=== PATIENT | male | born 1980 | race Caucasian/White ===

== ENCOUNTER 2019-05-05 17:38 | Emergency (ER) | payer SELFPAY ==
[2019-05-05 18:07] VITALS: BP 139/78; PULSE 115; RESP 16; TEMP 36.7; O2SAT 96; BMI 30.4
--- NOTE | 2019-05-05 19:35 | ED_ITS ---
HPI - General Adult General: Chief complaint: General Medical Stated complaint: hand and face swelling Time Seen by Provider: 05/05/19 19:26 History of Present Illness: HPI narrative: Patient complains about a sore in his right hand times few days now has drainage MD complaint: redness hand Onset (ago): day(s) Location: upper extremity Severity: mild Associated symptoms: Deny chest pain, dyspnea, headache(s), nausea, rash or vomiting Review of Systems Const: Denies: fever, chills or body aches Eyes: Denies: change in vision or blurry vision ENMT: Denies: throat pain, painful swallowing (Has wide area side of mouth and the inside patient does chew skeeps inside his mouth) or nasal congestion Card: Denies: chest pain or shortness of breath on exertion Resp: Denies: shortness of breath, productive cough or non-productive cough GI: Denies: abdominal pain, nausea or vomiting : Denies: difficulty urinating Musc: Denies: extremity pain Skin/Breast: Reports: redness, skin swelling and sores (Right hand); Denies: rash Neuro: Denies: headache Psych: Denies: anxiety or depression Oswaldo/Lymph: Denies: easy bruising PFSH ED PFSH: Statuses (acute, chronic, etc) shown below reflect problem list status as previously entered and may not be historically accurate Family History (Updated 04/28/19 @ 10:33 by Bonny Carter LPN) Grandmother Hypertension Social History (Updated 04/29/19 @ 13:08 by Bonny Carter LPN) Smoking and tobacco status: former smoker Alcohol intake: current Household members: spouse and children Marital status: service: No Current occupational status: employed Current occupation: [employer] History of recent travel: No Physical Exam Const: COMMON NORMALS: no apparent distress, average body habitus and oriented x3 HENMT: COMMON NORMALS: normocephalic HEAD & SCALP: normal to inspection and normocephalic FACE & SINUS: normal facial exam MOUTH: oral and palatal mucosa abnormal (Has whitish area to the oral mucosa on the right side near his lower jawline) Eye: COMMON NORMALS: conjunctivae normal GENERAL EYE: normal appearance of both eyes CONJUNCTIVA: Yes conjunctivae normal Neck/C-Spine: COMMON NORMALS: no JVD Chest: COMMONS NORMALS: inspection of chest normal Resp: COMMON NORMALS: normal respiratory effort and clear to auscultation bilaterally AUSCULTATION: clear to auscultation bilaterally Cardio: COMMON NORMALS: no JVD, regular rate and regular rhythm RATE: regular rate RHYTHM: regular rhythm GI: COMMON NORMALS: normal to inspection, nondistended, normoactive bowel sounds Extremity: COMMON NORMALS: normal to inspection and full ROM RIGHT UPPER EXTREMITY: Yes hand & digits (Erythema to the right dorsal hand does have an open sore probably about half centimeter by 2 mm does appear to have some scratches around) EXTREMITY IMAGE (FRONT): 1. erythema, mild Neuro: COMMON NORMALS: oriented x3 Course Vital Signs: Vital signs: Vital Signs Temperature 98.1 F 05/05/19 18:07 Pulse Rate 115 H 05/05/19 18:07 Respiratory Rate 16 05/05/19 18:07 Blood Pressure 139/78 05/05/19 18:07 Pulse Oximetry 96 05/05/19 18:07 Discharge Plan Discharge Patient Disposition: Home, Self-Care Clinical Impression: Leukoplakia of oral mucosa Cellulitis Qualifiers: Site of cellulitis: extremity Site of cellulitis of extremity: upper extremity Laterality: right Qualified Code(s): L03.113 - Cellulitis of right upper limb Condition: Stable Prescriptions: New Bactrim DS 800-160 mg tablet 1 tab PO BID 10 Days Qty: 20 RF: 0 No Action cyclobenzaprine 10 mg tablet 10 mg PO TID PRN (Reason: muscle spasm) RF: 0 prednisone 20 mg tablet 20 mg PO BID RF: 0 diclofenac sodium 75 mg tablet,delayed release (DR/EC) 75 mg PO BID RF: 0 hydrocodone-acetaminophen 5-325 mg tablet 1 tab PO Q6H PRNRF: 0 Discharge Orders: Discharge Order (Routine); Ordered 05/05/19 Ordered By: Donn Baumann Discharge Diet: Usual diet Discharge Activity: Resume usual activity Patient Instructions: Cellulitis (ED) Activity Restrictions/Additional Instructions: Follow-up with medical provider as directed. Take medications as prescribed. Return to the ER are your medical provider if condition worsens. Read and understand discharge instructions. Follow-up with dentist about whitish area in mouth within the next to 3 weeks Coding Level of Care Code ED Opinion Polls Survey Worker for iRcky Verdin
[2019-05-05 20:02] VITALS: BP 124/63; PULSE 88; RESP 16; TEMP 36.8; O2SAT 100
== END 2019-05-05 20:03 | disposition home or self-care (01) ==
PROVIDERS: Emergency Provider Nurse Practitioner Family
DX: K13.21 Leukoplakia of oral mucosa, including tongue (principal); L03.113 Cellulitis of right upper limb; Z87.891 Personal history of nicotine dependence
CPT/HCPCS: 99281

== ENCOUNTER 2019-09-22 17:46 | Emergency (ER) | payer SELFPAY ==
[2019-09-22 17:57] VITALS: BP 182/101; PULSE 85; RESP 14; TEMP 36.8; O2SAT 97; BMI 31.4
--- NOTE | 2019-09-22 18:17 | XR_ITS ---
WS: [id number] XR chest 1V portable [id number] REASON FOR EXAM: cp FINDINGS: Comparisons were made to April 20, 2018. The heart and mediastinal interfaces normal. The lung alva are adequately aerated. No pneumonia, pleural effusion, pulmonary edema, are pneumoth orax. The hilum and apices normal. XR/XR chest 1V portable [id number] IMPRESSION: Chest for acute pathology.
--- NOTE | 2019-09-22 18:17 | ECG_ITS ---
Measurements Intervals [place] Rate: 72 P: 53 NM: 169 QRS: 14 QRSD: 98 T: 18 QT: 344 QTc: 379 SINUS RHYTHM Compared to ECG 04/20/2018 21:17:27 No significant changes Electronically Signed On 09-23-2019 19:36:17 CDT by Ryan Rene M.D. [id number]
[2019-09-22 18:28] VITALS: BP 173/93; PULSE 75; RESP 16
--- NOTE | 2019-09-22 18:38 | W.ED.CHESTPA ---
HPI - Chest Pain General: Chief Complaint: Chest Pain Stated Complaint: cough,cp Time Seen by Provider: 09/22/19 18:17 History of Present Illness: HPI narrative: Chester is a 38-year-old male who comes in complaining of chest pain. He describes the pain as a pressure sensation in the middle of his chest. He states the pain has been constant since Sunday and abhishek waxed and waned in intensity but never completely subsided. He denies any associated symptoms such as radiation, shortness of breath, diaphoresis, nausea or vomiting, fever, syncope or near syncope. Patient states he has had a cough but it has been nonproductive and he denies any fever. Associated symptoms: Deny abdominal pain, diaphoresis, dyspnea, fever(s), nausea, palpitations, syncope or vomiting Review of Systems Const: Denies: fever(s), chills, body aches, fatigue, malaise or diaphoresis Eyes: Denies: change in vision, blurry vision, blind spots or photophobia ENMT: Denies: throat pain, odynophagia, hoarseness, swelling of lips/tongue, ear or mastoid pain, ear discharge, change in hearing or nasal discharge Card: Reports: chest pain; Denies: palpitations, irregular heart rhythm, edema, lightheadedness, syncope, pre-syncope, dyspnea on exertion or orthopnea Resp: Reports: non-productive cough; Denies: dyspnea, productive cough, wheezing, hemoptysis or chest congestion GI: Denies: abdominal pain, nausea, vomiting, hematemesis, coffee ground emesis, heartburn, diarrhea, constipation, GI cramping, hematochezia or melena : Denies: flank pain, dysuria, urinary frequency, urinary urgency or hematuria Musc: Denies: neck pain, back pain, extremity pain, extremity swelling, joint pain, joint swelling, joint redness, joint warmth or joint stiffness Skin/Breast: Denies: rash, pruritus, erythema, skin tenderness or jaundice Neuro: Denies: headache(s), numbness in extremities, weakness in extremities, sensory changes, lack of coordination, difficulty walking, dizziness, vertigo, confusion or Slurred speech present Oswaldo/Lymph: Denies: easy bruising, easy bleeding, petechiae, purpura or enlarged lymph nodes All/Imm: Denies: urticaria, throat swelling, tongue swelling, facial swelling or acute wheezing PFSH ED PFSH: Medical History (Updated 09/22/19 @ 19:48 by Lisa Akers) No pertinent past medical history Surgical History (Updated 09/22/19 @ 18:40 by Lisa Akers) H/O hemorrhoidectomy Family History (Updated 04/28/19 @ 10:33 by Bonny Carter LPN) Grandmother Hypertension Social History (Updated 04/29/19 @ 13:08 by Bonny Carter LPN) Smoking and tobacco status: never smoked Alcohol intake: current Household members: spouse and children Marital status: service: No Current occupational status: employed Current occupation: [employer] History of recent travel: No Physical Exam Const: COMMON NORMALS: no acute distress, patient oriented x3, no limitations, healthy appearing and well nourished GENERAL APPEARANCE: cooperative, well kempt and well developed HENMT: COMMON NORMALS: normocephalic, atraumatic, hearing grossly normal bilaterally, external ears normal, EAC's normal, Normal external nose present and moist oral mucous membranes HEAD & SCALP: normocephalic and atraumatic NOSE: Normal external nose present and Normal nares present EXTERNAL EAR: Yes external ears normal EXTERNAL AUDITORY CANAL: EAC's normal MOUTH: Normal oral and palatal mucosa present, lip normal and tongue normal Eye: COMMON NORMALS: Equal, round and reactive pupils present, EOMs intact bilaterally, conjunctivae normal and no scleral icterus GENERAL EYE: appearance normal, both eyes and all related structures ALIGNMENT: Yes alignment normal PERIORBITAL: periorbital findings normal EYELID: eyelids normal CONJUNCTIVA: Yes conjunctivae normal SCLERA: sclerae normal PUPIL: Yes Equal, round and reactive pupils present Neck/C-Spine: COMMON NORMALS: full ROM, no lymphadenopathy, supple, no meningeal signs and no JVD GENERAL: Yes normal visual inspection and Yes trachea midline Chest: COMMONS NORMALS: normal inspection of the chest and normal palpation of entire chest wall Resp: COMMON NORMALS: normal respiratory effort, No retractions, No use of accessory muscles and clear to auscultation bilaterally EFFORT & INSPECTION: Yes able to speak in complete sentences and Yes symmetric chest movement AUSCULTATION: clear to auscultation bilaterally, no crackles, no rales, no rhonchi and no wheezes Cardio: COMMON NORMALS: no JVD, regular rate, regular rhythm, S1 normal heart sound present, S2 normal heart sound present, No gallops present (Cardio), No clicks present (Cardio), No murmurs present (Cardio) and No rub (Cardio) RATE: regular rate RHYTHM: regular rhythm HEART SOUNDS: S1 normal heart sound present and S2 normal heart sound present GI: COMMON NORMALS: Soft to palpation and No hepatosplenomegaly present PALPATION: Yes Soft to palpation, No Tenderness to palpation present (GI), No Guarding due to palpation present (GI), No Rigid due to palpation, Yes No hepatosplenomegaly present, No Hernia present, No Palpable mass present and No Pulsatile mass present : COMMON NORMALS: Yes no CVA tenderness BLADDER/KIDNEY EXAM: Yes no CVA tenderness Back/Pelvis: COMMON NORMALS: no CVA tenderness, thoracic and lumbar spine normal to inspection, no thoracic nor lumbar tenderness and thoraco-lumbar ROM normal Extremity: COMMON NORMALS: normal to inspection, full ROM, capillary refill normal, no joint enlargement, no clubbing, cyanosis or edema and no calf tenderness Neuro: COMMON NORMALS: patient oriented x3, CN's II-XII intact bilaterally, moves all extremities, no focal motor deficits and no sensory deficits noted MENINGEAL SIGNS: Yes no meningeal signs SPEECH: speech normal Psych: COMMON NORMALS: mental status grossly normal, Normal thought process present, cooperative, normal affect, speech normal and activity/motor behavior normal APPEARANCE: Yes well kempt SPEECH: Yes normal speech THOUGHT PROCESS: Normal thought process present Skin: COMMON NORMALS: no rashes or lesions noted, turgor normal, no jaundice, no petechiae and no mottling GENERAL SKIN EXAM: no rashes or lesions noted and turgor normal Course Vital Signs: Vital signs: Vital Signs Temperature 98.3 F 09/22/19 17:57 Pulse Rate 75 09/22/19 20:37 Respiratory Rate 18 09/22/19 20:37 Blood Pressure 144/97 09/22/19 20:37 Pulse Oximetry 97 09/22/19 20:37 MDM - Chest Pain MDM Narrative: Medical decision making narrative: Patient is PERC rule negative. He has no signs or symptoms of PE. Patient has had constant chest pain for 3 days. Per the hospital chest pain pathway and utilizing the heart score the patient should be safe for discharge. His heart score is 1. He is now asking about tick bites he said he was bitten by a tick but wanted to know if that could cause chest discomfort but I see no evidence of blocks or Lyme's myocarditis. Patient declines any further testing and would like to go home. He does agree to return should his symptoms change or worsen. Lab Data: Attestation: I reviewed the patient's lab results. Labs: Lab Results 09/22/19 09/22/19 09/22/19 Range/Units 18:25 18:25 18:25 WBC 6.1 (4.0-10.0) 10^3/ uL RBC 4.85 (4.1-5.3) 10^6/u L Hgb 14.1 (11.7-16.6) g/dL Hct 42.7 (42.0-52.0) % MCV 88.0 (80-94) fL MCH 29.1 (28.0-34.0) pg MCHC 33.0 (30.0-36.0) g/dL RDW 11.9 L (12.1-15.1) % Plt Count 213 (130-400) 10^3/c mm MPV 10.4 (7.4-10.4) fL Neut % (Auto) 59.3 % Lymph % (Auto) 27.1 % Evangeline % (Auto) 9.9 % Eos % (Auto) 2.0 % Baso % (Auto) 1.5 % Neut # (Auto) 3.6 (1.8-7.7) 10^3/u L Lymph # (Auto) 1.6 (0.8-4.8) 10^3/u L Evangeline # (Auto) 0.6 (0.2-0.9) 10^3/u L Eos # (Auto) 0.1 (0.0-0.8) 10^3/u L Baso # (Auto) 0.1 (0.0-0.1) 10^3/u L Nucleated RBC % (a uto) 0 % Nucleated RBCs # 0.0 /100WBC Sodium 139 (136-145) mmol/L Potassium 4.0 (3.5-5.1) mmol/L Chloride 100 (98-107) mmol/L Carbon Dioxide 25 (22-29) mmol/L Anion Gap 18.0 (5-19) BUN 11 (6-20) mg/dL Creatinine 1.4 H (0.7-1.2) mg/dL GFR Calculation 56.1 L (90-130) mL/min Glucose 119 H (65-115) mg/dL Calculated Osmolal ity 285 (285-295) mOsm/k g Calcium 9.6 (8.5-10.5) mg/dL Total Bilirubin 0.4 (0.15-1.2) mg/dL AST 40 (0-40) U/L ALT 59 H (0-41) U/L Alkaline Phosphata se 97 (40-130) IU/L Troponin T Baselin e 15 (0-15) ng/mL Troponin T 120 Min francesca (0-15) ng/mL Total Protein 7.1 (6.6-8.7) g/dL Albumin 4.5 (3.5-5.2) g/dL Globulin 2.6 (1.3-4.6) g/dL 09/22/19 Range/Units 20:06 WBC (4.0-10.0) 10^3/ uL RBC (4.1-5.3) 10^6/u L Hgb (11.7-16.6) g/dL Hct (42.0-52.0) % MCV (80-94) fL MCH (28.0-34.0) pg MCHC (30.0-36.0) g/dL RDW (12.1-15.1) % Plt Count (130-400) 10^3/c mm MPV (7.4-10.4) fL Neut % (Auto) % Lymph % (Auto) % Evangeline % (Auto) % Eos % (Auto) % Baso % (Auto) % Neut # (Auto) (1.8-7.7) 10^3/u L Lymph # (Auto) (0.8-4.8) 10^3/u L Evangeline # (Auto) (0.2-0.9) 10^3/u L Eos # (Auto) (0.0-0.8) 10^3/u L Baso # (Auto) (0.0-0.1) 10^3/u L Nucleated RBC % (a uto) % Nucleated RBCs # /100WBC Sodium (136-145) mmol/L Potassium (3.5-5.1) mmol/L Chloride (98-107) mmol/L Carbon Dioxide (22-29) mmol/L Anion Gap (5-19) BUN (6-20) mg/dL Creatinine (0.7-1.2) mg/dL GFR Calculation (90-130) mL/min Glucose (65-115) mg/dL Calculated Osmolal ity (285-295) mOsm/k g Calcium (8.5-10.5) mg/dL Total Bilirubin (0.15-1.2) mg/dL AST (0-40) U/L ALT (0-41) U/L Alkaline Phosphata se (40-130) IU/L Troponin T Baselin e (0-15) ng/mL Troponin T 120 Min francesca 15.83 H (0-15) ng/mL Total Protein (6.6-8.7) g/dL Albumin (3.5-5.2) g/dL Globulin (1.3-4.6) g/dL Imaging Data^: CXR: Attestation: I personally reviewed and interpreted this imaging study as follows: My impression: No acute cardiopulmonary findings. EKG Data^: EKG 1: Attestation: I personally reviewed and interpreted this EKG as follows: EKG interpretation date: 09/22/19 EKG interpretation time: 17:56 Interpretation: Normal sinus rhythm at 72 beats a minute, normal axis, no blocks, normal intervals, no acute ST or T wave changes. Discharge Plan Discharge Patient Disposition: Home, Self-Care Clinical Impression: Chest pain Qualifiers: Chest pain type: unspecified Qualified Code(s): R07.9 - Chest pain, unspecified Condition: Stable Prescriptions: No Action Aspir-81 81 mg Tablet,Delayed Release (Dr/Ec) 81 mg PO DAILY RF: 0 Discharge Orders: Discharge Order (Routine); Ordered 09/22/19 Ordered By: Lisa Akers Referrals: Ryan Rene MD [Physician] - 1-3 days Discharge Diet: Advance as tolerated Discharge Activity: Resume usual activity Patient Instructions: Chest Pain (ED) Activity Restrictions/Additional Instructions: Please return to the ER immediately for any of the signs or symptoms listed on your discharge instruction sheets, worsening/changing of your symptoms, you are not getting better as quickly as expected, or for ANY other cause or concerns. You have been offered further evaluation and care of your heart but have declined. If your symptoms change or worsen in any way please return to the ER immediately for recheck. Stand Alone Forms: Work/School Release Discharge Date/Time: 09/22/19 20:38 Coding Level of Care Code ED Hand Deicer Element Winder for Ricky Fwd Exam Comprehensive
[2019-09-22 18:46] LABS: Basophils # 0.1 10^3/uL (0.0-0.1); Basophils % 1.5 %; Eosinophils # 0.1 10^3/uL (0.0-0.8); Hematocrit 42.7 % (42.0-52.0); Hemoglobin 14.1 g/dL (11.7-16.6); Lymphocytes # 1.6 10^3/uL (0.8-4.8); Lymphocytes % 27.1 %; Mean Corpuscular Hemoglobin 29.1 pg (28.0-34.0); Mean Platelet Volume 10.4 fL (7.4-10.4); Monocytes # 0.6 10^3/uL (0.2-0.9); Monocytes % 9.9 %; Neutrophils # 3.6 10^3/uL (1.8-7.7); Neutrophils % 59.3 %; Nucleated Red Blood Cells % 0 %; Platelet Count 213 10^3/cmm (130-400); Red Blood Count 4.85 10^6/uL (4.1-5.3); Red Cell Distribution Width 11.9 % (12.1-15.1); White Blood Count 6.1 10^3/uL (4.0-10.0)
[2019-09-22 19:21] LABS: Troponin(5th) Baseline 15 ng/mL (0-15)
[2019-09-22 19:38] LABS: Alanine Aminotransferase 59 U/L (0-41); Albumin Level 4.5 g/dL (3.5-5.2); Alkaline Phosphatase 97 IU/L (40-130); Aspartate Amino Transferase 40 U/L (0-40); Blood Urea Nitrogen 11 mg/dL (6-20); Calcium 9.6 mg/dL (8.5-10.5); Carbon Dioxide 25 mmol/L (22-29); Chloride 100 mmol/L (98-107); Globulin 2.6 g/dL (1.3-4.6); Glomerular Filtration Rate 56.1 mL/min (90-130); Glucose 119 mg/dL (65-115); Osmolality Calculated 285 mOsm/kg (285-295); Sodium 139 mmol/L (136-145); Total Bilirubin 0.4 mg/dL (0.15-1.2); Total Protein 7.1 g/dL (6.6-8.7)
--- NOTE | 2019-09-22 20:17 | ECG_ITS ---
Measurements Intervals [place] Rate: 69 P: 62 [place]: 168 QRS: 6 QRSD: 94 T: 19 QT: 368 QTc: 396 SINUS RHYTHM Compared to ECG 04/20/2018 21:17:27 No significant changes Electronically Signed On 09-23-2019 19:39:13 CDT by Ryan Rene M.D. [id number]
[2019-09-22 20:37] VITALS: BP 144/97; PULSE 75; RESP 18; O2SAT 97
[2019-09-22 20:40] LABS: Troponin 5 2HR 15.83 ng/mL (0-15); Troponin 5 2HR Delta 0.83 ABS# (0-10)
== END 2019-09-22 20:38 | disposition home or self-care (01) ==
PROVIDERS: Emergency Medicine; Emergency Provider Emergency Medicine
DX: R07.9 Chest pain, unspecified (principal); Z79.82 Long term (current) use of aspirin
CPT/HCPCS: 12345; 36415; 71045; 80053; 84484; 85025; 93005; 99283; 99284

== ENCOUNTER → 2021-03-30 14:29 | Outpatient (BNVA) | payer MEDICAID, SELFPAY | PROVIDERS: Visit Provider Nurse Practitioner | DX: M25.511 Pain in right shoulder; M19.011 Primary osteoarthritis, right shoulder | CPT/HCPCS: 73030 ==

== ENCOUNTER → 2021-06-29 09:27 | Outpatient (BNVA) | payer MEDICAID, SELFPAY | PROVIDERS: Visit Provider Family Medicine Adult Medicine | DX: Z13.6 Encounter for screening for cardiovascular disorders (principal) | CPT/HCPCS: 80053; 80061; 83036; 83721; 84443; 85025 ==

== ENCOUNTER → 2021-07-12 14:55 | Outpatient (BNVA) | payer MEDICAID, SELFPAY | PROVIDERS: Visit Provider Family Medicine Adult Medicine | DX: M75.51 Bursitis of right shoulder (principal); M19.011 Primary osteoarthritis, right shoulder; Z80.0 Family history of malignant neoplasm of digestive organs | CPT/HCPCS: 73030 ==

== ENCOUNTER 2021-07-14 20:14 | Emergency (ER) | payer MEDICAID, SELFPAY ==
[2021-07-14 20:29] VITALS: BP 169/100; PULSE 96; RESP 20; TEMP 37; O2SAT 96; BMI 32.1
--- NOTE | 2021-07-14 20:33 | XRR_ITS ---
PROCEDURE INFORMATION: Exam: XR Chest Exam date and time: 07/14/2021 8:38 PM Age: 40 years old Clinical indication: Chest pressure; Patient HX: C/O chest pain. ; Additional info: Cp TECHNIQUE: Imaging protocol: XR of the chest. Views: 1 view. COMPARISON: CR XR chest 1V portable [id number] 09/22/2019 6:26 PM FINDINGS: Lungs: Lungs are clear bilaterally. Pleural spaces: No pleural effusion. No pneumothorax. Heart/Mediastinum: Stable mild enlargement of the cardiac silhouette. Mediastinal contours are unremarkable. Bones/joints: Unremarkable for age. XR/XR chest 1V portable [id number] IMPRESSION: 1. No acute cardiopulmonary process. 2. Stable mild enlargement of the cardiac silhouette.
--- NOTE | 2021-07-14 20:33 | ECG_ITS ---
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 Measurements Intervals [place] Rate: 80 P: 71 [place]: 159 QRS: 28 QRSD: 98 T: 46 QT: 337 QTc: 390 Interpretive Statements SINUS RHYTHM WITH SINUS ARRHYTHMIA Compared to ECG 09/22/2019 20:20:47 No significant changes Electronically Signed On 07-15-2021 17:45:59 CDT by Sabra Gardner M.D. [id number] f
[2021-07-14 22:05] LABS: Basophils # 0.1 10^3/uL (0.0-0.1); Basophils % 1.4 %; Eosinophils # 0.4 10^3/uL (0.0-0.8); Eosinophils % 5.3 %; Lymphocytes # 1.7 10^3/uL (0.8-4.8); Lymphocytes % 21.9 %; Mean Corpuscular HGB Conc 33.3 g/dL (30.0-36.0); Mean Corpuscular Hemoglobin 30.1 pg (28.0-34.0); Mean Corpuscular Volume 90.4 fl (80-94); Mean Platelet Volume 9.9 fL (7.4-10.4); Monocytes # 0.8 10^3/uL (0.2-0.9); Monocytes % 10.6 %; Neutrophils # 4.69 10^3/uL (1.8-7.7); Neutrophils % 60.5 %; Nucleated Red Blood Cells % 0 %; Platelet Count 267 10^3/cmm (130-400); Red Blood Count 4.98 10^6/uL (4.1-5.3); Red Cell Distribution Width 11.8 % (12.1-15.1); White Blood Count 7.8 10^3/uL (4.0-10.0)
[2021-07-14 22:22] LABS: Troponin(5th) Baseline 6 ng/L (0-15)
[2021-07-14 22:24] LABS: Alanine Aminotransferase 75 U/L (0-41); Albumin Level 4.7 g/dL (3.5-5.2); Alkaline Phosphatase 72 IU/L (40-130); Anion Gap 13.1 (5-19); Aspartate Amino Transferase 45 U/L (0-40); Blood Urea Nitrogen 14 mg/dL (6-20); Calcium 9.8 mg/dL (8.5-10.5); Carbon Dioxide 28 mmol/L (22-29); Chloride 104 mmol/L (98-107); Glomerular Filtration Rate 92.5 mL/min (90-130); Glucose 93 mg/dL (65-115); Osmolality Calculated 292 mOsm/kg (285-295); Potassium 4.1 mmol/L (3.5-5.1); Sodium 141 mmol/L (136-145); Total Bilirubin 0.4 mg/dL (0.15-1.2); Total Protein 6.7 g/dL (6.6-8.7)
--- NOTE | 2021-07-14 22:33 | ECG_ITS ---
[facility] Test Date: 2021-07-14 Pat Name: Chester To Department: Room: Gender: Male College Hire: : 1980 Requested By: Marcelle Begum Order Number: [id number] Avni MD: Sabra Gardner M.D. Measurements Intervals [place] Rate: 63 P: 67 [place]: 163 QRS: 29 QRSD: 98 T: 38 QT: 371 QTc: 381 Interpretive Statements SINUS RHYTHM Compared to ECG 07/14/2021 20:25:40 Sinus arrhythmia no longer present Electronically Signed On 07-15-2021 17:52:01 CDT by Sabra Gardner M.D. [id number]
[2021-07-14 23:16] VITALS: BP 136/90; PULSE 70; RESP 20; O2SAT 97
[2021-07-14 23:30] VITALS: BP 138/94; PULSE 67; RESP 18; O2SAT 97
[2021-07-14 23:36] VITALS: O2SAT 97
[2021-07-14 23:58] LABS: D Dimer <= 0.27 ug/mIFEU (0-0.59)
--- NOTE | 2021-07-14 23:58 | W.ED.CHESTPA ---
HPI - Chest Pain General: Chief Complaint: Chest Pain Stated Complaint: Chest Pain Poss Heart Attack Time Seen by Provider: 07/14/21 23:06 Source: patient Mode of arrival: ambulatory Limitations: no limitations History of Present Illness: 40-year-old male who states that throughout the day has been having a sharp sore-like pain in the center of his chest he states has been constant but has been improving throughout the day. States pain is currently 2 out of 10 denies any worsening improving factors denies any exertional component. Denies any nausea had some mild dyspnea. Associated symptoms: Reports dyspnea; Deny abdominal pain, fever(s), nausea or vomiting Review of Systems Const: Denies: fever(s), chills, body aches or change in appetite Eyes: Denies: blurry vision or eye discomfort ENMT: Denies: throat pain or dental pain Card: Reports: chest pain Resp: Reports: dyspnea GI: Denies: abdominal pain, nausea, vomiting or diarrhea : Denies: dysuria Musc: Denies: neck pain or back pain Skin/Breast: Denies: rash Neuro: Denies: headache(s) Psych: Denies: depression Oswaldo/Lymph: Denies: easy bruising All/Imm: Denies: urticaria PFSH ED PFSH: Medical History AC joint arthropathy Chronic bursitis of right shoulder Family history of colon cancer Hyperlipidemia Obesity (BMI 30.0-34.9) Surgical History H/O hemorrhoidectomy Family History Grandmother Hypertension Other Cancer Social History Smoking and tobacco status: former smoker (chew) Alcohol intake: current Household members: spouse and children Marital status: service: No Current occupational status: employed Current occupation: [employer] [place] [employer] History of recent travel: No Physical Exam Const: COMMON NORMALS: no acute distress, patient oriented x3 and healthy appearing HENMT: COMMON NORMALS: normocephalic and atraumatic HEAD & SCALP: normocephalic and atraumatic Eye: COMMON NORMALS: Equal, round and reactive pupils present and EOMs intact bilaterally PUPIL: Yes Equal, round and reactive pupils present Neck/C-Spine: COMMON NORMALS: full ROM and supple Chest: COMMONS NORMALS: normal inspection of the chest and normal palpation of entire chest wall Resp: COMMON NORMALS: normal respiratory effort, No retractions, No use of accessory muscles and clear to auscultation bilaterally AUSCULTATION: clear to auscultation bilaterally Cardio: COMMON NORMALS: regular rate, regular rhythm and No murmurs present (Cardio) RATE: regular rate RHYTHM: regular rhythm GI: COMMON NORMALS: Normal to inspection, nondistended, normoactive bowel sounds present, Soft to palpation, non-tender and no masses PALPATION: Yes Soft to palpation Extremity: COMMON NORMALS: normal to inspection and full ROM Neuro: COMMON NORMALS: patient oriented x3, moves all extremities and no focal motor deficits Psych: COMMON NORMALS: mental status grossly normal, Normal thought process present and cooperative THOUGHT PROCESS: Normal thought process present Skin: COMMON NORMALS: no rashes or lesions noted and no wounds GENERAL SKIN EXAM: no rashes or lesions noted Course Vital Signs: Vital signs: Vital Signs Temperature 98.6 F 07/14/21 20:29 Pulse Rate 67 07/14/21 23:30 Respiratory Rate 18 07/14/21 23:30 Blood Pressure 138/94 07/14/21 23:30 Pulse Oximetry 97 07/14/21 23:36 MDM - Chest Pain Medical Decision Making Patient presents for chest pains atypical in nature his initial troponin repeat troponin here both normal. Patient's D-dimer is negative his pain here is improved we will get him cardiology follow-up he is return if worsening he understands agrees to plan. Lab Data : 07/14/21 21:50 07/14/21 21:50 Radiology Impressions Chest X-Ray 07/14/21 20:33 IMPRESSION: 1. No acute cardiopulmonary process. 2. Stable mild enlargement of the cardiac silhouette. Laboratory Results WBC 7.8 10^3/uL (4.0-10.0) 07/14/21 21:50 RBC 4.98 10^6/uL (4.1-5.3) 07/14/21 21:50 Hgb 15.0 g/dL (11.7-16.6) 07/14/21 21:50 Hct 45.0 % (42.0-52.0) 07/14/21 21:50 MCV 90.4 fl (80-94) 07/14/21 21:50 MCH 30.1 pg (28.0-34.0) 07/14/21 21:50 MCHC 33.3 g/dL (30.0-36.0) 07/14/21 21:50 RDW 11.8 % (12.1-15.1) L 07/14/21 21:50 Plt Count 267 10^3/cmm (130-400) 07/14/21 21:50 MPV 9.9 fL (7.4-10.4) 07/14/21 21:50 Neut % (Auto) 60.5 % 07/14/21 21:50 Lymph % (Auto) 21.9 % 07/14/21 21:50 Emmons % (Auto) 10.6 % 07/14/21 21:50 Eos % (Auto) 5.3 % 07/14/21 21:50 Baso % (Auto) 1.4 % 07/14/21 21:50 Neut # (Auto) 4.69 10^3/uL (1.8-7.7) 07/14/21 21:50 Lymph # (Auto) 1.7 10^3/uL (0.8-4.8) 07/14/21 21:50 Emmons # (Auto) 0.8 10^3/uL (0.2-0.9) 07/14/21 21:50 Eos # (Auto) 0.4 10^3/uL (0.0-0.8) 07/14/21 21:50 Baso # (Auto) 0.1 10^3/uL (0.0-0.1) 07/14/21 21:50 Nucleated RBC % (auto) 0 % 07/14/21 21:50 Nucleated RBCs # 0.0 /100WBC 07/14/21 21:50 D-Dimer <= 0.27 ug/mIFEU (0-0.59) 07/14/21 23:39 Sodium 141 mmol/L (136-145) 07/14/21 21:50 Potassium 4.1 mmol/L (3.5-5.1) 07/14/21 21:50 Chloride 104 mmol/L (98-107) 07/14/21 21:50 Carbon Dioxide 28 mmol/L (22-29) 07/14/21 21:50 Anion Gap 13.1 (5-19) 07/14/21 21:50 BUN 14 mg/dL (6-20) 07/14/21 21:50 Creatinine 0.9 mg/dL (0.7-1.2) 07/14/21 21:50 GFR Calculation 92.5 mL/min (90-130) 07/14/21 21:50 Glucose 93 mg/dL (65-115) 07/14/21 21:50 Calculated Osmolality 292 mOsm/kg (285-295) 07/14/21 21:50 Calcium 9.8 mg/dL (8.5-10.5) 07/14/21 21:50 Total Bilirubin 0.4 mg/dL (0.15-1.2) 07/14/21 21:50 AST 45 U/L (0-40) H 07/14/21 21:50 ALT 75 U/L (0-41) H 07/14/21 21:50 Alkaline Phosphatase 72 IU/L (40-130) 07/14/21 21:50 Troponin T Baseline 6 ng/L (0-15) 07/14/21 21:50 Troponin T 120 Minute 6.71 ng/L (0-15) 07/14/21 23:39 Delta Troponin T 0.71 ABS# (0-10) 07/14/21 23:39 Total Protein 6.7 g/dL (6.6-8.7) 07/14/21 21:50 Albumin 4.7 g/dL (3.5-5.2) 07/14/21 21:50 Globulin 2.0 g/dL (1.3-4.6) 07/14/21 21:50 EKG Data EKG 1: I personally reviewed and interpreted this EKG as follows: EKG interpretation date: 07/15/21 EKG interpretation time: 22:30 Interpretation: nsr hr [address] or t wave abnormalities qrs 98 qtc 378 Discharge Plan Discharge Patient Disposition: Home Clinical Impression: Chest pain Condition: Stable Prescriptions: No Action meloxicam 15 mg tablet 15 mg PO DAILY 14 Days Qty: 14 0RF baclofen 10 mg tablet 10 mg PO TID Qty: 20 0RF atorvastatin 20 mg tablet 20 mg PO DAILY Qty: 30 5RF Discharge Orders: Discharge ED (Routine); Ordered 07/15/21 Ordered By: Marcelle Begum Referrals: Sabra Gardner MD [Physician] - 1-3 days Discharge Diet: Advance as tolerated Discharge Activity: Resume usual activity Patient Instructions: Chest Pain (ED) Coding Level of Care Code ED Public Transit Specialist for Chg Fwd Exam Comprehensive
[2021-07-15 00:01] LABS: Troponin 5 2HR 6.71 ng/L (0-15)
[2021-07-15 00:04] LABS: Troponin 5 2HR Delta 0.71 ABS# (0-10)
[2021-07-15] MEDS: aspirin 81 mg Chew Tablet 324 MG PO (00:04)
[2021-07-15 01:12] VITALS: BP 145/88; PULSE 79; RESP 20; O2SAT 96
--- NOTE | 2021-07-15 10:29 | DCPLANNER ---
Addendum entered by Aminah Jeffery 09/08/21 10:15: Patient had a follow up appointment scheduled for 09.06.[address] Gardner at [facility] - patient did not attend appointment. Addendum entered by Aminah Jeffery 07/19/21 13:23: Patient has a follow up appointment scheduled for Monday, September 06, 2021 at 2:[address] Gardner at [facility]. manager statistical programming called patient, spoke with his , gave her the appointment information. Original Note: manager statistical programming had message to schedule a follow up appointment for patient with [facility]. manager statistical programming sent patients information to [facility], thru [employer] system. Patients information will be printed and reviewed. Clinic will inform gearcase assembler of appointment information, gearcase assembler will call patient with appointment information.
== END 2021-07-15 01:14 | disposition home or self-care (01) ==
PROVIDERS: Emergency Provider Emergency Medicine
DX: R07.9 Chest pain, unspecified (principal); E78.5 Hyperlipidemia, unspecified; Z87.891 Personal history of nicotine dependence
CPT/HCPCS: 36415; 71045; 80053; 84484; 85025; 85378; 93005; 99284

== ENCOUNTER → 2021-08-02 13:06 | Outpatient (BNVA) | payer MEDICAID, SELFPAY | PROVIDERS: Referring Provider Family Medicine Adult Medicine; Visit Provider Orthopaedic Surgery | DX: M25.511 Pain in right shoulder (principal); Z87.891 Personal history of nicotine dependence | CPT/HCPCS: 99203 ==

== ENCOUNTER 2021-08-24 06:53 | Day surgery (SDC) | payer MEDICAID, SELFPAY ==
[2021-08-22 08:34] VITALS: BMI 30.7
[2021-08-24 07:08] VITALS: BP 142/91; PULSE 66; RESP 18; TEMP 36.3; O2SAT 96
[2021-08-24] MEDS: sodium chloride 0.9% 1,000 ML 30 ML IV (07:18)
--- NOTE | 2021-08-24 07:58 | P.HP_ITS ---
Same Day Surgery H&P Indication for Procedure/HPI DATE OF PROCEDURE: August 24, 2021 CHIEF COMPLAINT/INDICATIONFOR SURGICAL PROCEDURE: colonoscopy PREOP DIAGNOSIS: diagnostic PLANNED PROCEDURE: Operation Date: 08/24/21 08:30 Proposed Procedures p EGD [id number]/r10.9/z80.0(Not Applicable) - Demetrius Reece MD s Colonoscopy(Not Applicable) - Demetrius Reece MD Medications/Allergies* Home Medications Medication Instructions Recorded Confirmed Type No Known Home Medications 08/22/21 08/24/21 History Allergies/Adverse Reactions Allergy/AdvReac Type Severity Reaction Status Date / Time No Known Allergies Allergy Verified 08/24/21 07:07 Current Medications: Generic Name Dose Route Start Last Admin Trade Name Freq PRN Reason Stop Dose Admin Sodium Chloride 1,000 mls @ 30 mls/hr 08/24/21 07:15 08/24/21 07:18 Sodium Chloride 0.9% IV 08/25/21 07:14 30 mls/hr .Q24H JD Administration Pertinent History/Comorbid Conditions* Medical History (Updated 08/02/21 @ 13:52 by Jarocho Taylor MD) Chronic bursitis of right shoulder History of femoral angiogram Hyperlipidemia Surgical History (Updated 09/22/19 @ 18:40 by Lisa Akers) H/O hemorrhoidectomy Family History (Updated 07/12/21 @ 14:22 by Carole Almazan LPN) Cancer Hypertension Grandmother Social History Smoking and tobacco status: former smoker (chew) Alcohol intake: current Household members: spouse and children Marital status: service: No Current occupational status: employed Current occupation: [employer] History of recent travel: No Pertinent Exam Findings alert, oriented x 3 and regular rate & rhythm Recommendations Surgery/Procedure today Coding Level of Care Code Acute Degreasing Wheel Operator for Ricky Verdin
--- NOTE | 2021-08-24 07:59 | ANES.PREANE2 ---
Pre-Anesthetic Assessment Height/Weight: Height 1.8 m Weight 99.79 kg Temp Pulse Resp BP Pulse Ox 97.3 F L 66 18 142/91 96 08/24/21 07:08 08/24/21 07:08 08/24/21 07:08 08/24/21 07:08 08/24/21 07:08 Preop Diagnosis: diagnostic Operation Date: 08/24/21 08:30 Proposed Procedures p EGD [id number]/r10.9/z80.0(Not Applicable) - Demetrius Reece MD s Colonoscopy(Not Applicable) - Demetrius Reece MD Familial anesthetic complications: none Was Beta Rudi taken within 24 hours: N/A Was Clonidine taken within 24 hours: N/A Last intake: Intake Last Liquid Date 08/23/21 Last Liquid Time 23:30 Last Solid Date 08/22/21 Last Solid Time 20:30 Social No alcohol and No tobacco (h/o smoking) Exam alert, oriented x 3, clear to auscultation bilaterally and regular rate & rhythm Airway Submandibular: within normal limits Cervical ROM: within normal limits Mallampati: Class II Dentition: chipped Pulmonary Chronic Obstructive Pulmonary Disease CV/HEM Hypertension Metabolic Hyperlipidemia and Morbid Obesity Neuropsych Cerebrovascular Accident and Deficit (left facial droop) Anesthetic Plan ASA status: 3 Anesthesia: MAC Medications/Allergies Home Medications Medication Instructions Recorded Confirmed Last Taken Type No Known Home Medications 08/22/21 08/24/21 Unknown History Allergies Allergy/AdvReac Type Severity Reaction Status Date / Time No Known Allergies Allergy Verified 08/24/21 07:07 Current Medications Generic Name Dose Route Start Last Admin Trade Name Freq PRN Reason Stop Dose Admin Sodium Chloride 1,000 mls @ 30 mls/hr 08/24/21 07:15 08/24/21 07:18 Sodium Chloride 0.9% IV 08/25/21 07:14 30 mls/hr .Q24H JD Administration PFSH Anesthesia Medical History Chronic bursitis of right shoulder History of femoral angiogram Hyperlipidemia Surgical History H/O hemorrhoidectomy Family History Grandmother Hypertension Other Cancer Social History Smoking and tobacco status: former smoker (chew) Alcohol intake: current Household members: spouse and children Marital status: service: No Current occupational status: employed Current occupation: [employer] History of recent travel: No Data Anesthesia Cardiac Studies: No Data to Display
[2021-08-24 08:47] VITALS: BP 170/87; PULSE 88; RESP 14; TEMP 36.1; O2SAT 95
[2021-08-24 09:00] VITALS: BP 105/78; PULSE 88; RESP 16; O2SAT 96
--- NOTE | 2021-08-24 12:37 | ANE.PACU2 ---
Inpatient post-anesthesia follow up: Airway intact: Yes Vital signs: Temperature 97 F Pulse Rate 88 Respiratory Rate 16 Blood Pressure 105/78 Pulse Oximetry 96 Oxygen Delivery Me thod Room Air Oxygen Flow Rate 4 Fraction of Inspir ed Oxygen Hydration adequate: Yes Nausea and vomiting: No Pain level: 1 Mental status: Baseline
== END 2021-08-24 09:15 | disposition home or self-care (01) ==
PROVIDERS: PCP Family Medicine Adult Medicine; Visit Provider Surgery
PROC: 0DJ08ZZ Inspection of Upper Intestinal Tract, Via Natural or Artificial Opening Endoscopic (ICD-10-PCS; CPT 43235; principal; 2021-08-24 08:30)
PROC: 0DJD8ZZ Inspection of Lower Intestinal Tract, Via Natural or Artificial Opening Endoscopic (ICD-10-PCS; CPT 45378; 2021-08-24 08:30)
DX: R10.9 Unspecified abdominal pain (principal); Z80.0 Family history of malignant neoplasm of digestive organs; K20.90 Esophagitis, unspecified without bleeding; K57.30 Diverticulosis of large intestine without perforation or abscess without bleeding; J44.9 Chronic obstructive pulmonary disease, unspecified; I10 Essential (primary) hypertension; E78.5 Hyperlipidemia, unspecified; E66.01 Morbid (severe) obesity due to excess calories; Z68.30 Body mass index [BMI] 30.0-30.9, adult; I69.992 Facial weakness following unspecified cerebrovascular disease; F17.220 Nicotine dependence, chewing tobacco, uncomplicated
CPT/HCPCS: 43239; 45378; 88305; J2704; J7030

== ENCOUNTER → 2021-09-05 13:04 | Outpatient (BNVA) | payer MEDICAID, SELFPAY | PROVIDERS: PCP Family Medicine Adult Medicine; Visit Provider Surgery | DX: Z09 Encounter for follow-up examination after completed treatment for conditions other than malignant neoplasm (principal) | CPT/HCPCS: 99212 ==

== ENCOUNTER → 2021-09-29 10:59 | Outpatient (BNVA) | payer MEDICAID, SELFPAY | PROVIDERS: PCP Family Medicine Adult Medicine; Visit Provider Registered Nurse Neonatal Intensive Care | DX: M79.642 Pain in left hand (principal) | CPT/HCPCS: 73130 ==

== ENCOUNTER 2021-12-10 19:15 | Emergency (ER) | payer MEDICAID, SELFPAY ==
[2021-12-10 19:58] VITALS: BP 132/76; PULSE 103; RESP 16; TEMP 36.8; O2SAT 95; BMI 32.1
[2021-12-10 20:13] VITALS: BP 132/76; PULSE 103; RESP 16; TEMP 36.8; O2SAT 95
--- NOTE | 2021-12-10 20:52 | ED_ITS ---
HPI - General Adult General: Chief complaint: General Medical Stated complaint: feet numbness/turning purple on and off Time Seen by Provider: 12/10/21 20:16 History of Present Illness: Patient is a 41-year-old male comes to the ED with bilateral feet numbness. Patient says the symptoms have been going on for over a year. Symptoms of numbness and tingling in bottom of the feet bilaterally have progressed up into the ankle. He describes the symptoms in both feet progressing uniformly. Denies any pain in his feet or any injuries or traumas. Denies any pain in his feet. He endorses having some occasional bilateral mild feet swelling after being on his feet all day. Denies any calf pain, shortness of breath or chest pain. Denies history of diabetes or blood clots. Associated symptoms: Deny chest pain, dyspnea, headache(s), nausea, rash, palpitations or vomiting Review of Systems Const: Denies: fever(s), chills or fatigue Eyes: Denies: change in vision or eye discomfort ENMT: Denies: throat pain, odynophagia, nasal discharge or nasal congestion Card: Denies: chest pain, palpitations, edema, swelling of feet/ankles, dyspnea on exertion or orthopnea Resp: Denies: dyspnea, productive cough or non-productive cough GI: Denies: abdominal pain, nausea, vomiting, diarrhea, constipation or hematochezia : Denies: flank pain, difficulty urinating, dysuria or hematuria Musc: Denies: neck pain, back pain or extremity swelling Skin/Breast: Denies: rash or new lesions Neuro: Reports: sensory changes (Tingling/numbness in bilateral feet); Denies: headache(s), numbness in extremities or weakness in extremities PFSH ED PFSH: Medical History Chronic bursitis of right shoulder History of femoral angiogram Hyperlipidemia Surgical History H/O esophagogastroduodenoscopy (08/24/21) H/O hemorrhoidectomy History of colonoscopy with polypectomy (08/24/21) Family History Grandmother Hypertension Other Cancer Social History Smoking and tobacco status: former smoker (chew) Alcohol intake: current Household members: spouse and children Marital status: service: No Current occupational status: employed Current occupation: [employer] History of recent travel: No Physical Exam Const: COMMON NORMALS: no acute distress, patient oriented x3 and alert GENERAL APPEARANCE: cooperative HENMT: COMMON NORMALS: normocephalic HEAD & SCALP: normocephalic MOUTH: Normal oral and palatal mucosa present THROAT: posterior oropharynx normal and uvula midline Neck/C-Spine: COMMON NORMALS: supple GENERAL: Yes normal visual inspection Resp: COMMON NORMALS: normal respiratory effort, No retractions, No use of accessory muscles and clear to auscultation bilaterally AUSCULTATION: clear to auscultation bilaterally Cardio: COMMON NORMALS: regular rate, regular rhythm, S1 normal heart sound present, S2 normal heart sound present, No gallops present (Cardio), No clicks present (Cardio), No murmurs present (Cardio) and Peripheral pulses 2+ throughout RATE: regular rate RHYTHM: regular rhythm HEART SOUNDS: S1 normal heart sound present and S2 normal heart sound present PERIPHERAL PULSES: Peripheral pulses 2+ throughout GI: COMMON NORMALS: Normal to inspection, nondistended, normoactive bowel sounds present, Soft to palpation, non-tender and no masses PALPATION: Yes Soft to palpation : COMMON NORMALS: Yes no CVA tenderness BLADDER/KIDNEY EXAM: Yes no CVA tenderness Back/Pelvis: COMMON NORMALS: no CVA tenderness Extremity: COMMON NORMALS: normal to inspection, no calf tenderness and no pedal edema Neuro: COMMON NORMALS: patient oriented x3 SENSORIUM/ORIENTATION: Yes alert GAIT: Yes Normal gait present Skin: GENERAL SKIN EXAM: dry skin Course Vital Signs: Vital signs: Vital Signs Temperature 98.3 F 12/10/21 20:13 Pulse Rate 103 H 12/10/21 20:13 Respiratory Rate 16 12/10/21 20:13 Blood Pressure 132/76 12/10/21 20:13 Pulse Oximetry 95 12/10/21 20:13 Oxygen Delivery Me thod 12/10/21 20:13 [facility] - General Adult Medical Decision Making Patient is a 41-year-old male comes to the ED with tingling/numbness in bilateral feet that has been going on now for over a year. He says it started about his feet and then have uniformly progressed up his foot and it feels just below the ankle now. He does not report any pain in his feet currently. Denies any injury or trauma to cause symptoms. Denies any chest pain, shortness of breath or history of blood clots. Denies any calf tenderness. Vitals are stable. Patient appears in no acute distress or pain. He has no calf tenderness or leg edema bilaterally. Rest of exam is benign. Given patient's clinical presentation he likely has developing neuropathy of both his feet. Patient was stable for discharge home and told to follow-up with his PCP for further management of neuropathy. Return to ER cautions given. Patient understood and agreed with plan. Discharge Plan Discharge Patient Disposition: Home Clinical Impression: Neuropathy of both feet Condition: Stable Discharge Orders: Discharge ED (Routine); Ordered 12/10/21 Ordered By: Jesus Conteh Referrals: Fernando Webster MD [Primary Care Provider] - Discharge Diet: Regular Discharge Activity: Increase activity as tolerated Patient Instructions: Peripheral Neuropathy (ED) Activity Restrictions/Additional Instructions: Follow-up with your PCP within the next 7 to 10 days for reevaluation. Return to the ER or your medical provider if condition worsens. Please read and understand discharge instructions. Thank you for choosing [facility] for your healthcare needs today. Please realize this is an emergency room and that we are providing you with a medical screening exam and this may not be complete and all inclusive of all the testing and or work up that you may need to determine your ailment or severity of your illness. It is very important that you follow up as instructed or that you return to the Emergency Department should you have concerns or if your condition changes or worsens in any way. Stand Alone Forms: Work/School Release Coding Level of Care Code ED Steel Post Installer Supervisor for Ricky Fwd Exam Comprehensive
== END 2021-12-10 21:07 | disposition home or self-care (01) ==
PROVIDERS: Emergency Provider Physician Assistant; PCP Family Medicine Adult Medicine
DX: G62.9 Polyneuropathy, unspecified (principal); E78.5 Hyperlipidemia, unspecified; Z87.891 Personal history of nicotine dependence
CPT/HCPCS: 99282

== ENCOUNTER 2022-02-24 11:11 | Emergency (ER) | payer MEDICAID, SELFPAY ==
--- NOTE | 2022-02-24 11:16 | XR_ITS ---
WS: [id number] Exam: XR hand RT min 3V* [id number] Date/Time of Exam: 02/24/2022 11:16 AM Reason For Exam: Right hand injury No acute fracture or dislocation. Old fracture deformity of the fifth metacarpal. 1 x 3 mm metallic s oft tissue foreign body seen near the thumb metacarpal. XR/XR hand RT min 3V* [id number] IMPRESSION: 1. No acute fracture or dislocation. 2. Old fifth metacarpal fracture. 2. Small soft tissue foreign body seen near the thumb metacarpal. This appears to be a small wire fragment.
[2022-02-24 11:17] VITALS: BP 174/105; PULSE 76; RESP 16; TEMP 36.8; O2SAT 97; BMI 32.8
--- NOTE | 2022-02-24 11:45 | W.ED.EXTPRO ---
HPI - Extremity Problem General: Chief complaint: Extremity Injury, Upper Stated complaint: Right hand injury Time Seen by Provider: 02/24/22 11:35 Source: patient Mode of arrival: ambulatory Limitations: no limitations History of Present Illness: 41-year-old male presents to the ER today for right hand pain for the last several days. Patient reports no known injury. 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 Patient reports yesterday he had quite a bit of swelling over the outside of the right hand. Patient denies any bruising. Patient reports he has not take anything for pain at this time. Review of Systems General: Reports: 10 or more systems reviewed and unremarkable except in HPI and below PFSH ED PFSH: Medical History Family history of colon cancer History of femoral angiogram Hyperlipidemia Surgical History H/O esophagogastroduodenoscopy (08/24/21) H/O hemorrhoidectomy History of colonoscopy with polypectomy (08/24/21) Family History Grandmother No problems noted. Grandfather Cancer lung Hyperlipidemia Hypertension Stroke Family/Other Cancer Uncle[place] Mother Cancer small cell lung Family/Other Cancer Aunt-breast Denies family history of Diabetes CAD (coronary artery disease) Clotting disorder Dementia Chronic kidney disease (CKD) Anesthesia complication Bleeding disorder Lung disease Social History Smoking and tobacco status: current every day smoker (chewing tobacco) Alcohol intake: current Alcohol intake frequency: 0-2 Drinks per Day Alcohol type: beer Caregiver/support person: No Lives independently: Yes Household members: spouse and children Marital status: Highest education level completed: GED or Equivalent service: No Current occupational status: employed Current occupation: [employer] History of recent travel: No Current gender identity: Male Physical Exam Const: COMMON NORMALS: no acute distress, average body habitus, patient oriented x3, no limitations, healthy appearing, alert and well nourished HENMT: COMMON NORMALS: normocephalic, atraumatic and moist oral mucous membranes HEAD & SCALP: normocephalic and atraumatic Eye: COMMON NORMALS: conjunctivae normal CONJUNCTIVA: Yes conjunctivae normal Resp: COMMON NORMALS: normal respiratory effort EFFORT & INSPECTION: Yes able to speak in complete sentences Cardio: COMMON NORMALS: regular rate and regular rhythm RATE: regular rate RHYTHM: regular rhythm Extremity: NARRATIVE EXTREMITY EXAM: Patient has normal range of motion of the right hand and right fifth digit. Mild tenderness over the fifth metacarpal. No swelling or deformities noted. No bruising noted Neuro: COMMON NORMALS: patient oriented x3 SENSORIUM/ORIENTATION: Yes alert Psych: COMMON NORMALS: mental status grossly normal, Normal thought process present and cooperative THOUGHT PROCESS: Normal thought process present Skin: COMMON NORMALS: no rashes or lesions noted and no wounds GENERAL SKIN EXAM: no rashes or lesions noted Course ED course: Patient presents complaining of right hand pain for the last 2 to 3 days. A hand x-ray at this time. No reported injury. Vital Signs: Vital signs: Vital Signs Temperature 98.3 F 02/24/22 11:17 Pulse Rate 76 02/24/22 11:17 Respiratory Rate 16 02/24/22 11:17 Blood Pressure 174/105 02/24/22 11:17 Pulse Oximetry 97 02/24/22 11:17 Oxygen Delivery Me thod 02/24/22 11:17 MDM - Extremity (Nontraumatic) Medical Decision Making X-ray of the right hand shows no acute fracture however there is an old metacarpal fracture noted. Discussed with patient likely this could be a flareup/arthritis of that prior fracture. Recommended conservative treatment this time. Take ibuprofen as needed. Apply ice. Recommend rest as this may be an issue of overuse. Follow-up with PCP in 10 to 14 days if no improvement. Return to the ER for new or worsening symptoms. Patient verbalized understanding and was in agreement with the treatment plan. Lab Data Radiology Impressions Hand X-Ray 02/24/22 11:16 IMPRESSION: 1. No acute fracture or dislocation. 2. Old fifth metacarpal fracture. 2. Small soft tissue foreign body seen near the thumb metacarpal. This appears to be a small wire fragment. Critical Care Time Critical Care Time: Critical Care Time: No Discharge Plan Discharge Patient Disposition: Home Clinical Impression: Hand pain, right Condition: Stable Prescriptions: No Action gabapentin 300 mg capsule 300 mg PO BID Qty: 60 2RF Discharge Orders: Discharge ED (Routine); Ordered 02/24/22 Ordered By: Beth Hughes Referrals: Fernando Webster MD [Primary Care Provider] - Discharge Diet: Usual diet Discharge Activity: Increase activity as tolerated Patient Instructions: Opioid Safety, Pain Management Activity Restrictions/Additional Instructions: Apply ice to reduce pain and swelling. Take ibuprofen, 800 mg 4 times daily as needed for pain. Follow-up with PCP in 10 to 14 days if no improvement. Return to the ER with new or worsening symptoms. Stand Alone Forms: Work/School Release Coding Level of Care Code ED Internal Control Analyst for Ricky Verdin
== END 2022-02-24 11:52 | disposition home or self-care (01) ==
PROVIDERS: Emergency Provider Physician Assistant; PCP Family Medicine Adult Medicine
DX: M79.641 Pain in right hand (principal); F17.220 Nicotine dependence, chewing tobacco, uncomplicated; E78.5 Hyperlipidemia, unspecified
CPT/HCPCS: 73130; 99283

== ENCOUNTER → 2022-03-15 11:57 | Outpatient (BNVA) | payer MEDICAID, SELFPAY | PROVIDERS: PCP Family Medicine Adult Medicine; Visit Provider Family Medicine | DX: I10 Essential (primary) hypertension (principal); F31.9 Bipolar disorder, unspecified | CPT/HCPCS: 80048 ==

== ENCOUNTER → 2022-03-29 15:12 | Outpatient (BNVA) | payer MEDICAID, SELFPAY | PROVIDERS: PCP Family Medicine; Visit Provider Family Medicine | DX: E78.5 Hyperlipidemia, unspecified (principal); F31.9 Bipolar disorder, unspecified; F19.90 Other psychoactive substance use, unspecified, uncomplicated; E66.9 Obesity, unspecified | CPT/HCPCS: 80061 ==

== ENCOUNTER → 2022-05-18 11:22 | Outpatient (BNVA) | payer OTHER, MEDICAID, SELFPAY | PROVIDERS: PCP Family Medicine; Referring Provider Family Medicine; Visit Provider Anesthesiology Pain Medicine | DX: M54.50 Low back pain, unspecified (principal); G89.29 Other chronic pain | CPT/HCPCS: 72110 ==

== ENCOUNTER 2022-08-18 12:49 | Outpatient (CLI) | payer OTHER, MEDICAID, SELFPAY ==
--- NOTE | 2022-08-18 12:57 | MR_ITS ---
WS: [id number] MRI LUMBAR SPINE NONCONTRAST HISTORY: M54.50 - Low back pain, unspecified COMPARISON: 02/13/2019 TECHNIQUE: Sagittal and axial multisequence imaging is submitted. Very slight increase in lumbar lordosis. L5 anterolisthesis by 6.5 mm. No fractures or marrow edema. Mild curvature. Mild disc space narrowing and desiccation. Conus terminates normally at L1-2 disc level. L1-L2: Normal. L2-L3: Mild facet joint arthritis. No stenosis. L3-L4: Mild annular disc bulging with moderate ligamentum flavum and facet arthritis. Mild bilateral foraminal stenosis. L4-L5: Mild osteophytic ridging and annular disc bulging with facet arthropathy. Mild central stenosi s. Near complete effacement of fat in the LEFT foramen and mild on the RIGHT. Severe LEFT foraminal s tenosis and moderate RIGHT foraminal stenosis. L5-S1: Marked annular disc bulging encroaching upon the ventral thecal sac. Bilateral facet joint art hropathy, LEFT greater than RIGHT. Near complete effacement of fat in the LEFT foramen. Moderate to s evere LEFT and mild RIGHT foraminal stenosis. Similar findings were also noted on the prior MRI from 2019. Paravertebral soft tissues are normal. MR/MR lumbar spine wo con* [id number] IMPRESSION: 1. Grade 1 anterolisthesis of L5 by 6.5 mm. 2. Mild progression of degenerative facet arthropathy. 3. Severe LEFT and moderate RIGHT retinal stenosis at L4-5 with mild central s tenosis. 4. Moderate to severe LEFT and mild RIGHT foraminal stenosis at L5-S1. 5. Mild bilateral foraminal stenosis at L3-4.
== END 2022-08-18 12:50 | disposition home or self-care (01) ==
LOC: RAD 12:51
PROVIDERS: PCP Family Medicine; Visit Provider Anesthesiology Pain Medicine
DX: G89.29 Other chronic pain (principal); M48.061 Spinal stenosis, lumbar region without neurogenic claudication; M48.07 Spinal stenosis, lumbosacral region
CPT/HCPCS: 72148

== ENCOUNTER → 2022-09-21 08:11 | Outpatient (BNVA) | payer OTHER, MEDICAID, SELFPAY | PROVIDERS: PCP Family Medicine; Referring Provider Anesthesiology Pain Medicine; Visit Provider Physician Assistant | DX: M25.559 Pain in unspecified hip (principal) | CPT/HCPCS: 36415; 73502; 80053; 85025 ==

== ENCOUNTER 2022-10-11 14:58 | Observation (INO) | payer OTHER, MEDICAID, SELFPAY ==
[2022-10-04 09:33] VITALS: BMI 34.5
--- NOTE | 2022-10-04 17:14 | P.ANESASSM_ITS ---
Pre-Anesthetic Assessment Height/Weight: Height 1.8 m Weight 112.491 kg Operation Date: 10/11/22 09:40 Proposed Procedures p PLIF L4/5 l5/s1:12556,39842,88474,44628,10096 X 3 ,m47.816,m54.50,g89.29(Not Applicable) - Darrel Smalls DO Familial anesthetic complications: none Was Beta Rudi taken within 24 hours: N/A Was Clonidine taken within 24 hours: N/A Social Alcohol and Tobacco Exam alert, oriented x 3, clear to auscultation bilaterally and regular rate & rhythm Airway Submandibular: within normal limits Cervical ROM: within normal limits Mallampati: Class II Dentition: chipped Pulmonary Chronic Obstructive Pulmonary Disease and Sleep Apnea CV/HEM Hypertension Metabolic Hyperlipidemia and Morbid Obesity Musc/skel Lower Back Pain and Osteoarthritis/DJD Neuropsych Bipolar and Neuropathy Anesthetic Plan ASA status: 3 Anesthesia: General Medications/Allergies Home Medications Medication Instructions Recorded Confirmed Last Taken Type albuterol sulfate 90 mcg/actuation 1 inh inhalation QID PRN shortness 08/14/22 10/04/22 Unknown Rx aerosol inhaler of breath or wheezing #8.5 grams aripiprazole 20 mg tablet 20 mg PO DAILY #90 tabs 08/14/22 10/04/22 10/03/22 Rx atorvastatin 20 mg tablet 20 mg PO DAILY #90 tabs 08/14/22 10/04/22 10/04/22 Rx fluticasone propionate 50 2 spray intranasal DAILY #16 grams 08/14/22 10/04/22 Unknown Rx mcg/actuation nasal spray,suspension (Flonase Allergy Relief) losartan 100 mg tablet 100 mg PO DAILY #90 tabs 08/14/22 10/04/22 10/04/22 Rx Allergies Allergy/AdvReac Type Severity Reaction Status Date / Time No Known Allergies Allergy Verified 10/04/22 08:55 [facility] Anesthesia Medical History (Updated 10/04/22 @ 09:30 by Todd Lomeli NP) Bipolar disorder Essential hypertension Family history of colon cancer H/O viral illness History of femoral angiogram Hyperlipidemia MARILYNN (obstructive sleep apnea) intolerant of CPAP Peripheral neuropathy all extremities Tobacco dependence chews Surgical History H/O esophagogastroduodenoscopy (08/24/21) H/O hemorrhoidectomy History of colonoscopy with polypectomy (08/24/21) Family History Grandmother No problems noted. Grandfather Cancer lung Hyperlipidemia Hypertension Stroke Family/Other Cancer Uncle[place] Mother Cancer small cell lung Family/Other Cancer Aunt-breast Denies family history of Diabetes CAD (coronary artery disease) Clotting disorder Dementia Chronic kidney disease (CKD) Anesthesia complication Bleeding disorder Lung disease Social History Smoking and tobacco status: current every day smoker smokeless tobacco Smokeless tobacco user: chewing tobacco Second hand smoke exposure: No Alcohol intake: current Alcohol intake frequency: few times a week Alcohol type: beer Substance/Drug Use: never Desire information about substance/drug rehabilitation?: No Caregiver/support person: No Lives independently: Yes Household members: spouse and children Marital status: Highest education level completed: GED or Equivalent service: No Current occupational status: employed Current occupation: [employer] Do you think of yourself as: Straight/Heterosexual Current gender identity: Male Data Anesthesia Cardiac Studies: No Data to Display
[2022-10-11] VITALS (31 sets, daily range): BP systolic 84–148; BP diastolic 35–93; PULSE 76–115; RESP 12–20; TEMP 36.4–36.9; O2SAT 91–99
--- NOTE | 2022-10-11 | XR_ITS ---
WS: [id number] INTRAOPERATIVE TECHNIQUE: 3 Spot fluoroscopic images for intraoperative purposes. FLUOROSCOPY TIME: 21 seconds CLINICAL INFORMATION: L4-S1 fusion COMPARISON: None. FINDINGS: Intraoperative fluoroscopy used for pedicle screw fixation L4-S1 with interbody fusion grafts XR/XR lumbar spine 2-3V* [id number] IMPRESSION: Images obtained for intraoperative purposes.
[2022-10-11] MEDS: sodium chloride 0.9% 1,000 ML 30 ML IV (08:50)
[2022-10-11] MEDS: HYDROmorphone 1 mg/mL INJ 1 mL 0.5 MG IVP (09:08)
--- NOTE | 2022-10-11 09:32 | P.ANESUD_ITS ---
Pre-Anesthetic Update Pre-Anesthetic Assessment: Date of Surgery/Procedure: 10/11/22 Preop Madelaine gnosis: Lumbar facet arthritis, DDD lumbar spine, lumbar stenosis Proposed Procedure: Operation Date: 10/11/22 10:10 Proposed Procedures p PLIF L4/5 l5/s1:87232,95424,37788,76394,49611 X 3 ,m47.816,m54.50,g89.29(Not Applicable) - Darrel Smalls, DO Any changes to Pre-Anesthetic Assessment?: No Last Intake: Intake Last Liquid Date 10/10/22 Last Liquid Time 22:00 Last Solid Date 10/10/22 Last Solid Time 22:00 Vitals: Temperature 97.7 F 10/11/22 08:17 Temperature Source Temporal Artery S can 10/11/22 08:17 Pulse Rate 76 10/11/22 08:17 Respiratory Rate 18 10/11/22 09:08 Respiratory Effort Spontaneous, Non- Labored 10/11/22 09:08 Respiratory Depth Normal 10/11/22 09:08 Respiratory Patter n Normal 10/11/22 09:08 Blood Pressure 139/93 10/11/22 08:17 Blood Pressure Raquel n 108 10/11/22 08:17 Pulse Oximetry 96 10/11/22 09:08 Oxygen Delivery Me thod Room Air 10/11/22 08:29 Exam: Pre-Anes Outpt Exam: alert, oriented x 3, clear to auscultation bilaterally and regular rate & rhythm Cardiac Studies: No Data to Display
--- NOTE | 2022-10-11 10:00 | W.PM.OPSUD ---
Surgery/Procedure H&P Update DATE OF PROCEDURE: October 11, 2022 DATE H&P PERFORMED: 10/04/22 H&P UPDATE INFORMATION: I have reviewed H&P completed within last 30 days, I have examined patient prior to procedure and No changes to prior documentation PREOP DIAGNOSIS: Lumbar facet arthritis, DDD lumbar spine, lumbar stenosis PLANNED PROCEDURE: Operation Date: 10/11/22 10:10 Proposed Procedures p PLIF L4/5 l5/s1:53055,24676,12117,52646,25342 X 3 ,m47.816,m54.50,g89.29(Not Applicable) - Darrel Smalls, DO
[2022-10-11] MEDS: ceFAZolin 2,000 MG in sodium chloride 0.9% (plus) 50 ML 100 MG IV ×2 (10:35→17:33)
[2022-10-11] MEDS: heparin, porcine 1,000 unit/mL INJ 10 mL 10000 UNIT IRRIGATION (11:08)
[2022-10-11] MEDS: lidocaine-epi 2% 20 mL INJ INJECTION (11:08)
[2022-10-11] MEDS: vancomycin 1,000 MG SDV 1000 MG XX (12:12)
--- NOTE | 2022-10-11 14:08 | P.OP_ITS ---
Operative Report Date of procedure: October 11, 2022 Pre-op diagnosis: Preop Diagnosis Lumbar facet arthritis, DDD lumbar spine, lumbar stenosis with neurogenic claudication Post-op diagnosis: same Procedure done: 1. L4/5 Interbody fusion with posterolateral fusion 2. L5/S1 Interbody fusion with posterolateral fusion 3. Instrumentation L4-S1 posterior 4. Cage at L4/5 5. Cage at L5/S1 6. L4/5 laminectomy with facetectomies 7. L5/S1 laminectomy with facetectomies 8. use of autograft from same incision 9. allograft 10. Bone marrow aspirate from right iliac crest 11. Use of computer navigation /stereotactic for spine Surgeon: Darrel Smalls Credit Review Officer: Papi Ramesh Credit Review Officer: The surgical elastic knitter, Papi Ramesh, PAC was needed for his expertise under th e microscope. He was important and necessary throughout the procedure to complete in a safe and timely manner. He assisted with patient positioning prepping and draping tissue retraction suctioning of the operative field protection of the dural sac and tissue closure Estimated blood loss (mL): 900 Procedure: 1. L4/5 Interbody fusion with posterolateral fusion 2. L5/S1 Interbody fusion with posterolateral fusion 3. Instrumentation L4-S1 posterior 4. Cage at L4/5 5. Cage at L5/S1 6. L4/5 laminectomy with facetectomies 7. L5/S1 laminectomy with facetectomies 8. use of autograft from same incision 9. allograft 10. Bone marrow aspirate from right iliac crest 11. Use of computer navigation /stereotactic for spine Patient is brought to the operative suite. After undergoing anesthesia, the patient had neuro monitoring attached. Patient was then placed in the prone position on the Ben table. All areas of impingement were well-padded. Patient was then prepped and draped in the normal sterile fashion. Skin incision was then made over the LL4-S1 level. Subperiosteal dissection was made out to the transverse processes of L4 and L5 and sacral ala bilaterally. Next attention was brought to getting bone marrow aspirate. This was done by using the sharp probe to open up the bone right iliac crest. Aspiration was performed and then the blunt probe was then used to dissect down to through the bone tunnel. An aspirating well drawn back a millimeter approximately 20 cc of bone marrow aspirate was used. Admixed with the allograft and autograft bone that will be used. Next tension was brought to placing the 2 pins for the fiducial. Fiducial attached these 2 pins and then C-arm was brought in information from the serum was loaded in the computer in order to allow for use of computer navigation the fiducial was for computer navigation. The 2 pins were later removed at the end of the case. The technique for placing the pedicle screws was to use a drill followed by the gearshift probe linked to computer navigation. Followed by the ball probe to feel the superior inferior medial lateral malone of the pedicles. Then placement of the screws linked to computer navigation. Was done at each pedicle. Screws were placed at L4 bilaterally and L5 bilaterally and S1 bilaterally. Next attention was brought to performing the laminectomy ofL4. This was done using the high-speed bur Kerrisons and curettes. Once the lamina was removed and then attention was brought to performing a partial facetectomy on the contralateral side. This was done again using the high-speed bur curettes and Kerrisons. The ligamentum flavum was taken down bilaterally from L4 to L5. Attention was then brought to the facet on the ipsilateral side. The facet was taken down. The L4/5 nerve was decompressed as it passed around the L5 pedicle. The laminectomy was done for purposes of decompressing the nerve as well as placement of the cage. The L5 nerve was identified as it traversed through the L4/5 foramen. The thecal sac was identified and retracted. The L4/5 disc base was identified. Using a knife the disc base was opened. And then sequential wil were placed. The first shaver was a 6 and the last shaver was a 9. Using a pituitary and down going curette the endplates were scraped and disc material was removed from the space. Once adequate decompression of the disc base was felt to be had. Osteoamp sponge was packed into the anterior aspect of the disc base. Then a size 10 cage from [place] was placed after packing osteoamp into the cage. While placing the cage the thecal sac and L5 nerve was protected. C arm was used to ensure that the cages placed in the appropriate position. Next attention was brought to performing the laminectomy ofL5. This was done using the high-speed bur Kerrisons and curettes. Once the lamina was removed and then attention was brought to performing a partial facetectomy on the contralateral side. This was done again using the high-speed bur curettes and Kerrisons. The ligamentum flavum was taken down bilaterally from L5 to S1. Attention was then brought to the facet on the ipsilateral side. The facet was taken down. The S1 nerve was decompressed as it passed around the S1 pedicle. The laminectomy was done for purposes of decompressing the nerve as well as placement of the cage. The L5 nerve was identified as it traversed through the L5/S1 foramen. The thecal sac was identified and retracted. The L5/S1 disc base was identified. Using a knife the disc base was opened. And then sequential wil were placed. The first shaver was a 6 and the last shaver was a 7. Using a pituitary and down going curette the endplates were scraped and disc material was removed from the space. Once adequate decompression of the disc base was felt to be had. Osteoamp sponge was packed into the anterior aspect of the disc base. Then a size 8 cage from [place] was placed after packing osteoamp into the cage. While placing the cage the thecal sac and s1 nerve was protected. C arm was used to ensure that the cages placed in the a ppropriate position. Attention was then brought to attaching the rods to the screws placed in the L4 bilaterally, L5 bilaterally and S1 bilaterally. Caps were torqued into position. Locking the construct in place. Wound was copiously irrigated and then attention was brought to decorticating the facets and transverse processes laterally. Bone that was taken down from the lamina was used along with osteoamp fibers and sponges were packed into the lateral gutters along the facet joints. This was done bilaterally. Wound was then closed in a layered fashion starting with the thoracolumbar fasc ia. 0-vicryl was used the sub cutaneous tissue was closed with 2-0 vicryl and skin with 4-0 monocryl. Glue was then used to seal the skin and a steril dressing was applied. Patient was then placed in the supine position. The endotracheal tube was removed and patient was transferred to the PACU in stable condition.
--- NOTE | 2022-10-11 15:27 | PC.NURSE ---
BP SOFT DURING POST OP. dR. Herrera MONITORING. fLUIDS AND ALBUMIN GIVEN. bp STABLE
--- NOTE | 2022-10-11 15:53 | PC.NURSE ---
Arrived from OR, AO follows commands no c/o at this time
[2022-10-11] MEDS: lactated ringers 1,000 ML 90 ML IV (16:05)
[2022-10-11] MEDS: ketorolac 30 mg/mL INJ IVP ×2 (16:07→22:24)
--- NOTE | 2022-10-11 16:21 | ANE.PACU2 ---
Inpatient post-anesthesia follow up: Airway intact: Yes Vital signs: Temperature 97.8 F Pulse Rate 107 Respiratory Rate 18 Blood Pressure 114/68 Pulse Oximetry 93 Oxygen Delivery Me thod Room Air Oxygen Flow Rate 2 Fraction of Inspir ed Oxygen Hydration adequate: Yes Nausea and vomiting: No Pain level: 2 Mental status: Baseline
[2022-10-12] VITALS (12 sets, daily range): BP systolic 104–133; BP diastolic 58–79; PULSE 87–108; RESP 14–21; TEMP 36.4–37.1; O2SAT 92–98
[2022-10-12] MEDS: ceFAZolin 2,000 MG in sodium chloride 0.9% (plus) 50 ML 100 MG IV ×2 (02:25→10:16)
[2022-10-12] MEDS: morphine 4 mg/mL SDV 1 mL 2 MG IVP ×4 (02:25→20:58)
[2022-10-12] MEDS: lactated ringers 1,000 ML 90 ML IV ×2 (03:53→17:27)
--- NOTE | 2022-10-12 06:58 | PM.PN ---
Subjective Subjective: POD 1 Patient resting comfortably. States he has mild back pain legs feel much better. He denies any shortness of breath, chest pain, headaches. Vitals/I&O/Wt Last Vital Signs Temp 97.6 F 10/12/22 04:38 Pulse 108 H 10/12/22 04:38 Resp 16 10/12/22 04:38 BP 104/59 10/12/22 04:38 Pulse Ox 96 10/12/22 04:38 O2 Del Method Room Air 10/11/22 21:00 O2 Flow Rate 0 10/11/22 20:00 10/11/22 10/11/22 10/12/22 14:59 22:59 06:59 Intake Total 2175 / 2175 1920 / 4095 1350 / 5445 Output Total 1000 / 1000 1410 / 2410 250 / 2660 Balance 1175 / 1175 510 / 1685 1100 / 2785 Physical Exam Narrative: Patient presents alert and oriented x3 with a good general appearance normal mood and affect. Normal coordination normal stability. Mild tenderness around the incisional site with the incision appear to be clean and dry. Hemovac drain intact with 500 mL output. No signs of erythema or drainage. No signs of infection. Patient denies any fevers or chills. 5/5 motor strength both lower extremities with negative straight leg raise bilaterally. Calves are supple no medial thigh tenderness. Pulses are 2+ at the dorsalis pedis and posterior tibial region. Good capillary refill throughout normal sensation light touch both lower extremities. Urinary Catheter Management: Freed: Cath Placed During This Visit: yes Reason for Continuing Indwelling Catheter: Accurate Measurement of Urinary Output in Critically Ill Patients Urinary Catheter Date of Insertion: 10/11/22 Urinary Catheter Time of Insertion: 10:40 A&P Assessment and plan (1) Status post lumbar spinal fusion: Encouraged mobilization with physical therapy. Discontinue Freed catheter. We will leave the Hemovac drain due to his 500 mL output. We will order an H&H now. Encourage incentive spirometry for pulmonary toilet. High risk of bleeding therefore SCDs for DVT prophylaxis. Hopeful discharge home tomorrow. Attestations Medical Necessity Statement*: Hopeful discharge home tomorrow Coding Level of Care Code Acute Code for Chg Fwd Diagnoses Status post lumbar spinal fusion Z98.1
[2022-10-12] MEDS: ketorolac 30 mg/mL INJ IVP ×2 (07:22→21:24)
[2022-10-12 08:04] LABS: Hematocrit 31.9 % (42.0-52.0); Hemoglobin 9.8 g/dL (11.7-16.6)
[2022-10-12] MEDS: docusate sodium 100 mg Capsule PO ×2 (08:15→17:27)
[2022-10-12] MEDS: atorvastatin 40 mg Tablet 20 MG PO (08:15)
[2022-10-12] MEDS: ARIPiprazole 10 mg Tablet 20 MG PO (08:16)
[2022-10-12] MEDS: ondansetron 2 mg/ML SDV 2 mL 4 MG IVP ×3 (10:14→22:55)
--- NOTE | 2022-10-12 11:09 | PC.CHAP ---
Pastoral Care Encounter/Spiritual Assessment Type of Contact [] Declined foreign student adviser teacher visit [] Patient/Family/Request visit [] Outpatient visit [x] Follow-up visit [] Physician referral [] Code/Alert [] Routine visit [] Staff referral [] Actively dying [] Patient sleeping [] Family support [] [] Out of room [] Palliative care [] [] Receiving care in room [] Pre-surgical visit [] Trauma [] Long length of stay [] ICU visit [] Other: Relational/Emotional Strength [] Patient feels connected with others/family/visitors/staff [] Distress [] Loneliness/isolation [] Abandonment Spirituality of Patient [] Person of Jill [] Attends Gnosticist of their Jill [] Believes in Prayer [] Reads Bible or Sikh materials [] There are Spiritual issues to be addressed Shuttle Route Vehicle Operator Interventions [] Prayer [] Active listening [] Non-anxious presence [] Spiritual/emotional support [] Crisis/trauma care [] Spiritual counseling [] Bereavement support [] Provided bereavement packet [] Provided Bible/devotional materials [] Provided toy/stuffed animal, coloring book to patient or family member [] Provided Communion [] Anointing/[place] [] Salvation [] Completed spiritual assessment [] Other: Impact on Illness or Injury [] Angry [] Fearful [] Anxious [] Often cries [] Exhaustion [] Unable to work [] Unable to attend amish [] Unable to walk/stand [] Unable to read [] Unable to drive [] Unable to eat/drink [] Unable to sleep [] Unable to be with family [] Patient intubated [] Other: Summary Follow-up visit Time spent with patient 5 mins
--- NOTE | 2022-10-12 11:49 | PC.NURSE ---
Report given to JOYCE Salvador.
[2022-10-12] MEDS: cyclobenzaprine 10 mg Tablet PO (21:45)
[2022-10-12] MEDS: HYDROcodone-acetaminophen 5-325 mg Tablet PO (22:53)
[2022-10-13] MEDS: cyclobenzaprine 10 mg Tablet PO (04:07)
[2022-10-13] MEDS: HYDROcodone-acetaminophen 5-325 mg Tablet PO ×2 (04:07→09:29)
[2022-10-13] MEDS: lactated ringers 1,000 ML 90 ML IV (04:13)
[2022-10-13 04:47] VITALS: BP 120/76; PULSE 100; RESP 18; TEMP 36.6; O2SAT 95
--- NOTE | 2022-10-13 06:59 | PM.DCS ---
Discharge Providers Date of Admission: 10/11/22 14:58 Date of Discharge: October 13, 2022 Attending Provider at Admission: Darrel Smalls DO Attending Provider at Discharge: Darrel Smalls DO Primary Care Provider: Nicolas Braun MD Diagnoses at Discharge Discharge Diagnosis (1) Status post lumbar spinal fusion: Status: Acute Reason for Visit Reason for Visit: M47.816, M54.50, G89.29 Physical Exam Narrative: leg pain improved Urinary Catheter Management: Freed: Cath Placed During This Visit: yes, but has since been removed by the nurse Reason for Continuing Indwelling Catheter: Decision to DC Catheter Urinary Catheter Date of Insertion: 10/11/22 Urinary Catheter Time of Insertion: 10:40 Date Urinary Catheter Removed: 10/12/22 Time Urinary Catheter Discontinued: 10:30 Discharge Data Studies Completed and Pending Completed Studies During Hospitalization Category Date Time Status XR lumbar spine 2-3V* [id number] Routine Exams 10/11/22 Completed Radiology Impressions Lumbar Spine X-Ray 10/11/22 00:00 IMPRESSION: Images obtained for intraoperative purposes. Laboratory Results Hgb 9.8 g/dL (11.7-16.6) L 10/12/22 07:20 Hct 31.9 % (42.0-52.0) L 10/12/22 07:20 Blood Type O Positive 10/11/22 08:42 Rho(D) Type Positive 10/11/22 08:42 Antibody Screen Negative 10/11/22 08:42 Vitals Last Vital Signs Temp 98 F 10/13/22 04:47 Pulse 100 10/13/22 04:47 Resp 18 10/13/22 04:47 BP 120/76 10/13/22 04:47 Pulse Ox 95 10/13/22 04:47 O2 Del Method Room Air 10/13/22 04:47 O2 Flow Rate 0 10/11/22 20:00 Discharge Plan Discharge Patient Disposition: Home Condition: Stable Prescriptions: New hydrocodone-acetaminophen 5-325 mg tablet 1 - 2 tab PO .Q4-6H Qty: 40 0RF Continued aripiprazole 20 mg tablet 20 mg PO DAILY Qty: 90 1RF atorvastatin 20 mg tablet 20 mg PO DAILY Qty: 90 1RF losartan 100 mg tablet 100 mg PO DAILY Qty: 90 0RF fluticasone propionate [Flonase Allergy Relief] 50 mcg/actuation spray,suspension 2 spray intranasal DAILY Qty: 16 3RF Rx Instructions: administer into each nostril albuterol sulfate 90 mcg/actuation HFA aerosol inhaler 1 inh inhalation QID PRN (Reason: shortness of breath or wheezing) Qty: 8.5 1RF (DME) Intraoperative Neurophysiological Testing See Rx Instructions .Route .MEDSUPPLY Qty: 1 0RF Rx Instructions: As directed Discharge Orders: Discharge Order (Routine); Ordered 10/13/22 Ordered By: Darrel Smalls Discharge Diet: Advance as tolerated Discharge Activity: Limit activity as instructed Patient Instructions: Opioid Safety Activity Restrictions/Additional Instructions: Thank you for choosing [facility] for your care! The following is a list of instructions, from your provider, to follow upon your discharge to ensure you have the optimal recovery from your recent injury or surgery. Follow-up care is a oropeza part of your treatment and safety. Be sure to make and go to all appointments and call your doctor if you are having problems. If you do not already have a follow-up appointment made, call Dr. Smalls's] office in the next 1-3 days to make follow up appointment for [1-2] weeks at [phone]. It is also a good idea to know your test results and keep a list of the medicines you take. Medications will be prescribed for you at your provider's discretion. These medications are to be used as instructed; if they are taken more often that prescribed they will not be refilled early and in most cases will not be refilled at all. > When a refill is needed, you should contact [facility] 2-3 business days before your prescription runs out. Medications will NOT be refilled by configuration management advisor providers after hours! > Many pain medications contain Tylenol (Acetaminophen). Do not consume more than 4,000 mg of Tylenol per day in total with any combination of medications. > Pain medications can cause constipation. Please use an over the counter stool softener as directed, while taking pain medications. Consult your local pharmacist with questions or recommendations on stool softeners. If constipation persists, contact our office or your primary care provider. > While under our care, you are not to receive pain medications or other controlled substances from any other provider unless our office is notified and approves. Any attempts to do so will result in refusal to prescribe any further pain medications and possible dismissal from our practice. ? Walking is essential for the healing process after surgery. We would like you to slowly advance your walking. This should be done on relatively flat clear ground (inside or out) or can be done on a treadmill. Remember this goal does not have to happen all at once, slowly increase your distance and duration. This can be broken into more more than one walk per day as tolerated. Patients who walk as directed after surgery rarely require Physical Therapy. In the unlikely event this issue arises your provider will direct hospital staff to make the appropriate arrangements. ? No lifting over 5 pounds {a gallon of milk) or bending/twisting until further notice. Each of these activities places an unnecessary amount of stress onto the body and can impede the delicate healing process. > Instead of bending at the waist, keep your back straight and bend at the knees. > Instead of twisting your torso, keep your back straight and turn your entire body with your feet. ? You may sleep in any position which makes you comfortable. Many patients find comfort sleeping in a reclining chair. It is not abnormal to have difficulty sleeping for the first several weeks following your surgery. We recommend trying Benadry! or Tylenol PM as directed to help with your sleeping difficulties. Both medications are over the counter and available without prescription. ? NO SMOKING!!! Smoking dramatically increases the probability of developing postoperative wound infections. ? Common complaints after lumbar and/or thoracic spine surgery include, but are not limited to: numbness and/or tingling in the legs, pain around the incision and surrounding tissues, muscle spasms, or stiffness of the middle to low back. Contact our office if these symptoms persist or if an acute change occurs. ? No driving for the first 3-5days, and not while taking narcotics until seen at your follow-up appointment and cleared. There are no restrictions for riding on short trips, however if you take a longer trip, arrangements should be made to make regular stops to get out of the vehicle and stretch . ? Swelling is an unfortunate event that will take place with any surgery and is the primary source of your postoperative discomfort. While walking and regular approved activities helps control inflammation, there are additional steps you can take to minimize swelling. > Place ice over the surgical site and surrounding tissue for twenty minutes, followed by applying a low/medium heat (heating pad) for an additional twenty minutes every 1-2 hours as needed for painrelief. > You may use of over the counter anti-inflammatory medications (Ibuprofen, Motrin, Aleve, Advil, etc) as directed on the package label. These types of medicines will significantly reduce the amount of discomfort you experience after surgery from swelling. It should be noted that if you have and allergy to any of these medications, or a history of ulcers or kidney disease you should consult you primary care provider prior to starting these medications. Discharge Attestations Time Spent in Discharge Care*: less than 30 min Quality Metrics Clinical Quality Measures [ No reported AMI, CVA or VTE this stay] Coding Level of Care Code Acute Code for Chg Fwd Diagnoses Status post lumbar spinal fusion Z98.1
[2022-10-13 07:02] VITALS: PULSE 69; RESP 16; O2SAT 97
[2022-10-13 08:11] VITALS: BP 139/86; PULSE 97; RESP 18; TEMP 36.7; O2SAT 96
[2022-10-13 09:28] VITALS: BP 139/86
[2022-10-13] MEDS: ARIPiprazole 10 mg Tablet 20 MG PO (09:28)
[2022-10-13] MEDS: atorvastatin 40 mg Tablet 20 MG PO (09:28)
[2022-10-13] MEDS: losartan 50 mg Tablet 100 MG PO (09:28)
[2022-10-13] MEDS: ondansetron 2 mg/ML SDV 2 mL 4 MG IVP (09:28)
[2022-10-13] MEDS: docusate sodium 100 mg Capsule PO (09:28)
--- NOTE | 2022-10-13 10:20 | PC.CHAP ---
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 [] Patient/Family/Request visit [] Outpatient visit [] Follow-up visit [] Physician referral [] Code/Alert [x] Routine visit [] Staff referral [] Actively dying [] Patient sleeping [] Family support [] [] Out of room [] Palliative care [] [] Receiving care in room [] Pre-surgical visit [] Trauma [] Long length of stay [] ICU visit [] Other: Relational/Emotional Strength [] Patient feels connected with others/family/visitors/staff [] Distress [] Loneliness/isolation [] Abandonment Spirituality of Patient [] Person of Jill [] Attends Faith of their Jill [] Believes in Prayer [] Reads Bible or Jewish materials [] There are Spiritual issues to be addressed Data Entry Interventions [] Prayer [] Active listening [] Non-anxious presence [] Spiritual/emotional support [] Crisis/trauma care [] Spiritual counseling [] Bereavement support [] Provided bereavement packet [] Provided Bible/devotional materials [] Provided toy/stuffed animal, coloring book to patient or family member x [] Provided Communion [] Anointing/[place] [] Salvation [] Completed spiritual assessment [] Other: Impact on Illness or Injury [] Angry [] Fearful [] Anxious [] Often cries [] Exhaustion [] Unable to work [] Unable to attend rastafarian [] Unable to walk/stand [] Unable to read [] Unable to drive [] Unable to eat/drink [] Unable to sleep [] Unable to be with family [] Patient intubated [] Other: Summary Time spent with patient 5 min
[2022-10-13 10:21] VITALS: BP 139/86
== END 2022-10-13 10:22 | disposition home or self-care (01) ==
LOC: MEDSURG 15:02
PROVIDERS: Physician Assistant; Admitting Provider Orthopaedic Surgery; PCP Family Medicine; Visit Provider Orthopaedic Surgery
PROC: (CPT 22612; principal; 2022-10-11 10:00)
DX: M47.816 Spondylosis without myelopathy or radiculopathy, lumbar region (principal); M51.36 Other intervertebral disc degeneration, lumbar region; M48.062 Spinal stenosis, lumbar region with neurogenic claudication; J44.9 Chronic obstructive pulmonary disease, unspecified; G47.30 Sleep apnea, unspecified; I10 Essential (primary) hypertension; E78.5 Hyperlipidemia, unspecified; E66.01 Morbid (severe) obesity due to excess calories; Z68.34 Body mass index [BMI] 34.0-34.9, adult; G62.9 Polyneuropathy, unspecified; F31.9 Bipolar disorder, unspecified; F17.290 Nicotine dependence, other tobacco product, uncomplicated
CPT/HCPCS: 20930; 20936; 20939; 22633; 22634; 22842; 22853 ×2; 61783; 63052; 63053; 36415; 51702; 72100; 76000; 85014; 85018; 86850; 86900; 97161; 97530; C1713; C9359; G0378; J0690; J1100; J1170; J1644; J1885; J2270; J2370; J2405; J2704; J2710; J3010; J3370; J3490; J7030; J7120; P9045

== ENCOUNTER 2022-10-15 13:58 | Emergency (ER) | payer OTHER, MEDICAID, SELFPAY ==
[2022-10-15 14:28] VITALS: BP 133/83; PULSE 107; RESP 20; TEMP 38.1; O2SAT 97; BMI 34.5
[2022-10-15 16:00] VITALS: PULSE 85; RESP 16; O2SAT 95
--- NOTE | 2022-10-15 16:03 | ED_ITS ---
HPI - Extremity Problem General: Chief complaint: Extremity Problem,Nontraumatic Stated complaint: sent by lt tatiana leg pain Time Seen by Provider: 10/15/22 15:39 Source: patient Mode of arrival: ambulatory History of Present Illness: 41-year-old male presents emergency room complaining of left leg pain. He had increasing left leg pain for the last couple of days 3 days ago he had an extensive back surgery with fixation. He has not had any fever sweats or chills chest pain or shortness of breath at home. He did have a low-grade fever when he first got it 100.5 rechecked when he got back to room it was down to 99 5. No swelling in his lower extremities. He was having left leg radicular pain prior to surgery but he reports this is worse. MD Complaint: extremity pain Onset (ago): day(s) Pain Consistency: constant Location: left and lower extremity Quality: sharp Radiation: distal Relieving factors: nothing Exacerbating factors: nothing Associated symptoms: Deny arthralgias, chest pain, fever(s) (Had not felt a fever at home but did have temperature when he arrived here), myalgias, rash or short of breath Review of Systems Const: Denies: fever(s) (Had not felt a fever at home but did have temperature when he arrived here) Card: Denies: chest pain Skin/Breast: Denies: rash FOR[facility]LY [facility], [facility] ED PFSH: Medical History (Updated 10/15/22 @ 16:58 by Edd Espinoza DO) Bipolar disorder Essential hypertension Family history of colon cancer H/O viral illness History of femoral angiogram Hyperlipidemia MARILYNN (obstructive sleep apnea) intolerant of CPAP Peripheral neuropathy all extremities Tobacco dependence chews Surgical History (Updated 10/12/22 @ 06:59 by Papi Ramesh PA-C) H/O esophagogastroduodenoscopy (08/24/21) H/O hemorrhoidectomy History of colonoscopy with polypectomy (08/24/21) Family History Grandmother No problems noted. Grandfather Cancer lung Hyperlipidemia Hypertension Stroke Family/Other Cancer Uncle[place] Mother Cancer small cell lung Family/Other Cancer Aunt-breast Denies family history of Diabetes CAD (coronary artery disease) Clotting disorder Dementia Chronic kidney disease (CKD) Anesthesia complication Bleeding disorder Lung disease Social History Smoking and tobacco status: current every day smoker smokeless tobacco Smokeless tobacco user: chewing tobacco Second hand smoke exposure: No Alcohol intake: current Alcohol intake frequency: few times a week Alcohol type: beer Substance/Drug Use: never Desire information about substance/drug rehabilitation?: No Caregiver/support person: No Lives independently: Yes Household members: spouse and children Marital status: Highest education level completed: GED or Equivalent service: No Current occupational status: employed Current occupation: [employer] Do you think of yourself as: Straight/Heterosexual Current gender identity: Male Course Vital Signs: Vital signs: Vital Signs Temperature 99.5 F 10/15/22 16:13 Pulse Rate 85 10/15/22 16:00 Respiratory Rate 16 10/15/22 16:37 Blood Pressure 133/83 10/15/22 14:28 Pulse Oximetry 98 10/15/22 16:37 Oxygen Delivery Me thod Room Air 10/15/22 14:28 MDM - Extremity (Nontraumatic) Medical Decision Making Patient did a little low-grade fever but improved spontaneously and is here with the medications given in the ER he is feeling much better on exam there is no sign of DVT I think he has a postlaminectomy syndrome. We will discharge him home with tizanidine and a steroid taper to begin tomorrow continue using previous prescribed pain medications and follow instructions given by Dr. Smalls postop contacted Dr. Smalls's office if not improving. Medical Records I reviewed the patient's medical records. Lab Data I reviewed the patient's lab results. 10/15/22 15:55 10/15/22 15:55 Laboratory Results WBC 8.0 10^3/uL (4.0-10.0) 10/15/22 15:55 RBC 3.43 10^6/uL (4.1-5.3) L 10/15/22 15:55 Hgb 10.0 g/dL (11.7-16.6) L 10/15/22 15:55 Hct 30.9 % (42.0-52.0) L 10/15/22 15:55 MCV 90.1 fl (80-94) 10/15/22 15:55 MCH 29.2 pg (28.0-34.0) 10/15/22 15:55 MCHC 32.4 g/dL (30.0-36.0) 10/15/22 15:55 RDW 12.1 % (12.1-15.1) 10/15/22 15:55 Plt Count 213 10^3/cmm (130-400) 10/15/22 15:55 MPV 9.8 fL (7.4-10.4) 10/15/22 15:55 Neut % (Auto) 75.7 % 10/15/22 15:55 Lymph % (Auto) 11.2 % 10/15/22 15:55 [place] % (Auto) 10.6 % 10/15/22 15:55 Eos % (Auto) 1.5 % 10/15/22 15:55 Baso % (Auto) 0.5 % 10/15/22 15:55 Neut # (Auto) 6.06 10^3/uL (1.8-7.7) 10/15/22 15:55 Lymph # (Auto) 0.9 10^3/uL (0.8-4.8) 10/15/22 15:55 [place] # (Auto) 0.9 10^3/uL (0.2-0.9) 10/15/22 15:55 Eos # (Auto) 0.1 10^3/uL (0.0-0.8) 10/15/22 15:55 Baso # (Auto) 0.0 10^3/uL (0.0-0.1) 10/15/22 15:55 Nucleated RBC % (auto) 0 % 10/15/22 15:55 Nucleated RBCs # 0.0 /100WBC 10/15/22 15:55 Sodium 139 mmol/L (136-145) 10/15/22 15:55 Potassium 4.1 mmol/L (3.5-5.1) 10/15/22 15:55 Chloride 101 mmol/L (98-107) 10/15/22 15:55 Carbon Dioxide 30 mmol/L (22-29) H 10/15/22 15:55 Anion Gap 12.1 (5-19) 10/15/22 15:55 BUN 11 mg/dL (6-20) 10/15/22 15:55 Creatinine 1.1 mg/dL (0.7-1.2) 10/15/22 15:55 GFR Calculation 73.1 mL/min (90-130) L 10/15/22 15:55 Glucose 106 mg/dL (65-115) 10/15/22 15:55 Calculated Osmolality 288 mOsm/kg (285-295) 10/15/22 15:55 Calcium 8.8 mg/dL (8.5-10.5) 10/15/22 15:55 Total Bilirubin 0.4 mg/dL (0.15-1.2) 10/15/22 15:55 AST 37 U/L (0-40) 10/15/22 15:55 ALT 24 U/L (0-41) 10/15/22 15:55 Alkaline Phosphatase 66 U/L (40-130) 10/15/22 15:55 Total Protein 6.6 g/dL (6.6-8.7) 10/15/22 15:55 Albumin 4.0 g/dL (3.5-5.2) 10/15/22 15:55 Globulin 2.6 g/dL (1.3-4.6) 10/15/22 15:55 Discharge Plan Discharge Patient Disposition: Home Clinical Impression: Post-laminectomy syndrome Condition: Stable Prescriptions: New tizanidine 4 mg tablet 4 mg PO Q6H PRN (Reason: muscle spasticity) Qty: 20 0RF Rx Instructions: do not exceed 3 doses per 24 hrs prednisone 20 mg tablet 20 mg PO TID Qty: 15 0RF Rx Instructions: 1 p.o. 3 times daily x3 days, 1 p.o. twice daily x2 days, 1 p.o. daily x2 days No Action aripiprazole 20 mg tablet 20 mg PO DAILY Qty: 90 1RF atorvastatin 20 mg tablet 20 mg PO DAILY Qty: 90 1RF losartan 100 mg tablet 100 mg PO DAILY Qty: 90 0RF fluticasone propionate [Flonase Allergy Relief] 50 mcg/actuation spray,suspension 2 spray intranasal DAILY Qty: 16 3RF Rx Instructions: administer into each nostril albuterol sulfate 90 mcg/actuation HFA aerosol inhaler 1 inh inhalation QID PRN (Reason: shortness of breath or wheezing) Qty: 8.5 1RF (DME) Intraoperative Neurophysiological Testing See Rx Instructions .Route .MEDSUPPLY Qty: 1 0RF Rx Instructions: As directed hydrocodone-acetaminophen 5-325 mg tablet 1 - 2 tab PO .Q4-6H Qty: 40 0RF Discharge Orders: Discharge ED (Routine); Ordered 10/15/22 Ordered By: Edd Espinoza Referrals: Nicolas Braun MD [Primary Care Provider] - Discharge Diet: Usual diet Discharge Activity: Limit activity as instructed Patient Instructions: Opioid Safety, Pain Management Activity Restrictions/Additional Instructions: You are seen today for left lower leg pain after your back surgery. On exam there is no sign of venous thrombosis. Suspect you have a postlaminectomy syndrome use the pain medication as previously prescribed as well as activity re strictions given to you by Dr. Smalls after your surgery. Start steroid taper tomorrow and use the muscle relaxers as needed. Follow-up with Dr. Smalls as previously advised sooner if symptoms do not begin to improve Coding Level of Care Code ED Clear Coat Sprayer for Ricky Verdin
[2022-10-15 16:13] VITALS: TEMP 37.5
[2022-10-15 16:18] LABS: Basophils % 0.5 %; Eosinophils # 0.1 10^3/uL (0.0-0.8); Eosinophils % 1.5 %; Hematocrit 30.9 % (42.0-52.0); Lymphocytes # 0.9 10^3/uL (0.8-4.8); Lymphocytes % 11.2 %; Mean Corpuscular HGB Conc 32.4 g/dL (30.0-36.0); Mean Corpuscular Hemoglobin 29.2 pg (28.0-34.0); Mean Corpuscular Volume 90.1 fl (80-94); Mean Platelet Volume 9.8 fL (7.4-10.4); Monocytes # 0.9 10^3/uL (0.2-0.9); Monocytes % 10.6 %; Neutrophils # 6.06 10^3/uL (1.8-7.7); Neutrophils % 75.7 %; Nucleated Red Blood Cells % 0 %; Platelet Count 213 10^3/cmm (130-400); Red Blood Count 3.43 10^6/uL (4.1-5.3); Red Cell Distribution Width 12.1 % (12.1-15.1)
[2022-10-15 16:37] VITALS: RESP 16; O2SAT 98
[2022-10-15] MEDS: morphine 4 mg/mL SDV 1 mL IVP (16:37)
[2022-10-15] MEDS: tizanidine 4 mg Tablet PO (16:37)
[2022-10-15] MEDS: ketorolac 30 mg/mL INJ IVP (16:37)
[2022-10-15 16:38] LABS: Alanine Aminotransferase 24 U/L (0-41); Alkaline Phosphatase 66 U/L (40-130); Anion Gap 12.1 (5-19); Aspartate Amino Transferase 37 U/L (0-40); Blood Urea Nitrogen 11 mg/dL (6-20); Calcium 8.8 mg/dL (8.5-10.5); Carbon Dioxide 30 mmol/L (22-29); Chloride 101 mmol/L (98-107); Globulin 2.6 g/dL (1.3-4.6); Glomerular Filtration Rate 73.1 mL/min (90-130); Glucose 106 mg/dL (65-115); Osmolality Calculated 288 mOsm/kg (285-295); Potassium 4.1 mmol/L (3.5-5.1); Sodium 139 mmol/L (136-145); Total Bilirubin 0.4 mg/dL (0.15-1.2); Total Protein 6.6 g/dL (6.6-8.7)
[2022-10-15 16:57] LABS: Add Urine Microscopic? NO; Charge for UA Resulting for Rev
[2022-10-15 17:01] LABS: Bilirubin Urine Neg (Negative); Blood Urine Neg (Negative); Glucose Urine UA Trace (Normal); Ketones Urine Negative (Negative); Leukocyte Esterase Urine Negative (Negative); Nitrate Urine Negative (Negative); Protein Urine Neg (Negative); Specific Gravity, Urine 1.005 (1.005-1.030); Urine Appearance Clear (CLEAR); Urine Color Straw (Yellow); Urobilinogen Urine Norm (Negative); pH Urine 7 (5-7)
[2022-10-15 17:13] VITALS: PULSE 78; RESP 18; O2SAT 98
== END 2022-10-15 17:15 | disposition home or self-care (01) ==
PROVIDERS: Emergency Provider Family Medicine; PCP Family Medicine
DX: M96.1 Postlaminectomy syndrome, not elsewhere classified (principal); Y83.8 Other surgical procedures as the cause of abnormal reaction of the patient, or of later complication, without mention of misadventure at the time of the procedure; F17.220 Nicotine dependence, chewing tobacco, uncomplicated; I10 Essential (primary) hypertension; E78.5 Hyperlipidemia, unspecified
CPT/HCPCS: 36415; 80048; 80053; 81003; 85025; 96374; 96375; 99284; J1885; J2270

== ENCOUNTER → 2022-11-14 08:07 | Outpatient (BNVA) | payer OTHER, MEDICAID, SELFPAY | PROVIDERS: PCP Family Medicine; Visit Provider Physician Assistant | DX: Z98.1 Arthrodesis status (principal) | CPT/HCPCS: 72100 ==

== ENCOUNTER → 2022-12-05 08:52 | Outpatient (BNVA) | payer OTHER, MEDICAID, SELFPAY | PROVIDERS: PCP Family Medicine; Visit Provider Physician Assistant | DX: Z47.89 Encounter for other orthopedic aftercare (principal); Z98.1 Arthrodesis status | CPT/HCPCS: 72100 ==

== ENCOUNTER 2023-03-05 19:08 | Emergency (ER) | payer MEDICAID, SELFPAY ==
[2023-03-05 19:11] VITALS: BP 139/81; PULSE 108; RESP 18; TEMP 36.6; O2SAT 97; BMI 34.5
--- NOTE | 2023-03-05 19:37 | ED_ITS ---
HPI - Back Pain/Injury General: Chief Complaint: Back Pain/Injury Stated Complaint: back pain Time Seen by Provider: 03/05/23 19:31 History of Present Illness: 42-year-old male patient comes in with low back pain with radiation into the left hip and upper leg. Patient has a history of spinal fusion done in September of this year. Patient denies any fever or chills. Patient appears nontoxic. Patient has been instructed to stay ambulating and female significant other notes that he has swelling along the suture line after walking. Associated symptoms: Deny fever(s), nausea or vomiting Review of Systems General: Reports: 10 or more systems reviewed and unremarkable except in HPI and below Const: Denies: fever(s) ENMT: Denies: throat pain Card: Denies: chest pain Resp: Denies: dyspnea GI: Denies: nausea, vomiting, diarrhea or constipation : Denies: difficulty urinating Musc: Reports: back pain Skin/Breast: Denies: erythema PFSH ED PFSH: Medical History Bipolar disorder Essential hypertension Family history of colon cancer H/O viral illness History of femoral angiogram Hyperlipidemia MARILYNN (obstructive sleep apnea) intolerant of CPAP Peripheral neuropathy all extremities Tobacco dependence chews Surgical History H/O esophagogastroduodenoscopy (08/24/21) H/O hemorrhoidectomy History of colonoscopy with polypectomy (08/24/21) Family History Grandmother No problems noted. Grandfather Cancer lung Hyperlipidemia Hypertension Stroke Family/Other Cancer Uncle[place] Mother Cancer small cell lung Family/Other Cancer Aunt-breast Denies family history of Diabetes CAD (coronary artery disease) Clotting disorder Dementia Chronic kidney disease (CKD) Anesthesia complication Bleeding disorder Lung disease Social History Smoking and tobacco/nicotine status: current every day tobacco/nicotine user smokeless tobacco Smokeless tobacco user: chewing tobacco Second hand smoke exposure: No Alcohol intake: former Substance/Drug Use: never Caregiver/support person: No Lives independently: Yes Household members: spouse and children Marital status: Highest education level completed: GED or Equivalent service: No Current occupational status: employed Current occupation: [employer] Do you think of yourself as: Straight/Heterosexual Current gender identity: Male Physical Exam Const: COMMON NORMALS: alert HENMT: COMMON NORMALS: normocephalic HEAD & SCALP: normocephalic Neck/C-Spine: COMMON NORMALS: full ROM Resp: COMMON NORMALS: normal respiratory effort and clear to auscultation bilaterally AUSCULTATION: clear to auscultation bilaterally Cardio: COMMON NORMALS: regular rate and regular rhythm RATE: regular rate RHYTHM: regular rhythm GI: COMMON NORMALS: Soft to palpation PALPATION: Yes Soft to palpation Back/Pelvis: COMMON NORMALS: thoracic and lumbar spine normal to inspection Extremity: COMMON NORMALS: normal to inspection Neuro: SENSORIUM/ORIENTATION: Yes alert Skin: NARRATIVE SKIN EXAM: Well-healed wound to the lumbar area of the back, no redness or swelling is noted. Course Vital Signs: Vital signs: Vital Signs Temperature 97.8 F 03/05/23 19:11 Pulse Rate 108 H 03/05/23 19:11 Respiratory Rate 18 03/05/23 19:11 Blood Pressure 139/81 03/05/23 19:11 Pulse Oximetry 97 03/05/23 19:11 MDM - Back Pain/Injury Medical Decision Making 42-year-old male patient comes in today for complaints of low back pain. Patient reports some swelling along the surgical line after walking, and some increased pain and discomfort with radiation to the left hip over the last month. Patient appears nontoxic. Patient is scheduled for follow-up with specialist tomorrow. Patient states that he was referred to the ER for x-rays and evaluation for concerns of possible infection. No signs of infection are noted at this time. Differential diagnosis includes seroma, wound infection, sciatica, but chronic back pain, foraminal stenosis, intervertebral disc disease, facet arthritis, failure of hardware. Patient appears stable. X-rays showed no changes from prior exam. No signs of infection were noted. Reviewed exam with patient with recommendations for follow-up with surgeon, Dr. Smalls, at tomorrow's appointment that is already scheduled. XR interpretation done by ED provider, pending radiology final review Discharge Plan Discharge Patient Disposition: Home Clinical Impression: Lumbar radiculopathy Condition: Stable Prescriptions: No Action fluticasone propionate [Flonase Allergy Relief] 50 mcg/actuation spray,suspension 2 spray intranasal DAILY Qty: 16 3RF Rx Instructions: administer into each nostril atorvastatin 20 mg tablet 20 mg PO DAILY Qty: 90 1RF loratadine 10 mg tablet 10 mg PO DAILY Qty: 30 0RF famotidine 20 mg tablet 20 mg PO DAILY Qty: 30 0RF (DME) Intraoperative Neurophysiological Testing See Rx Instructions .Route .MEDSUPPLY Qty: 1 0RF Rx Instructions: As directed albuterol sulfate 90 mcg/actuation HFA aerosol inhaler 1 inh inhalation QID PRN (Reason: shortness of breath or wheezing) Qty: 8.5 1RF losartan 100 mg tablet See Rx Instructions .ROUTE .COMPLEX Qty: 30 0RF Dose Instruction: TAKE 1 TABLET BY MOUTH DAILY Rx Instructions: TAKE 1 TABLET BY MOUTH DAILY aripiprazole 20 mg tablet See Rx Instructions .ROUTE .COMPLEX Qty: 30 0RF Dose Instruction: TAKE 1 TABLET BY MOUTH DAILY Rx Instructions: TAKE 1 TABLET BY MOUTH DAILY Discharge Orders: Discharge ED (Routine); Ordered 03/05/23 Ordered By: Brodie Arzate Referrals: Nicolas Braun MD [Primary Care Provider] - Discharge Diet: Usual diet Discharge Activity: Increase activity as tolerated Patient Instructions: Back Pain (ED) Activity Restrictions/Additional Instructions: Activity as tolerated. Follow-up with surgeon at tomorrow's appointment. Return to ED for new concerns. Coding Level of Care Code ED Striper Spray Gun for Ricky Verdin
--- NOTE | 2023-03-05 19:39 | XRR_ITS ---
PROCEDURE INFORMATION: Exam: XR Lumbosacral Spine Exam date and time: 03/05/2023 8:59 PM Age: 42 years old Clinical indication: Low back pain; Prior surgery; Surgery date: 1-6 months; Surgery type: Lumbar; Additional info: Back pain, palpable surgical hardware TECHNIQUE: Imaging protocol: Radiologic exam of the lumbosacral spine. Views: 2 or 3 views. COMPARISON: CR XR lumbar spine 2-3V* [id number] 12/05/2022 8:55 AM FINDINGS: Bones/joints: There are 5 lumbar type vertebral bodies. Status post L4-S1 posterior instrumented fixation/fusion with paired transpedicular screws. Artificial discs at L4-L5 and L5-S1. Stable appearance of hardware without complication. No acute fracture or malalignment. Mild multilevel degenerative changes primarily characterized by osteophyte formation and facet arthropathy. Mild left convex curvature of the lumbar spine. Sacroiliac joints and hip joints are congruent. Soft tissues: Unremarkable. XR/XR lumbar spine 2-3V* [id number] IMPRESSION: No acute findings. Stable appearance of hardware status post L4-S1 posterior instrumented fixation and fusion.
== END 2023-03-05 20:24 | disposition home or self-care (01) ==
PROVIDERS: Emergency Provider Nurse Practitioner Family; PCP Family Medicine
DX: M54.16 Radiculopathy, lumbar region (principal); F17.220 Nicotine dependence, chewing tobacco, uncomplicated
CPT/HCPCS: 72100; 99283

== ENCOUNTER → 2023-03-06 08:28 | Outpatient (BNVA) | payer MEDICAID, SELFPAY | PROVIDERS: PCP Family Medicine; Visit Provider Physician Assistant | DX: Z98.1 Arthrodesis status | CPT/HCPCS: 72100 ==

== ENCOUNTER 2023-04-06 07:45 | Outpatient (CLI) | payer MEDICAID, SELFPAY ==
--- NOTE | 2023-04-06 08:00 | MR_ITS ---
WS: [id number] MRI LUMBAR SPINE NONCONTRAST TECHNIQUE: Sagittal T1, T2 and STIR imaging. Axial T1 and T2 imaging. CLINICAL INFORMATION: Z98.1 - Arthrodesis status COMPARISON: MRI 08/18/2022 FINDINGS: Mild lumbar curve. No acute compression. No high-grade central canal stenosis. Pedicle screw fixation L4-S1. Interbody fusion grafts L4-L5 and L5-S1. Postoperative changes are new since 08/18/2022 Small central protrusions in the cervical spine on the adjusto writer operator imaging at C5-C6 and T1-2 worse at T1-2 with mild central canal stenosis. L1-L2: No significant disc bulging. Mild facet arthropathy. Spinal canal and foramen are patent. L2-L3: No significant disc bulging. Mild arthropathy. Spinal canal and foramen are patent. L3-L4: Mild annular bulging. Slight narrowing of the RIGHT greater than LEFT subarticular recess. Mod erate facet arthropathy. Mild RIGHT greater than LEFT foraminal narrowing. L4-L5: Postoperative changes pedicle screw fixation. Laminectomy defects. Mild LEFT greater than RIGH T foraminal narrowing. Spinal canal is patent. L5-S1: L5 is partially sacralized. Laminectomy defects. Mild LEFT foraminal narrowing. Spinal canal a nd RIGHT foramen are patent. Visualized pelvic bony structures: Normal. Paravertebral soft tissues: Normal. IMPRESSION: 1. Postoperative changes pedicle screw fixation L4-S1 is new compared to previous. Interbody fusion grafts. 2. No central canal stenosis. 3. Mild disc bulging L3-4 with slight effacement of the ventral thecal sac. 4. RIGHT foraminal protrusion L3-4 slightly impinges the exiting RIGHT L3 nerve root. Recommend dru elation with RIGHT L3 nerve root symptoms. 5. Mild LEFT L4-5 and LEFT L5-S1 bony foraminal narrowing. 6. Moderate facet arthropathy L2-L3 and L3-L4.
== END 2023-04-06 07:46 | disposition home or self-care (01) ==
LOC: RAD 07:45
PROVIDERS: PCP Family Medicine; Visit Provider Physician Assistant
DX: Z98.1 Arthrodesis status (principal); M51.36 Other intervertebral disc degeneration, lumbar region; M48.07 Spinal stenosis, lumbosacral region; M47.816 Spondylosis without myelopathy or radiculopathy, lumbar region
CPT/HCPCS: 72148

== ENCOUNTER 2023-10-07 19:51 | Emergency (ER) | payer MEDICAID, SELFPAY ==
[2023-10-07 20:06] VITALS: BP 158/89; PULSE 110; RESP 17; TEMP 37.1; O2SAT 94; BMI 34.5
--- NOTE | 2023-10-07 20:25 | ED_ITS ---
HPI - Extremity Problem General: Chief complaint: Extremity Injury, Upper Stated complaint: Right shoulder injury Time Seen by Provider: 10/07/23 20:13 History of Present Illness: Patient says he has been having right shoulder pain for several months. He figured it was arthritis like what he had in his left shoulder but the pain has been getting worse over the last couple days he is having trouble sleeping. We discussed options and he wants anti-inflammatory and steroid here and he will follow with orthopedics. No imaging indicated today. Review of Systems Narrative: Thank you for choosing [facility] for your healthcare needs today. Please realize this is an emergency room and that we are providing you with a medical screening exam and this may not be complete and all inclusive of all the testing and or work up that you may need to determine your ailment or severity of your illness. You have been screened and evaluated and felt safe for discharge. Health c onditions do change or evolve sometimes and as such it is important that you follow up with your Primary Doctor to be re checked, 3-5 days is a general good time frame for follow up. You are always welcome to return to the ED for re assessment if your symptoms are worsening or you have new concerns [facility] ED PFSH: Medical History MARILYNN (obstructive sleep apnea) intolerant of CPAP Tobacco dependence chews Essential hypertension H/O viral illness Peripheral neuropathy all extremities Bipolar disorder History of femoral angiogram Family history of colon cancer Hyperlipidemia Surgical History History of colonoscopy with polypectomy (08/24/21) H/O esophagogastroduodenoscopy (08/24/21) H/O hemorrhoidectomy Family History Grandmother No problems noted. Grandfather Cancer lung Hyperlipidemia Hypertension Stroke Family/Other Cancer [place] Mother Cancer small cell lung Family/Other Cancer Aunt-breast Denies family history of Diabetes CAD (coronary artery disease) Clotting disorder Dementia Chronic kidney disease (CKD) Anesthesia complication Bleeding disorder Lung disease Social History Smoking and tobacco/nicotine status: current every day tobacco/nicotine user smokeless tobacco Smokeless tobacco user: chewing tobacco Second hand smoke exposure: No Alcohol intake: former Substance/Drug Use: never Caregiver/support person: No Lives independently: Yes Household members: spouse and children Marital status: Highest education level completed: GED or Equivalent service: No Current occupational status: employed Current occupation: [employer] Do you think of yourself as: Straight/Heterosexual Current gender identity: Male Physical Exam Narrative: EXAM NARRATIVE: General: Alert, no acute distress. Skin: warm and dry Head: Normocephalic Neck: Trachea midline Eye: Extraocular movements are intact. Ears, nose, mouth and throat: Oral mucosa moist Respiratory: Respirations are non-labored Musculoskeletal: Normal ROM Neurological: Alert and oriented, No focal neurological deficit observed. Psychiatric: Cooperative, appropriate mood & affect. Course Vital Signs: Vital signs: Vital Signs Temperature 98.8 F 10/07/23 20:06 Pulse Rate 110 H 10/07/23 20:06 Respiratory Rate 17 10/07/23 20:06 Blood Pressure 158/89 10/07/23 20:06 Pulse Oximetry 94 10/07/23 20:06 Oxygen Delivery Me thod Room Air 10/07/23 20:06 MDM - Extremity (Nontraumatic) Medical Decision Making Assessment and plan: -IM Toradol. IM Decadron and p.o. [facility] here in the emergency room. - Discharged home - Discussed plan with patient. Answered any questions. - Evaluation and treatment of this problem were appropriate in the emergency setting. No radiology studies performed this visit Discharge Plan Discharge Patient Disposition: Home Clinical Impression: Right shoulder pain Qualifiers: Chronicity: chronic Qualified Code(s): M25.511 - Pain in right shoulder Condition: Stable Prescriptions: New prednisone 20 mg tablet 60 mg PO DAILY Qty: 20 0RF Rx Instructions: 3 tabs (60 mg) x 3 days. 2 tabs (40 mg) x 3 days. 1 tab (20 mg) x 3 days. 1/2 tab (10 mg) x 4 days diclofenac sodium 50 mg tablet,delayed release (DR/EC) 50 mg PO Q12H Qty: 20 0RF No Action fluticasone propionate [Flonase Allergy Relief] 50 mcg/actuation spray,suspension 2 spray intranasal DAILY Qty: 16 3RF Rx Instructions: administer into each nostril prednisone 20 mg tablet 20 mg PO DAILY PRN (Reason: ptop pain) Qty: 15 0RF Rx Instructions: Take 60mg (3 tabs) days 1, 2, 3 Take 40mg (2 tabs) days 4 and 5 take 20mg (1 tab) days 6 and 7 loratadine 10 mg tablet 10 mg PO DAILY Qty: 30 0RF famotidine 20 mg tablet 20 mg PO DAILY Qty: 30 0RF tizanidine 4 mg tablet 4 mg PO BID PRN (Reason: muscle spasticity) Qty: 60 0RF (DME) Intraoperative Neurophysiological Testing See Rx Instructions .Route .MEDSUPPLY Qty: 1 0RF Rx Instructions: As directed albuterol sulfate 90 mcg/actuation HFA aerosol inhaler 1 inh inhalation QID PRN (Reason: shortness of breath or wheezing) Qty: 8.5 1RF atorvastatin 20 mg tablet See Rx Instructions .ROUTE .COMPLEX Qty: 90 0RF Dose Instruction: TAKE 1 TABLET BY MOUTH DAILY Rx Instructions: TAKE 1 TABLET BY MOUTH DAILY losartan 100 mg tablet See Rx Instructions .ROUTE .COMPLEX Qty: 60 0RF Dose Instruction: TAKE 1 TABLET BY MOUTH DAILY Rx Instructions: TAKE 1 TABLET BY MOUTH DAILY aripiprazole 20 mg tablet See Rx Instructions .ROUTE .COMPLEX Qty: 60 0RF Dose Instruction: TAKE 1 TABLET BY MOUTH DAILY Rx Instructions: TAKE 1 TABLET BY MOUTH DAILY Discharge Orders: Discharge ED (Routine); Ordered 10/07/23 Ordered By: Krystin Alan Referrals: Darrel Smalls DO [Physician] - (Please call for follow-up appointment.) Nicolas Braun MD [Primary Care Provider] - 4-7 days Discharge Diet: Usual diet Discharge Activity: Increase activity as tolerated Patient Instructions: Opioid Safety, Pain Management Activity Restrictions/Additional Instructions: Thank you for choosing [facility] for your healthcare needs today. Please realize this is an emergency room and that we are providing you with a medical screening exam and this may not be complete and all inclusive of all the testing and or work up that you may need to determine your ailment or severity of your illness. You have been screened and evaluated and felt safe for discharge. Health conditions do change or evolve sometimes and as such it is important that you follow up with your Primary Doctor to be re checked, 3-5 days is a general good time frame for follow up. You are always welcome to return to the ED for re assessment if your symptoms are worsening or you have new concerns Coding Level of Care Code ED Director Of Labor And Delivery for Ricky Verdin
[2023-10-07] MEDS: dexamethasone 10 mg/mL INJ IM (20:32)
[2023-10-07] MEDS: ketorolac 60 mg/2 mL INJ IM (20:32)
[2023-10-07] MEDS: HYDROcodone-acetaminophen 10-325 mg Tablet 1 TAB PO (20:32)
== END 2023-10-07 20:42 | disposition home or self-care (01) ==
PROVIDERS: Emergency Provider Emergency Medicine; PCP Family Medicine
DX: G89.29 Other chronic pain (principal); M25.511 Pain in right shoulder; F17.220 Nicotine dependence, chewing tobacco, uncomplicated; I10 Essential (primary) hypertension; E78.5 Hyperlipidemia, unspecified
CPT/HCPCS: 96372; 99284; J1100; J1885

== ENCOUNTER 2023-12-14 12:47 | Outpatient (CLI) | payer MEDICAID, SELFPAY ==
--- NOTE | 2023-12-14 12:51 | XR_ITS ---
WS: [id number] Right shoulder, 2 views, 12/14/2023 Clinical Data: shoulder pain Comparison: Right shoulder, 07/12/2021 Findings: No fractures or dislocations are seen. The AC joint is normal. The adjacent right clavicle, right sca pula and ribs are normal. The soft tissues are unremarkable. XR/XR shoulder RT min 2V* [id number] Impression: Negative right shoulder.
== END 2023-12-14 12:48 | disposition home or self-care (01) ==
PROVIDERS: PCP Family Medicine; Visit Provider Family Medicine
DX: M25.511 Pain in right shoulder (principal)
CPT/HCPCS: 73030

== ENCOUNTER 2024-01-02 07:00 | Outpatient (CLI) | payer MEDICAID, SELFPAY | END 2024-01-02 07:01 | disposition home or self-care (01) | LOC: RAD 01-22 16:06 | PROVIDERS: PCP Family Medicine; Visit Provider Family Medicine | DX: I10 Essential (primary) hypertension (principal); E66.9 Obesity, unspecified | CPT/HCPCS: 80053; 80061; 83036; 85025 ==

== ENCOUNTER 2024-01-29 15:22 | Outpatient (CLI) | payer MEDICAID, SELFPAY ==
--- NOTE | 2024-01-29 16:00 | MR_ITS ---
WS: [id number] MRI RIGHT SHOULDER HISTORY: rotator cuff tear COMPARISON: Radiograph 01/30/2024 TECHNIQUE: Multiplanar sequences of the shoulder joint are submitted. Marked AC joint arthritis. AC joint is narrowed with fluid. Small erosions involving the distal clavi miriam and adjacent acromion. 10 mm osteophyte from the distal clavicle encroaches upon the supraspinatu s tendon and muscle. Moderate downsloping and spurring of the acromion. Marked subacromial impingemen t by an osteophyte. No os acromion. Normal position of the biceps tendon. Biceps tendon is very diffi cult to identify through the rotator cuff interval. There is a small amount of fluid present at the r otator cuff interval which may indicate a partial tear or injury to the biceps tendon. The coracohume ral ligament appears intact. Complete versus near complete full-thickness tear of the distal supraspinatus tendon directly over th e superior humeral head. The very bursal surface of the tendon may still be intact. The tendon is not retracted. Width of the tear is approximately 6 mm. There is adjacent distal and more proximal tendi nopathy. Infraspinatus tendon is normal. Marked thickening and increased T2 signal in the subscapular is tendon. Narrowing of the coracohumeral interval. There is also a humeral head osteophyte contribut ing to the coracohumeral interval narrowing and encroaching upon the subscapularis tendon. Mild fluid distention of the subscapularis recess. No definite labral tears are identified. MR/MR shoulder RT wo con* [id number] IMPRESSION: 1. Marked AC joint arthropathy with a 10 mm osteophyte encroaching upon the taylor praspinatus muscle and tendon. 2. Downsloping of the acromion with marked subacromial impingement. 3. Complete versus near complete full-thickness tear of the distal supraspinat us tendon. There may be residual bursal surface tendon. 4. Subscapularis tendinopathy. 5. Narrowing of the coracohumeral interval. 6. Poorly visualized biceps tendon at the rotator cuff interval.
== END 2024-01-29 15:23 | disposition home or self-care (01) ==
LOC: RAD 15:23
PROVIDERS: PCP Family Medicine; Visit Provider Family Medicine
DX: M19.011 Primary osteoarthritis, right shoulder (principal); M25.711 Osteophyte, right shoulder; M75.41 Impingement syndrome of right shoulder; M75.91 Shoulder lesion, unspecified, right shoulder
CPT/HCPCS: 73221

== ENCOUNTER → 2024-01-30 07:46 | Outpatient (BNVA) | payer MEDICAID, SELFPAY | PROVIDERS: PCP Family Medicine; Visit Provider Specialist | DX: M19.011 Primary osteoarthritis, right shoulder (principal) | CPT/HCPCS: 73030 ==

== ENCOUNTER 2024-02-17 21:51 | Emergency (ER) | payer MEDICAID, SELFPAY ==
[2024-02-17 22:12] VITALS: BP 164/84; PULSE 100; RESP 18; TEMP 36.8; O2SAT 95; BMI 34.5
--- NOTE | 2024-02-17 23:36 | XRR_ITS ---
PROCEDURE INFORMATION: Exam: XR Right Shoulder Exam date and time: 02/17/2024 11:46 PM Age: 43 years old Clinical indication: Right; Patient HX: RT shoulder pain after pulling injury TECHNIQUE: Imaging protocol: Radiologic exam of the right shoulder. Views: 2 or more views. COMPARISON: CR XR shoulder RT min 2V* [id number] 01/30/2024 7:47 AM FINDINGS: Bones/joints: No acute fracture or dislocation. Moderate acromioclavicular degenerative joint disease. Soft tissues: Unremarkable. XR/XR shoulder RT min 2V* [id number] IMPRESSION: No acute bony findings.
--- NOTE | 2024-02-17 23:44 | ED_ITS ---
HPI - Extremity Problem General: Chief complaint: Extremity Injury, Upper Stated complaint: right shoulder injury Time Seen by Provider: 02/17/24 23:35 History of Present Illness: 43-year-old male patient comes in today for injury to the right shoulder. Patient has known rotator cuff injury. Patient reports he was helping his mother by pulling her wheelchair backwards with her in an and felt a strain and popping sensation in his right shoulder. Patient reports that since then he has had increased pain and discomfort for the last 24 hours. Patient appears nontoxic. Patient appears in moderate pain. Related Data Previous Rx's Medication Instructions Recorded fluticasone propionate 50 2 spray intranasal DAILY #16 grams 08/14/22 mcg/actuation nasal spray,suspension (Flonase Allergy Relief) Intraoperative Neurophysiological #1 ea 10/11/22 Testing albuterol sulfate 90 mcg/actuation 1 inh inhalation QID PRN shortness 10/17/22 aerosol inhaler of breath or wheezing #8.5 grams loratadine 10 mg tablet 10 mg PO DAILY #30 tabs 02/21/23 acetaminophen 650 mg 650 mg PO Q8H PRN pain #90 tabs 01/02/24 tablet,extended release (Tylenol Arthritis Pain) atorvastatin 20 mg tablet 20 mg PO DAILY #90 tabs 01/02/24 cyclobenzaprine 10 mg tablet 10 mg PO TID PRN muscle spasm #60 01/02/24 tabs aripiprazole 10 mg tablet 10 mg PO DAILY #90 tabs 01/31/24 losartan 50 mg tablet 50 mg PO DAILY #90 tabs 01/31/24 ketorolac 10 mg tablet 10 mg PO Q6H PRN pain #12 tabs 02/17/24 Allergies Allergy/AdvReac Type Severity Reaction Status Date / Time paroxetine AdvReac Intermediate ADR-Dizzine Verified 01/31/24 11:19 ss Review of Systems General: Reports: 10 or more systems reviewed and unremarkable except in HPI and below Musc: Reports: joint pain (Right shoulder pain.) PFSH ED PFSH: Medical History MARILYNN (obstructive sleep apnea) intolerant of CPAP Tobacco dependence chews Essential hypertension H/O viral illness Peripheral neuropathy all extremities Bipolar disorder History of femoral angiogram Family history of colon cancer Hyperlipidemia Surgical History History of colonoscopy with polypectomy (08/24/21) H/O esophagogastroduodenoscopy (08/24/21) H/O hemorrhoidectomy Family History Grandmother No problems noted. Grandfather Cancer lung Hyperlipidemia Hypertension Stroke Family/Other Cancer [place] Mother Cancer small cell lung Family/Other Cancer Aunt-breast Denies family history of Diabetes CAD (coronary artery disease) Clotting disorder Dementia Chronic kidney disease (CKD) Anesthesia complication Bleeding disorder Lung disease Social History Smoking and tobacco/nicotine status: never used tobacco/nicotine Second hand smoke exposure: No Alcohol intake: former Substance/Drug Use: never Caregiver/support person: No Lives independently: Yes Household members: spouse and children Marital status: Highest education level completed: GED or Equivalent service: No Current occupational status: employed Current occupation: [employer] Do you think of yourself as: Straight/Heterosexual Current gender identity: Male Physical Exam Const: COMMON NORMALS: alert HENMT: COMMON NORMALS: normocephalic HEAD & SCALP: normocephalic Resp: COMMON NORMALS: normal respiratory effort Cardio: COMMON NORMALS: regular rate RATE: regular rate GI: COMMON NORMALS: Soft to palpation PALPATION: Yes Soft to palpation Back/Pelvis: COMMON NORMALS: thoracic and lumbar spine normal to inspection Extremity: COMMON NORMALS: full ROM Neuro: SENSORIUM/ORIENTATION: Yes alert Skin: COMMON NORMALS: turgor normal GENERAL SKIN EXAM: turgor normal Course Vital Signs: Vital signs: Vital Signs Temperature 98.2 F 02/17/24 22:12 Pulse Rate 100 02/17/24 22:12 Respiratory Rate 18 02/17/24 22:12 Blood Pressure 164/84 02/17/24 22:12 Pulse Oximetry 95 02/17/24 22:12 Oxygen Delivery Me thod Room Air 02/17/24 22:12 MDM - Extremity (Nontraumatic) Medical Decision Making 43-year-old male patient comes in today with increased pain in his right shoulder. Patient reported helping his mother in her wheelchair across some gravel by pulling it backwards and felt a popping sensation in his right shoulder. Since then patient has had increased pain and discomfort to the shoulder with range of motion. No drop-off is noted in the shoulder joint. Patient has some anterior shoulder tenderness. Intact range of motion. Differential diagnosis includes impingement syndrome of the shoulder, shoulder sprain, rotator cuff tendinitis, malingering. X-ray of the shoulder was unremarkable. Patient was given a injection of Toradol for pain and inflammation and 1 hydrocodone tablet. Patient will continue on Toradol tablets with recommendations for follow-up with primary care or information systems security specialist for further evaluation and treatment. Patient reported understanding. XR interpretation done by ED provider, pending radiology final review Discharge Plan Discharge Patient Disposition: Home Clinical Impression: Right shoulder pain Qualifiers: Chronicity: acute Qualified Code(s): M25.511 - Pain in right shoulder Condition: Stable Prescriptions: New ketorolac 10 mg tablet 10 mg PO Q6H PRN (Reason: pain) Qty: 12 0RF Rx Instructions: maximum total duration of 5 days No Action fluticasone propionate [Flonase Allergy Relief] 50 mcg/actuation spray,suspension 2 spray intranasal DAILY Qty: 16 3RF Rx Instructions: administer into each nostril loratadine 10 mg tablet 10 mg PO DAILY Qty: 30 0RF atorvastatin 20 mg tablet 20 mg PO DAILY Qty: 90 1RF cyclobenzaprine 10 mg tablet 10 mg PO TID PRN (Reason: muscle spasm) Qty: 60 0RF acetaminophen [Tylenol Arthritis Pain] 650 mg tablet extended release 650 mg PO Q8H PRN (Reason: pain) Qty: 90 1RF aripiprazole 10 mg tablet 10 mg PO DAILY Qty: 90 1RF losartan 50 mg tablet 50 mg PO DAILY Qty: 90 1RF (DME) Intraoperative Neurophysiological Testing See Rx Instructions .Route .MEDSUPPLY Qty: 1 0RF Rx Instructions: As directed albuterol sulfate 90 mcg/actuation HFA aerosol inhaler 1 inh inhalation QID PRN (Reason: shortness of breath or wheezing) Qty: 8.5 1RF Discharge Orders: Discharge ED (Routine); Ordered 02/17/24 Ordered By: Brodie Arzate Referrals: Nicolas Braun MD [Primary Care Provider] - Discharge Diet: Usual diet Discharge Activity: Increase activity as tolerated Patient Instructions: Rotator Cuff Injury (ED) Activity Restrictions/Additional Instructions: Light activity. Gentle stretching and range of motion exercises. Avoid strenuous activity with a lot of pulling on the extremity. Follow-up with primary care or information systems security specialist for further evaluation and treatment. Return to ER for new concerns. Coding Level of Care Code ED Sas Administrator for Ricky Verdin
[2024-02-17] MEDS: ketorolac 30 mg/mL INJ IM (23:49)
[2024-02-17] MEDS: HYDROcodone-acetaminophen 7.5-325 mg Tablet 1 TAB PO (23:49)
[2024-02-18 00:14] VITALS: BP 155/78; PULSE 68; O2SAT 100
== END 2024-02-18 00:15 | disposition home or self-care (01) ==
PROVIDERS: Emergency Provider Nurse Practitioner Family; PCP Family Medicine
DX: M25.511 Pain in right shoulder (principal); X50.0XXA Overexertion from strenuous movement or load, initial encounter
CPT/HCPCS: 73030; 96372; 99284; J1885

== ENCOUNTER 2024-03-10 07:58 | Day surgery (SDC) | payer OTHER, MEDICAID, SELFPAY ==
[2024-03-10] VITALS (15 sets, daily range): BP systolic 151–184; BP diastolic 66–113; PULSE 74–91; RESP 11–20; TEMP 36.2–36.7; O2SAT 94–98; BMI 34.5
--- NOTE | 2024-03-10 05:55 | P.HPUD_ITS ---
Surgery/Procedure H&P Update DATE OF PROCEDURE: March 10, 2024 DATE H&P PERFORMED: 02/20/24 H&P UPDATE INFORMATION: I have reviewed H&P completed within last 30 days, I have examined patient prior to procedure, No changes to prior documentation and H&P is in [facility] EMR on date indicated PLANNED PROCEDURE: Operation Date: 03/10/24 09:35 Proposed Procedures p excision of lipoma of lower right 35027, 41828, D17.9(Right) - Mike Bean MD s upper right extermities(Right) - Mike Bean MD
--- NOTE | 2024-03-10 08:38 | ANES.PREANE2 ---
Pre-Anesthetic Assessment Height/Weight: Height 1.8 m Operation Date: 03/10/24 09:35 Proposed Procedures p excision of lipoma of lower right 99901, 14469, D17.9(Right) - Mike Bean MD s upper right extermities(Right) - Mike Bean MD Familial anesthetic complications: None Was Beta Rudi taken within 24 hours: N/A Was Clonidine taken within 24 hours: N/A Last intake: > 8hrs Social No alcohol and No tobacco Former smoker Exam alert, oriented x 3, clear to auscultation bilaterally and regular rate & rhythm Airway Mallampati: Class IV Dentition: chipped CV/HEM Hypertension Metabolic Hyperlipidemia and Morbid Obesity Anesthetic Plan ASA status: 2 Anesthesia: General Risk of > 500 ml blood loss (7ml/kg in children): No Medications/Allergies Home Medications Medication Instructions Recorded Confirmed Last Taken Type fluticasone propionate 50 2 spray intranasal DAILY #16 grams 08/14/22 03/06/24 03/03/24 Rx mcg/actuation nasal spray,suspension (Flonase Allergy Relief) Intraoperative Neurophysiological #1 ea 10/11/22 02/20/24 Unknown Rx Testing albuterol sulfate 90 mcg/actuation 1 inh inhalation QID PRN shortness 10/17/22 03/06/24 Unknown Rx aerosol inhaler of breath or wheezing #8.5 grams acetaminophen 650 mg 650 mg PO Q8H PRN pain #90 tabs 01/02/24 03/06/24 Unknown Rx tablet,extended release (Tylenol Arthritis Pain) atorvastatin 20 mg tablet 20 mg PO DAILY #90 tabs 01/02/24 03/06/24 03/09/24 Rx cyclobenzaprine 10 mg tablet 10 mg PO TID PRN muscle spasm #60 01/02/24 03/06/24 Unknown Rx tabs aripiprazole 10 mg tablet 10 mg PO DAILY #90 tabs 01/31/24 03/06/24 03/09/24 Rx losartan 50 mg tablet 50 mg PO DAILY #90 tabs 01/31/24 03/06/24 03/09/24 Rx ketorolac 10 mg tablet 10 mg PO Q6H PRN pain #12 tabs 02/17/24 03/06/24 03/09/24 Rx Allergies Allergy/AdvReac Type Severity Reaction Status Date / Time paroxetine AdvReac Intermediate ADR-Dizzine Verified 02/20/24 09:17 [facility] Anesthesia Medical History MARILYNN (obstructive sleep apnea) intolerant of CPAP Tobacco dependence chews Essential hypertension H/O viral illness Peripheral neuropathy all extremities Bipolar disorder History of femoral angiogram Family history of colon cancer Hyperlipidemia Surgical History History of colonoscopy with polypectomy (08/24/21) H/O esophagogastroduodenoscopy (08/24/21) H/O hemorrhoidectomy Family History Grandmother No problems noted. Grandfather Cancer lung Hyperlipidemia Hypertension Stroke Family/Other Cancer [place] Mother Cancer small cell lung Family/Other Cancer Aunt-breast Denies family history of Diabetes CAD (coronary artery disease) Clotting disorder Dementia Chronic kidney disease (CKD) Anesthesia complication Bleeding disorder Lung disease Social History (Updated 02/20/24 @ 09:18 by Ashley Red) Smoking and tobacco/nicotine status: former use of tobacco/nicotine Second hand smoke exposure: No Alcohol intake: former Substance/Drug Use: never Caregiver/support person: No Lives independently: Yes Household members: spouse and children Marital status: Highest education level completed: GED or Equivalent service: No Current occupational status: employed Current occupation: [employer] Do you think of yourself as: Straight/Heterosexual Current gender identity: Male Data Anesthesia Cardiac Studies: No Data to Display
[2024-03-10] MEDS: sodium chloride 0.9% 1,000 ML 30 ML IV (08:41)
[2024-03-10] MEDS: ceFAZolin 2,000 mg SDV 2000 MG IVP (08:52)
[2024-03-10] MEDS: lidocaine-epi 1% PF 1:200,000 30 mL SDV INJECTION (09:30)
[2024-03-10] MEDS: BUPivacaine 0.25% INJ 30 mL INJECTION (09:30)
--- NOTE | 2024-03-10 10:07 | PM.OP ---
Operative Report Date of procedure: March 10, 2024 Pre-op diagnosis: Right upper extremity and right lower extremity mass Post-op diagnosis: Mass of the right upper extremity, ruptured synovial cyst of the right lower extremity Post-op findings: In the right forearm there was a small lesion measuring about 1 x 1 cm, consistent with a lipoma. In the right lower extremity at the level of the upper outer portion of the leg there was a palpable lesion, after opening the skin it was evident that this lesion was actually a ruptured synovial cyst. Procedure done: Excision of right upper extremity soft tissue mass, excision of ruptured synovial cyst of the right lower extremity Implants: None Specimens removed/disposition: Right upper extremity mass, right lower extremity mass Surgeon: Mike Bean MD Brief History: 43-year-old male who presents with multiple soft tissue lesions to the clinic, after discussion of all recent benefits documented my preop note we decided to proceed with right upper extremity mass excision and right lower extremity mass excision. Procedure: Patient was brought into the OR, placed in a supine position. General anesthesia was given. The right upper extremity and right lower extremity were prepped and draped in the usual sterile fashion. Timeout was conducted. I placed my attention to the right upper extremity in the forearm very close to the elbow there was a 1 cm palpable nodule, 1.5 cm incision was made on the overlying skin, the incision was deepened to subcutaneous tissue, the nodule was dissected circumferentially with a hemostat. The lesion was completely excised with electrocautery. Hemostasis was achieved, the wound was irrigated. The wound was closed in layers using #3-0 Vicryl for the subcutaneous tissue #4 Monocryl for the skin. Dermabond was applied. I then placed my attention to the right lower extremity. The area of a palpable lesion 4 cm incision was made, the incision was deepened to the subcutaneous tissue, no identifiable Interval palpable mass was noted at upon immediate opening of the subcutaneous tissue the subcutaneous fat was noted to be edematous and infiltrated, careful blunt aspiration was done and it was immediately noticed that there was a rupture cyst possibly originating from the tibiofibular joint. The rupture portion of the cyst was excised with electrocautery, the capsule of the joint was then closed with a 2 layer running #3-0 Vicryl suture. Hemostasis was achieved. The wound was irrigated. The wound was then closed in layers using #3-0 Vicryl for the subcutaneous tissue #4 Monocryl for the skin. Dermabond was applied. Sterile dressing was applied. At the end of the procedure all counts were correct, the patient tolerated well the procedure was transferred to PACU in stable condition.
[2024-03-10] MEDS: metoprolol tartrate 1 mg/1 mL SDV 5 mL 3 MG IVP (10:12)
[2024-03-10] MEDS: hyDRALAzine 20 mg/mL INJ 1 mL 5 MG IVP ×2 (10:30→10:47)
--- NOTE | 2024-03-10 10:44 | PC.NURSE ---
1025 - BEL Kong notified of continued high blood pressure - orders rec'd
--- NOTE | 2024-03-10 10:51 | PC.NURSE ---
1045- BP still remains elevated - will give additional 5mg hydralize per BEL Kong order
--- NOTE | 2024-03-10 11:04 | PC.NURSE ---
1104 - BEL Kong notified of BP - pt states this is his baseline - Luann relayed that pt needs to F/U with PCP due to blood pressure and return to ER with chest pain, shortness of breath, headache - pt verbalizes understanding to all of above
--- NOTE | 2024-03-10 11:45 | ANE.PACU2 ---
Inpatient post-anesthesia follow up: Airway intact: Yes Vital signs: Temperature 97.7 F Pulse Rate 80 Respiratory Rate 18 Blood Pressure 184/102 Pulse Oximetry 98 Oxygen Delivery Me thod Room Air Oxygen Flow Rate Fraction of Inspir ed Oxygen Hydration adequate: Yes Nausea and vomiting: No Pain level: 1 Mental status: Baseline
== END 2024-03-10 11:47 | disposition home or self-care (01) ==
PROVIDERS: PCP Family Medicine; Visit Provider Surgery
PROC: (CPT 10160; principal; 2024-03-10 09:25)
PROC: (CPT 10160; 2024-03-10 09:25)
DX: D17.21 Benign lipomatous neoplasm of skin and subcutaneous tissue of right arm (principal); D17.23 Benign lipomatous neoplasm of skin and subcutaneous tissue of right leg; E78.5 Hyperlipidemia, unspecified; E66.01 Morbid (severe) obesity due to excess calories; Z68.34 Body mass index [BMI] 34.0-34.9, adult; G47.33 Obstructive sleep apnea (adult) (pediatric); Z80.0 Family history of malignant neoplasm of digestive organs; Z87.891 Personal history of nicotine dependence
CPT/HCPCS: 10160; 11401; 12031; 88304; 88305; J0360; J0690; J1885; J2250; J2704; J3010; J3490; J7030

== ENCOUNTER → 2024-04-28 09:49 | Outpatient (BNVA) | payer OTHER, MEDICAID, SELFPAY | PROVIDERS: PCP Family Medicine; Visit Provider Specialist | DX: M75.121 Complete rotator cuff tear or rupture of right shoulder, not specified as traumatic; M19.011 Primary osteoarthritis, right shoulder; M25.811 Other specified joint disorders, right shoulder | CPT/HCPCS: 36415; 80053; 81001; 85025 ==

== ENCOUNTER 2024-05-20 13:47 | Outpatient (CLI) | payer MEDICAID, SELFPAY | END 2024-05-20 13:48 | disposition home or self-care (01) | LOC: SLEEP 13:49 | PROVIDERS: PCP Family Medicine; Visit Provider Family Medicine | DX: G47.33 Obstructive sleep apnea (adult) (pediatric) (principal); G47.36 Sleep related hypoventilation in conditions classified elsewhere | CPT/HCPCS: G0399 ==

== ENCOUNTER 2024-05-22 09:11 | Day surgery (SDC) | payer OTHER, MEDICAID, SELFPAY ==
[2024-05-22] VITALS (10 sets, daily range): BP systolic 102–137; BP diastolic 71–94; PULSE 92–100; RESP 14–23; TEMP 36.2–37; O2SAT 90–98; BMI 34.5
[2024-05-22] MEDS: sodium chloride 0.9% 1,000 ML 30 ML IV (09:43)
[2024-05-22] MEDS: acetaminophen 1,000 MG/100 ML PIGGYBACK 400 MG IV (09:43)
[2024-05-22] MEDS: gabapentin 300 mg Capsule PO (09:44)
[2024-05-22] MEDS: CELEcoxib 200 mg Capsule 400 MG PO (09:44)
--- NOTE | 2024-05-22 10:06 | W.PM.OPSUD ---
Surgery/Procedure H&P Update DATE OF PROCEDURE: May 22, 2024 DATE H&P PERFORMED: 05/14/24 H&P UPDATE INFORMATION: I have reviewed H&P completed within last 30 days, I have examined patient prior to procedure, No changes to prior documentation and H&P is in [facility] EMR on date indicated PRIMARY INDICATION FOR PROCEDURE: MRI, noncontrast, of the right shoulder was obtained on January 29, 2024. This was read by Dr. Virginia Barksdale. Findings on the study include marked acromioclavicular joint arthropathy with a 10 mm osteophyte encroaching upon the supraspinatus muscle and tendon. There is downsloping of the acromion with marked subacromial impingement. There is a complete versus near complete full-thickness tear of the distal supraspinatus tendon with residual bursal surface tendon possibly present. There is also subscapularis tendinopathy with narrowing of the coracohumeral interval. The rotator cuff is intact, aside from as noted with the supraspinatus tendon. There is a poorly visualized biceps tendon at the rotator cuff interval. PLANNED PROCEDURE: Operation Date: 05/22/24 10:50 Proposed Procedures p Rotator Cuff Repair - Open(Right) - Zena Triplett MD s Acromioplasty(Right) - Zena Triplett MD s Distal Clavicle Resection(Right) - Zena Triplett MD Related Problem List Diagnoses (1) Right rotator cuff tear: Qualifiers: Rotator cuff tear extent: complete Rotator cuff tear trauma status: nontraumatic Qualified Code(s): M75.121 - Complete rotator cuff tear or rupture of right shoulder, not specified as traumatic (2) AC joint arthropathy: (3) Impingement of right shoulder:
[2024-05-22] MEDS: ceFAZolin 2,000 mg SDV 2000 MG IVP (10:55)
--- NOTE | 2024-05-22 10:57 | PC.NURSE ---
1045: Patient placed on monitor and 2lpm via n/c. Right shoulder block performed by SHIV. 20 ml of 1/2% percent ropivicaine injected using ultrasound guidance.
--- NOTE | 2024-05-22 11:13 | ANES.PREANE2 ---
Pre-Anesthetic Assessment Height/Weight: Height 1.8 m Weight 112.491 kg Temp Pulse Resp BP Pulse Ox O2 Del Method 98.6 F 94 18 136/82 95 Room Air 05/22/24 09:27 05/22/24 09:27 05/22/24 09:27 05/22/24 09:27 05/22/24 09:27 05/22/24 09:34 Operation Date: 05/22/24 10:50 Proposed Procedures p Rotator Cuff Repair - Open(Right) - Zena Triplett MD s Acromioplasty(Right) - Zean Triplett MD s Distal Clavicle Resection(Right) - Zena Triplett MD Familial anesthetic complications: NOne Was Beta Rudi taken within 24 hours: N/A Was Clonidine taken within 24 hours: N/A Last intake: Intake Last Liquid Date 05/21/24 Last Liquid Time 23:00 Last Solid Date 05/21/24 Last Solid Time 21:30 Social No alcohol and No tobacco Exam alert, oriented x 3, clear to auscultation bilaterally and regular rate & rhythm Airway Mallampati: Class IV Dentition: full Comments: Comments: 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 Pulmonary Sleep Apnea CV/HEM Hypertension Metabolic Hyperlipidemia and Morbid Obesity Anesthetic Plan ASA status: 3 Anesthesia: General and Regional (specify below) Risk of > 500 ml blood loss (7ml/kg in children): No Medications/Allergies Home Medications Medication Instructions Recorded Confirmed Last Taken Type fluticasone propionate 50 2 spray intranasal DAILY #16 grams 08/14/22 05/21/24 03/03/24 Rx mcg/actuation nasal spray,suspension (Flonase Allergy Relief) Intraoperative Neurophysiological #1 ea 10/11/22 04/28/24 Unknown Rx Testing albuterol sulfate 90 mcg/actuation 1 inh inhalation QID PRN shortness 10/17/22 05/21/24 Unknown Rx aerosol inhaler of breath or wheezing #8.5 grams acetaminophen 650 mg 650 mg PO Q8H PRN pain #90 tabs 01/02/24 05/21/24 Unknown Rx tablet,extended release (Tylenol Arthritis Pain) atorvastatin 20 mg tablet 20 mg PO DAILY #90 tabs 01/02/24 05/21/24 05/21/24 Rx cyclobenzaprine 10 mg tablet 10 mg PO TID PRN muscle spasm #60 01/02/24 05/21/24 Unknown Rx tabs aripiprazole 10 mg tablet 10 mg PO DAILY #90 tabs 01/31/24 05/21/24 05/21/24 Rx losartan 50 mg tablet 50 mg PO DAILY #90 tabs 01/31/24 05/21/24 05/21/24 Rx cephalexin 500 mg capsule 500 mg PO QID #40 caps 05/07/24 05/21/24 05/21/24 Rx Allergies Allergy/AdvReac Type Severity Reaction Status Date / Time paroxetine AdvReac Intermediate ADR-Dizzine Verified 05/21/24 12:28 ss Current Medications Generic Name Dose Route Start Last Admin Trade Name Freq PRN Reason Stop Dose Admin Sodium Chloride 1,000 mls @ 30 mls/hr 05/22/24 09:30 05/22/24 09:43 Sodium Chloride 0.9% IV 05/23/24 09:29 30 mls/hr .Q24H JD Administration PFSH Anesthesia Medical History MARILYNN (obstructive sleep apnea) intolerant of CPAP Tobacco dependence chews Essential hypertension H/O viral illness Peripheral neuropathy all extremities Bipolar disorder History of femoral angiogram Family history of colon cancer Hyperlipidemia Surgical History History of colonoscopy with polypectomy (08/24/21) H/O esophagogastroduodenoscopy (08/24/21) H/O hemorrhoidectomy Family History Grandmother No problems noted. Grandfather Cancer lung Hyperlipidemia Hypertension Stroke Family/Other Cancer Uncle[place] Mother Cancer small cell lung Family/Other Cancer Aunt-breast Denies family history of Diabetes CAD (coronary artery disease) Clotting disorder Dementia Chronic kidney disease (CKD) Anesthesia complication Bleeding disorder Lung disease Social History Smoking and tobacco/nicotine status: unknown if used tobacco/nicotine Second hand smoke exposure: No Alcohol intake: former Substance/Drug Use: never Caregiver/support person: No Lives independently: Yes Household members: spouse and children Marital status: Highest education level completed: GED or Equivalent service: No Current occupational status: employed Current occupation: [employer] Do you think of yourself as: Straight/Heterosexual Current gender identity: Male Data Anesthesia Cardiac Studies: No Data to Display
--- NOTE | 2024-05-22 11:15 | ANES.PROC ---
Anesthesia Procedures Procedure/Date: 05/22/24 Nerve Block ^: Nerve Block 1: Main Anesthesia: general anesthesia Time Out Performed: Yes Consent: requested by attending/covering physician, from patient, from other, risks and benefits reviewed and patient agrees to proceed Nerve block location: interscalene (R) Anesthesia monitors applied: pulse oximetry, EKG, BP cuff and oxygen Nerve block position: semi sitting Anesthetic Used: ropivicaine 0.5% (20 ml) and with decadron (4 mg) Ultrasound used to: recognize landmarks, visualize and ID brachial plexus, in supraclavicular region and visualize and ID interscalene groove Nerve Stimulator Used?: No Interscalene/Femoral BLK: 2 stimuplex 22 g needle used for position and inplane approach, visualize local anesthetic spread and no vascular puncture identified Injection: neg aspiration of heme Patient Tolerated Procedure: well Complications: none
[2024-05-22] MEDS: ceFAZolin 1,000 mg SDV 1000 MG IRRIGATION (11:55)
--- NOTE | 2024-05-22 13:00 | PM.OP ---
Operative Report Date of procedure: May 22, 2024 Pre-op diagnosis: Right shoulder impingement with possible rotator cuff tear and acromioclavicular joint osteoarthritis Post-op diagnosis: Right shoulder impingement with no rotator cuff tear, significant acromioclavicular joint osteoarthritis, and bursitis. Post-op findings: Impingement without complete rotator cuff tear, significant bursitis and tendinitis of the rotator cuff, severe degenerative osteoarthritis of the right. Procedure done: Open right acromioplasty with distal clavicle resection and bursectomy Implants: None Specimens removed/disposition: None Pathology: None Surgeon: Zena Triplett MD Pattern Perforating Machine Operator: Madyson Stark, nurse practitioner, whose services were required for completion of the surgical procedure, positioning of the arm, retraction of soft tissues and completion of the surgical procedure Anesthesia: General (Intubated with interscalene block) Estimated blood loss (mL): 50 IV fluids (mL): 700 Urine output (mL): 0 (No Freed) Complications: None Findings: As above Condition: stable Disposition: PACU (Then return to same-day surgery for discharge to home) Brief History: This 43-year-old gentleman presents after evaluation of right shoulder pain. He had nerve conduction studies as well as an EMG ordered and reviewed prior to surgery secondary to symptoms which were concerning for possible cervical pathology as well. At his last visit, pain was 8 out of 10. He had numbness and tingling in his hand, but nerve conduction studies were negative for carpal tunnel. After discussion with the patient, he wished to proceed with an open rotator cuff repair if a tear was found at the time of surgery, acromioplasty, and distal clavicle resection. Risks and complications were discussed with the patient in the office. Consents were signed and questions were answered. He was seen and evaluated by Dr. Min on May 14 for preoperative optimization. Procedure: The patient was brought to the operating theater and underwent general intubated anesthesia, ASA 3 with supplemental interscalene block.. The patient was placed in a beachchair position and subsequently the right upper extremity was prepped and draped in the usual fashion utilizing DuraPrep. The arm was draped free. A surgical pause was performed prior to commencement of the surgical procedure. At the time of the surgical pause, we confirmed the site and side of surgery as well as administration of appropriate preoperative antibiotics Ancef 2 g. MRI was also reviewed at that time. Following the surgical pause, an incision was made at approximately the level of the acromioclavicular joint extending across the anterolateral corner of the acromion and distally as necessary. Care was taken to avoid injury to the axillary nerve by limiting the distal extent of the incision. Dissection continued through skin and soft tissues using a scalpel. Hemostasis was obtained using electrocautery. Soft tissues were elevated off the acromion and the acromioclavicular joint. There was noted to be significant subacromial impingement with a large subacromial osteophyte as well. An acromioplasty was then accomplished using a combination of a saw and a power rasp. With this, we were able to remove compression on the rotator cuff caused by the acromion. The rotator cuff was then evaluated to look for tears. Shoulder was placed through full range of motion. The cuff was also palpated with my finger and with a Hemlock. There was no evidence of rotator cuff tear. There was an indentation in the rotator cuff at the location of the patient's large inferior osteophyte. Attention was then directed to the acromioclavicular joint which was noted to be quite arthritic. Resection was accomplished uneventfully using a saw and the power rasp. I was palpated to ensure there was no further osteophyte under the distal clavicle. After it was resected, the undersurface of the clavicle was smoothed. Both the undersurface and upper surface of the clavicle were smoothed using a power rasp. This was accomplished, and the area was again palpated to ensure there were no further osteophyte and attention was directed to closure. The wound was irrigated and closure was accomplished with 0 Vicryl in the capsular tissues overlying the acromioclavicular joint area as well as over the acromion and down into the deltoid muscle. 3-0 Monocryl was used to close the subcutaneous tissues followed by 4-0 Monocryl subcuticular closure. This was followed by Dermabond, Steri-Strips, and an OpSite. The patient was placed in a sling and was returned to the recovery room in satisfactory condition. The patient will be discharged to home to follow-up in the office as scheduled. There were no complications and no specimens. Related Problem List Diagnoses (1) Impingement of right shoulder: (2) AC joint arthropathy: (3) Tendinitis of right rotator cuff:
== END 2024-05-22 14:07 | disposition home or self-care (01) ==
PROVIDERS: PCP Family Medicine; Visit Provider Specialist
PROC: (CPT 23130; 2024-05-22 10:30)
PROC: (CPT 23120; 2024-05-22 10:30)
DX: M75.41 Impingement syndrome of right shoulder (principal); M19.011 Primary osteoarthritis, right shoulder; M75.51 Bursitis of right shoulder; M77.8 Other enthesopathies, not elsewhere classified; Z79.899 Other long term (current) drug therapy; Z88.8 Allergy status to other drugs, medicaments and biological substances; F17.220 Nicotine dependence, chewing tobacco, uncomplicated; I10 Essential (primary) hypertension; G47.33 Obstructive sleep apnea (adult) (pediatric); E78.5 Hyperlipidemia, unspecified
CPT/HCPCS: 23130; 23120; J0131; J0690; J1100; J2405; J2704; J2795; J3010; J3490; J7030

== ENCOUNTER 2024-06-17 21:59 | Emergency (ER) | payer OTHER, MEDICAID, SELFPAY ==
[2024-06-17 22:09] VITALS: BP 141/84; PULSE 105; RESP 16; TEMP 36.7; O2SAT 95; BMI 35.8
--- NOTE | 2024-06-17 23:06 | XRR_ITS ---
PROCEDURE INFORMATION: Exam: XR Right Shoulder Exam date and time: 06/17/2024 11:30 PM Age: 43 years old Clinical indication: Pain; Right; Prior surgery; Surgery date: <1 month; Surgery type: Debridement of the shoulder joint; Additional info: Post-op pain TECHNIQUE: Imaging protocol: Radiologic exam of the right shoulder. Views: 2 or more views. COMPARISON: CR XR shoulder RT min 2V* [id number] 02/17/2024 11:46 PM FINDINGS: Bones/joints: Significant widening of acromioclavicular interval measuring up to 1.0 cm, new from prior study. No acute displaced fracture or dislocation. Soft tissues: Soft tissues within normal limits. XR/XR shoulder RT min 2V* [id number] IMPRESSION: 1. No acute displaced fracture or dislocation. 2. Significant widening of the acromioclavicular interval with interval removal of previously seen spurring. Findings likely represent postsurgical changes, acute joint separation less likely.
[2024-06-17] MEDS: ketorolac 60 mg/2 mL INJ IM (23:13)
[2024-06-17] MEDS: dexamethasone 10 mg/mL INJ IM (23:13)
[2024-06-17] MEDS: orphenadrine 30 mg/mL Inj 2 mL 60 MG IM (23:13)
--- NOTE | 2024-06-17 23:27 | ED_ITS ---
HPI - Extremity Problem General: Chief complaint: Extremity Injury, Upper Stated complaint: right shoulder post surgury pain swelling weak Time Seen by Provider: 06/17/24 22:58 Source: patient Mode of arrival: ambulatory Limitations: no limitations History of Present Illness: Patient is a 43-year-old male who presents the emergency department complaining of right shoulder pain since he had surgery on 05/22 of this year. Patient had surgery for right shoulder impingement with possible rotator cuff tear and AC joint osteoarthritis, during operation was also found to have significant bursitis and severe degenerative changes. Patient states that he has been having steadily worsening pain as well as weakness to the right upper extremity, stating that he can barely abduct his arm secondary to weakness. Also noting some numbness going down his right arm. States that he took the prescribed oxycodone for pain but otherwise has not been taking anything else recently. He recently had follow-up appointment on 06/04 with no complications reported, only noting minimal pain at that time. He had discontinued use of the sling the patient states he has been trying to increase range of motion and physical therapy but has been unable to secondary to the pain and weakness. Denies any chest pain, shortness of breath, fevers, vomiting or diarrhea. No other systemic signs of illness. Vitals at this time unremarkable. MD Complaint: joint pain Onset (ago): week(s) Pain Consistency: constant Location: right and upper extremity Radiation: distal Relieving factors: nothing Exacerbating factors: range of motion Associated symptoms: Deny chest pain, fever(s) or rash Related Data Previous Rx's ?Medication ?Instructions ?Recorded fluticasone propionate 50 2 spray intranasal DAILY #16 grams 08/14/22 mcg/actuation nasal spray,suspension (Flonase Allergy Relief) Intraoperative Neurophysiological #1 ea 10/11/22 Testing albuterol sulfate 90 mcg/actuation 1 inh inhalation QI D PRN shortness 10/17/22 aerosol inhaler of breath or wheezing #8.5 g abhinav acetaminophen 650 mg 650 mg PO Q8H PRN pain #90 t abs 01/02/24 tablet,extended release (Tylenol Arthritis Pain) atorvastatin 20 mg tablet 20 mg PO DAILY #90 tabs 12/22 05/16 cyclobenzaprine 10 mg tablet 10 mg PO TID PRN muscle s pasm #60 01/02/24 tabs aripiprazole 10 mg tablet 10 mg PO DAILY #90 tabs 01/21 losartan 50 mg tablet 50 mg PO DAILY #90 tabs 01/21 cephalexin 500 mg capsule 500 mg PO QID #40 caps 05/07 CPAP mask, tubing, supplies #1 ea 05/26/24 CPAP 6-16 cm mmHg setting with #1 ea 05/27/24 tubing and supplies Allergies Allergy/AdvReac Type Severity Reaction Status Date / Time paroxetine AdvReac Intermediate ADR-Dizzine Verified 06/17/24 22:13 ss Review of Systems General: Reports: 10 or more systems reviewed and unremarkable except in HPI and below Const: Denies: fever(s) or chills Card: Denies: chest pain Resp: Denies: dyspnea or productive cough GI: Denies: abdominal pain, nausea, vomiting or diarrhea : Denies: flank pain Musc: Reports: joint pain and muscle weakness; Denies: neck pain, back pain, extremity pain, extremity swelling, joint swelling, joint redness, joint warmth or limited range of motion Skin/Breast: Denies: rash Neuro: Reports: numbness in extremities and weakness in extremities; Denies: headache(s) PFSH ED PFSH: Medical History MARILYNN (obstructive sleep apnea) intolerant of CPAP Tobacco dependence chews Essential hypertension H/O viral illness Peripheral neuropathy all extremities Bipolar disorder History of femoral angiogram Family history of colon cancer Hyperlipidemia Surgical History S/P shoulder surgery Date of procedure: May 22, 2024 Pre-op diagnosis: Right shoulder impingement with possible rotator cuff tear and acromioclavicular joint osteoarthritis Procedure done: Open right acromioplasty with distal clavicle resection and bursectomy Surgeon: Zena Triplett MD History of colonoscopy with polypectomy (08/24/21) H/O esophagogastroduodenoscopy (08/24/21) H/O hemorrhoidectomy Family History Grandmother No problems noted. Grandfather Cancer lung Hyperlipidemia Hypertension Stroke Family/Other Cancer Uncle[place] Mother Cancer small cell lung Family/Other Cancer Aunt-breast Denies family history of Diabetes CAD (coronary artery disease) Clotting disorder Dementia Chronic kidney disease (CKD) Anesthesia complication Bleeding disorder Lung disease Social History Smoking and tobacco/nicotine status: never used tobacco/nicotine Second hand smoke exposure: No Alcohol intake: former Substance/Drug Use: never Caregiver/support person: No Lives independently: Yes Household members: spouse and children Marital status: Highest education level completed: GED or Equivalent service: No Current occupational status: employed 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 Do you think of yourself as: Straight/Heterosexual Current gender identity: Male Physical Exam Const: COMMON NORMALS: no acute distress, patient oriented x3, no limitations, healthy appearing, alert and well nourished HENMT: COMMON NORMALS: normocephalic and atraumatic HEAD & SCALP: normocephalic and atraumatic Neck/C-Spine: COMMON NORMALS: full ROM, supple and no meningeal signs Resp: COMMON NORMALS: normal respiratory effort, No use of accessory muscles and clear to auscultation bilaterally AUSCULTATION: clear to auscultation bilaterally Cardio: COMMON NORMALS: regular rate and regular rhythm RATE: regular rate RHYTHM: regular rhythm Extremity: COMMON NORMALS: capillary refill normal, no joint enlargement and no clubbing, cyanosis or edema NARRATIVE EXTREMITY EXAM: Postoperative scar to right shoulder with no complications apparent. Limited range of motion, specifically with abduction at the right shoulder secondary to pain. Tendon reflexes intact. Radial pulse palpable. No obvious swelling of the right upper extremity. No bruising or coolness to the right upper extremity. Tenderness to palpation to the right lateral shoulder. Neuro: COMMON NORMALS: patient oriented x3, moves all extremities, no focal motor deficits, no sensory deficits noted and deep tendon reflexes 2+ bilaterally SENSORIUM/ORIENTATION: Yes alert MENINGEAL SIGNS: Yes no meningeal signs Skin: COMMON NORMALS: no rashes or lesions noted GENERAL SKIN EXAM: no rashes or lesions noted Course Vital Signs: Vital signs: Vital Signs Temperature 98.1 F 06/17/24 22:09 Pulse Rate 105 H 06/17/24 22:09 Respiratory Rate 16 06/17/24 22:09 Blood Pressure 141/84 06/17/24 22:09 Pulse Oximetry 95 06/17/24 22:09 MDM - Extremity (Nontraumatic) Medical Decision Making Patient presented with postoperative right shoulder pain. No significant abnormalities noted on physical exam, neurovascular status intact, postoperative incision seemed healing well. Patient was given IM Toradol, Decadron, and Norflex here, upon recheck states that his pain had essentially been unchanged. X-ray showing no acute fracture or dislocation, widening at the AC interval but this is likely postsurgical. Patient informed to follow back up with his surgeon for reevaluation of his increased pain, he may require further imaging or outpatient testing. Patient will be allowed discharged home, return precautions given. Medical Records I reviewed the patient's medical records. Lab Data Radiology Impressions Shoulder X-Ray 06/17/24 23:06 IMPRESSION: 1. No acute displaced fracture or dislocation. 2. Significant widening of the acromioclavicular interval with interval removal of previously seen spurring. Findings likely represent postsurgical changes, acute joint separation less likely. All radiology interpretation(s) finalized by discharge Discharge Plan Discharge Patient Disposition: Home Clinical Impression: Acute postoperative pain of right shoulder Condition: Stable Prescriptions: No Action fluticasone propionate [Flonase Allergy Relief] 50 mcg/actuation spray,suspension 2 spray intranasal DAILY Qty: 16 3RF Rx Instructions: administer into each nostril atorvastatin 20 mg tablet 20 mg PO DAILY Qty: 90 1RF cyclobenzaprine 10 mg tablet 10 mg PO TID PRN (Reason: muscle spasm) Qty: 60 0RF acetaminophen [Tylenol Arthritis Pain] 650 mg tablet extended release 650 mg PO Q8H PRN (Reason: pain) Qty: 90 1RF aripiprazole 10 mg tablet 10 mg PO DAILY Qty: 90 1RF losartan 50 mg tablet 50 mg PO DAILY Qty: 90 1RF cephalexin 500 mg capsule 500 mg PO QID Qty: 40 0RF (DME) Intraoperative Neurophysiological Testing See Rx Instructions .Route .MEDSUPPLY Qty: 1 0RF Rx Instructions: As directed albuterol sulfate 90 mcg/actuation HFA aerosol inhaler 1 inh inhalation QID PRN (Reason: shortness of breath or wheezing) Qty: 8.5 1RF (DME) CPAP mask, tubing, supplies See Rx Instructions .ROUTE .MEDSUPPLY Qty: 1 1RF Rx Instructions: As directed (DME) CPAP 6-16 cm mmHg setting with tubing and supplies See Rx Instructions .ROUTE .MEDSUPPLY Qty: 1 0RF Rx Instructions: As directed Discharge Orders: Discharge ED (Routine); Ordered 06/18/24 Ordered By: Mike Tran Referrals: Nicolas Braun MD [Primary Care Provider] - Activity Restrictions/Additional Instructions: Please call in the morning to schedule appointment with orthopedist as we discussed. Continue home pain medications. Range of motion exercises as tolerated. Heat for added relief. Return with any new or worsening. Print Language: Maltese Coding Level of Care Code ED Security Solutions Architect for Ricky Verdin
[2024-06-18 00:14] VITALS: BP 132/79; PULSE 101; RESP 16; O2SAT 96
[2024-06-18] MEDS: HYDROcodone-acetaminophen 7.5-325 mg Tablet 1 TAB PO (00:18)
[2024-06-18 00:41] VITALS: BP 132/79; PULSE 101; O2SAT 96
== END 2024-06-18 00:42 | disposition home or self-care (01) ==
PROVIDERS: Emergency Provider Physician Assistant; PCP Family Medicine
DX: M25.511 Pain in right shoulder (principal); E78.5 Hyperlipidemia, unspecified; F17.220 Nicotine dependence, chewing tobacco, uncomplicated; I10 Essential (primary) hypertension; G89.18 Other acute postprocedural pain
CPT/HCPCS: 73030; 96372; 99284; J1100; J1885; J2360

== ENCOUNTER 2024-07-01 11:07 | Observation (INO) | payer OTHER, MEDICAID, SELFPAY ==
[2024-07-01] VITALS (14 sets, daily range): BP systolic 105–176; BP diastolic 57–126; PULSE 77–100; RESP 13–18; TEMP 36.3–36.6; O2SAT 91–95; BMI 35.6; BMI 36.5
--- NOTE | 2024-07-01 11:17 | CT_ITS ---
WS: [id number] CT HEAD TECHNIQUE: Noncontrast CT of the head obtained from the skullbase to the vertex. CLINICAL INFORMATION: Symptoms of acute stroke COMPARISON: 2018 DLP: [address] scans at [facility] use at least one of these dose optimization techniques: automated exposure control; mA and/or kV adjustment per patient size (includes targeted exams where dose is matched to clinical indication); or iterative reconstruction. FINDINGS: No evidence of intracranial hemorrhage or mass effect. Ventricular system and basal cisterns are patent. No extra-axial fluid collections. No evidence of mass or mass effect. Normal mahoney-white differentiation. Mild parenchymal volume loss in the cerebellum. This is similar compared to 2018 Paranasal sinuses and mastoid air cells are well aerated. .Normal visualized soft tissues. CT/CT head thrombolytic 68414 IMPRESSION: 1. No evidence of intracranial hemorrhage or mass effect. 2. No acute intracranial findings. Notified Marcelle Begum MD at 07/01/2024 11:31 AM.
--- NOTE | 2024-07-01 11:17 | CT_ITS ---
WS: [id number] CTA HEAD AND NECK TECHNIQUE: Contrast enhanced CTA of the head and neck with coronal and sagittal reformatted images and maximum intensity projection (MIP) images. NASCET criteria utilized. CLINICAL INFORMATION: cva COMPARISON: None. DLP: 502.[address] scans at [facility] use at least one of these dose optimization techniques: automated exposure control; mA and/or kV adjustment per patient size (includes targeted exams where dose is matched to clinical indication); or iterative reconstruction. FINDINGS: RIGHT: No significant RIGHT ICA stenosis. LEFT: No significant LEFT ICA stenosis. Proximal subclavian arteries are patent. INTRACRANIAL CTA: Codominant and patent vertebral arteries bilaterally. LEFT vertebral artery originates from the aortic arch. Proximal basilar artery is patent. Persistent LEFT ELEVATOR EXAMINER AND ADJUSTER. Normal vascularity to the ELEVATOR EXAMINER AND ADJUSTER territory bilaterally. Both ICAs are patent at the skull base. Normal vascularity to the JEFF and MCA territories bilaterally. No evidence of proximal flow-limiting stenosis or aneurysm. Retention cyst or polyp RIGHT maxillary sinus measuring 1.8 cm. Mastoid air cells are well aerated. CT/CT angio headneck* [id number] IMPRESSION: 1. No significant cervical ICA stenosis. 2. No flow-limiting intracranial stenosis. 3. LEFT vertebral artery originates from the aortic arch. Codominant and paten t vertebral arteries bilaterally. 4. Proximal subclavian arteries are patent.
--- NOTE | 2024-07-01 11:17 | ECG_ITS ---
[facility] Test Date: 2024-07-01 Pat Name: Chester To Department: Room: Gender: Male Unit Nurse: : 1980 Requested By: Marcelle Begum Order Number: [id number] Avni MD: Azar Acuna M.D. Measurements Intervals [place] Rate: 80 P: 50 [place]: 163 QRS: 24 QRSD: 101 T: 11 QT: 391 QTc: 452 Interpretive Statements SINUS RHYTHM Compared to ECG 07/14/2021 22:30:40 No significant changes Electronically Signed On 07-04-2024 19:15:37 CDT by Azar Acuna M.D. [email or web address]
--- NOTE | 2024-07-01 11:19 | ED_ITS ---
HPI - Dizziness 2 General: Chief Complaint: Dizziness Stated Complaint: n/v, weakness, dizzy Time Seen by Provider: 07/01/24 11:15 Source: patient Mode of arrival: ambulatory Limitations: no limitations History of Present Illness: HPI Narrative: 43-year-old male states that he woke up this morning with severe vertigo. States he went to bed last night around 2 AM states he woke up he is felt like the room is been spinning he states that he has no worsening with movement. States has had mini strokes in the past some right sided facial droop here but he states that is from his old mini stroke he has no other symptoms denies any weakness he had some mild slurred speech that people in the room states is a little worse than his typical denies headache or fever Associated symptoms: Denies chest pain, chills, headache(s), nausea or vomiting Related Data Previous Rx's ?Medication ?Instructions ?Recorded acetaminophen 650 mg 650 mg PO Q8H PRN pain #90 t abs 01/02/24 tablet,extended release (Tylenol Arthritis Pain) atorvastatin 20 mg tablet 20 mg PO DAILY #90 tabs 12/22 05/16 aripiprazole 10 mg tablet 10 mg PO DAILY #90 tabs 01/21 losartan 50 mg tablet 50 mg PO DAILY #90 tabs 01/21 Allergies Allergy/AdvReac Type Severity Reaction Status Date / Time paroxetine AdvReac Intermediate ADR-Dizzine Verified 06/17/24 22:13 ss Review of Systems 2 Const: Denies: fever(s), chills, body aches or change in appetite ENMT: Denies: throat pain or dental pain Card: Denies: chest pain Resp: Denies: dyspnea GI: Denies: abdominal pain, nausea, vomiting or diarrhea Musc: Denies: neck pain or back pain Skin/Breast: Denies: rash Neuro: Reports: vertigo; Denies: headache(s) PFSH ED 2 PFSH: Medical History MARILYNN (obstructive sleep apnea) intolerant of CPAP Tobacco dependence chews Essential hypertension H/O viral illness Peripheral neuropathy all extremities Bipolar disorder History of femoral angiogram Family history of colon cancer Hyperlipidemia Surgical History S/P shoulder surgery Date of procedure: May 22, 2024 Pre-op diagnosis: Right shoulder impingement with possible rotator cuff tear and acromioclavicular joint osteoarthritis Procedure done: Open right acromioplasty with distal clavicle resection and bursectomy Surgeon: Zena Triplett MD History of colonoscopy with polypectomy (08/24/21) H/O esophagogastroduodenoscopy (08/24/21) H/O hemorrhoidectomy Family History Grandmother No problems noted. Grandfather Cancer lung Hyperlipidemia Hypertension Stroke Family/Other Cancer Uncle[place] Mother Cancer small cell lung Family/Other Cancer Aunt-breast Denies family history of Diabetes CAD (coronary artery disease) Clotting disorder Dementia Chronic kidney disease (CKD) Anesthesia complication Bleeding disorder Lung disease Social History Smoking and tobacco/nicotine status: never used tobacco/nicotine Second hand smoke exposure: No Alcohol intake: former Substance/Drug Use: never Caregiver/support person: No Lives independently: Yes Household members: spouse and children Marital status: Highest education level completed: GED or Equivalent service: No Current occupational status: employed Current occupation: [email or web address] Do you think of yourself as: Straight/Heterosexual Current gender identity: Male Physical Exam 2 Const: COMMON NORMALS: patient oriented x3 and healthy appearing HENMT: COMMON NORMALS: normocephalic and atraumatic HEAD & SCALP: n ormocephalic and atraumatic Eye: COMMON NORMALS: Equal, round and reactive pupils present and conjunctivae normal CONJUNCTIVA: Yes conjunctivae normal PUPIL: Yes Equal, round and reactive pupils present OTHER: Nystagmus when looking to the left Neck/C-Spine: COMMON NORMALS: full ROM and supple Chest: COMMONS NORMALS: normal inspection of the chest and normal palpation of entire chest wall Resp: COMMON NORMALS: normal respiratory effort, No retractions, No use of accessory muscles and clear to auscultation bilaterally AUSCULTATION: clear to auscultation bilaterally Cardio: COMMON NORMALS: regular rate, regular rhythm and No murmurs present (Cardio) RATE: regular rate RHYTHM: regular rhythm Extremity: COMMON NORMALS: normal to inspection and full ROM Neuro: COMMON NORMALS: patient oriented x3 and moves all extremities C RANIAL NERVES: Yes CN normal except as noted Psych: COMMON NORMALS: mental status grossly normal, Normal thought process present and cooperative THOUGHT PROCESS: Normal thought process present Skin: COMMON NORMALS: no rashes or lesions noted and no wounds GENERAL SKIN EXAM: no rashes or lesions noted Course 2 Vital Signs: Vital signs: Vital Signs Temperature 97.3 F L 07/01/24 11:11 Pulse Rate 99 07/01/24 14:00 Respiratory Rate 17 07/01/24 11:11 Blood Pressure 145/104 07/01/24 14:00 Pulse Oximetry 92 07/01/24 14:00 Oxygen Delivery Me thod Room Air 07/01/24 14:00 MDM - Dizziness Medical Decision Making Patient presents here with vertigo concerns for possible posterior stroke CT CTA are negative he is not a lytic candidate as he is out of the window his last known normal was 2 AM patient was seen by neurologist also spoke to the hospitalist will admit at this time. Medical Records I reviewed the patient's medical records. Lab Data I reviewed the patient's lab results. 07/01/24 12:02 07/01/24 14:[address] 07/01/24 11:17 IMPRESSION: 1. No evidence of intracranial hemorrhage or mass effect. 2. No acute intracranial findings. Notified Marcelle Begum MD at 07/01/2024 11:31 AM. Head/Neck CTA 07/01/24 11:17 IMPRESSION: 1. No significant cervical ICA stenosis. 2. No flow-limiting intracranial stenosis. 3. LEFT vertebral artery originates from the aortic arch. Codominant and patent vertebral arteries bilaterally. 4. Proximal subclavian arteries are patent. Chest X-Ray 07/01/24 11:28 IMPRESSION: No acute findings. Laboratory Results WBC 5.62 10^3/uL (3.29-11.43) 07/01/24 12:02 RBC 5.00 10^6/uL (3.85-5.65) 07/01/24 12:02 Hgb 14.70 g/dL (11.27-16.99) 07/01/24 12:02 Hct 45.0 % (37-53) 07/01/24 12:02 MCV 90.0 fl (82-101) 07/01/24 12:02 MCH 29.4 pg (27-33) 07/01/24 12:02 MCHC 32.7 g/dL (30-55) 07/01/24 12:02 RDW 12.7 % (12.1-15.1) 07/01/24 12:02 Plt Count 191 10^3/cmm (157-399) 07/01/24 12:02 MPV 10.5 fL (7.4-10.4) H 07/01/24 12:02 Neut % (Auto) 76.4 % 07/01/24 12:02 Lymph % (Auto) 14.8 % 07/01/24 12:02 Barber % (Auto) 6.0 % 07/01/24 12:02 Eos % (Auto) 0.7 % 07/01/24 12:02 Baso % (Auto) 1.2 % 07/01/24 12:02 Neut # (Auto) 4.29 10^3/uL (1.8-7.7) 07/01/24 12:02 Lymph # (Auto) 0.8 10^3/uL (0.8-4.8) 07/01/24 12:02 Barber # (Auto) 0.3 10^3/uL (0.2-0.9) 07/01/24 12:02 Eos # (Auto) 0.0 10^3/uL (0.0-0.8) 07/01/24 12:02 Baso # (Auto) 0.1 10^3/uL (0.0-0.1) 07/01/24 12:02 Nucleated RBC % (auto) 0 % 07/01/24 12:02 Nucleated RBCs # 0.0 /100WBC 07/01/24 12:02 PT 13.50 SECONDS (12.1-14.9) 07/01/24 14:13 INR 0.97 (0.8-1.2) 07/01/24 14:13 APTT 25.0 SECONDS (23.9-36.7) 07/01/24 14:13 Sodium 135 mmol/L (136-145) L 07/01/24 14:13 Potassium 4.6 mmol/L (3.5-5.1) 07/01/24 14:13 Chloride 102 mmol/L (98-107) 07/01/24 14:13 Carbon Dioxide 22 mmol/L (22-29) 07/01/24 14:13 Anion Gap 15.6 (5-19) 07/01/24 14:13 BUN 13 mg/dL (6-20) 07/01/24 14:13 Creatinine 0.7 mg/dL (0.7-1.2) 07/01/24 14:13 GFR Calculation 122.0 mL/min (90-130) 07/01/24 14:13 Glucose 121 mg/dL (65-115) H 07/01/24 14:13 POC Glucose 136 mg/dL (70-110) H 07/01/24 11:19 Calculated Osmolality 281 mOsm/kg (285-295) L 07/01/24 14:13 Calcium 9.2 mg/dL (8.5-10.5) 07/01/24 14:13 Total Bilirubin 0.4 mg/dL (0.15-1.2) 07/01/24 14:13 AST 32 U/L (0-40) 07/01/24 14:13 ALT 51 U/L (0-41) H 07/01/24 14:13 Alkaline Phosphatase 103 U/L (40-130) 07/01/24 14:13 Total Protein 6.9 g/dL (6.6-8.7) 07/01/24 14:13 Albumin 4.4 g/dL (3.5-5.2) 07/01/24 14:13 Globulin 2.5 g/dL (1.3-4.6) 07/01/24 14:13 Urine Color Yellow (Yellow) 07/01/24 12:24 Urine Appearance Clear (CLEAR) 07/01/24 12:24 Urine pH 5.5 (5-7) 07/01/24 12:24 Ur Specific [place] 1.034 (1.005-1.030) H 07/01/24 12:24 Urine Protein Negative (Negative) 07/01/24 12:24 Urine Glucose (UA) Trace (Normal) H 07/01/24 12:24 Urine Ketones Negative (Negative) 07/01/24 12:24 Urine Blood Negative (Negative) 07/01/24 12:24 Urine Nitrate Negative (Negative) 07/01/24 12:24 Urine Bilirubin Negative (Negative) 07/01/24 12:24 Urine Urobilinogen 0.2 mg/dL (Negative) 07/01/24 12:24 Ur Leukocyte Esterase Negative (Negative) 07/01/24 12:24 Urine RBC 0-2 /hpf (0-2) 07/01/24 12:24 Urine WBC 0-5 /hpf (0-5) 07/01/24 12:24 Ur Squamous Epith Cells 0-5 /hpf (0-5) 07/01/24 12:24 Amorphous Sediment Not Reportable 07/01/24 12:24 Urine Bacteria None seen /hpf (NONE) 07/01/24 12:24 Hyaline Casts 4.11 /lpf 07/01/24 12:24 Urine Opiates Screen Negative ng/mL (Negative) 07/01/24 12:24 Ur Barbiturates Screen Negative ng/mL (Negative) 07/01/24 12:24 Ur Phencyclidine Scrn Negative ng/mL (Negative) 07/01/24 12:24 Ur Amphetamines Screen Negative ng/mL (Negative) 07/01/24 12:24 U Benzodiazepines Scrn Negative ng/mL (Negative) 07/01/24 12:24 Urine Cocaine Screen Negative ng/mL (Negative) 07/01/24 12:24 U Marijuana (THC) Screen Negative ng/mL (Negative) 07/01/24 12:24 All radiology interpretation(s) finalized by discharge EKG Data EKG 1: I personally reviewed and interpreted this EKG as follows: EKG interpretation date: 07/01/24 EKG interpretation time: 11:33 Interpretation: nsr hr [address] elevation qrs 101 qtc 427 Discharge Plan Discharge Patient Disposition: Admitted As Inpatient Admit Provider: Shirley Sheikh Clinical Impression: Vertigo Condition: Stable Coding Level of Care Code ED Supervisor Cured Meats for Chg Fwd NIH stroke score NIHSS Level Of Consciousness - 1a: 0 Level Of Consciousness Questions - 1b: Both Correct Level Of Consciousness Commands - 1c: Both Correct Best Gaze - 2: Normal Visual Rojas - 3: No Visual Loss Facial Palsy - 4: Minor Paralysis Motor Arm Right - 5: No Drift Motor Arm Left - 5: No Drift Motor Leg Right - 6: No Drift Motor Leg Left - 6: No Drift Limb Ataxia - 7: Present In One Limb Sensory - 8: Normal Best Language - 9: No Aphasia Dysarthia - 10: Mild/Moderate Dysarthia Extinction And Inattention - 11: 0 Score Total Score: 3
[2024-07-01 11:21] LABS: Glucose Point of Care 136 mg/dL (70-110)
--- NOTE | 2024-07-01 11:28 | XRR_ITS ---
PROCEDURE INFORMATION: Exam: XR Chest Exam date and time: 07/01/2024 11:43 AM Age: 43 years old Clinical indication: Other: HTN TECHNIQUE: Imaging protocol: Radiologic exam of the chest. Views: 1 view. COMPARISON: CR XR chest 1V portable [id number] 07/14/2021 8:38 PM FINDINGS: Lungs: Unremarkable. No consolidation. Pleural spaces: Unremarkable. No pleural effusion. No pneumothorax. Heart/Mediastinum: Unremarkable. No cardiomegaly. Bones/joints: Unremarkable. XR/XR chest 1V portable [id number] IMPRESSION: No acute findings.
[2024-07-01] MEDS: iohexol 350 mg/mL 500 mL Btl (per mL) IV (11:32)
[2024-07-01] MEDS: ondansetron 2 mg/ML SDV 2 mL 4 MG IVP (11:57)
[2024-07-01] MEDS: meclizine 25 mg tablet 50 MG PO (11:59)
[2024-07-01 12:13] LABS: Basophils # 0.1 10^3/uL (0.0-0.1); Basophils % 1.2 %; Eosinophils % 0.7 %; Lymphocytes # 0.8 10^3/uL (0.8-4.8); Lymphocytes % 14.8 %; Mean Corpuscular HGB Conc 32.7 g/dL (30-55); Mean Corpuscular Hemoglobin 29.4 pg (27-33); Mean Platelet Volume 10.5 fL (7.4-10.4); Monocytes # 0.3 10^3/uL (0.2-0.9); Neutrophils # 4.29 10^3/uL (1.8-7.7); Neutrophils % 76.4 %; Nucleated Red Blood Cells % 0 %; Platelet Count 191 10^3/cmm (157-399); Red Cell Distribution Width 12.7 % (12.1-15.1); White Blood Count 5.62 10^3/uL (3.29-11.43)
--- NOTE | 2024-07-01 12:13 | P.CONIM_ITS ---
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 According to the patient's , she and her were watching TV until 3 AM on 07/01/2024. The patient woke up at 8 AM on 07/01/2024 and stated that everything was spinning and he was very dizzy and nauseated. Patient also stated that he noticed he was experiencing right lower facial weakness and numbness as well as numbness and tingling in the right arm and right leg. Code stroke was initiated at 11:18 AM on 07/01/2024. NIH score = 3 (secondary to obvious right lower facial weakness =2, decreased sensation in the right arm and right leg =1) Point of contact glucose Accu-Chek 136 (normal equals 70-110) Stat thrombolytic noncontrast head CT 07/01/2024 reported no acute findings CT angiogram of the head and neck 07/01/2024 revealed no large vessel occlusion Blood pressure 176/122 with heart rate of 83 EKG 07/01/2024 revealed normal sinus rhythm Note: Since the patient's last known well was 3 AM on 07/01/2024 and NIH score = 3, the patient was not a candidate for intravenous thrombolytics and no intravenous thrombolytics were administered. Drug allergies: Paxil which resulted in dizziness Current medications: Tylenol XR 650 mg p.o. every 8 hours as needed for pain Aripiprazole 10 mg p.o. daily Lipitor 20 mg p.o. daily Losartan 50 mg p.o. daily Past medical history: Left cerebral infarction manifested as right sided weakness and numbness 2012 Hypertension Hyperlipidemia Lumbar disc surgery approximately 1 year ago Right shoulder surgery for bone spurs April 2024 Obstructive sleep apnea Multiple lipomas Right rotator cuff tear Chews tobacco Greater trochanteric bursitis of the left hip Xerosis of the skin IT band syndrome Chronic low back pain Peripheral neuropathy Alcohol use disorder Bipolar disorder Habits: The patient has history of alcohol use disorder and chews tobacco. Family history: Negative for stroke or other neurological issues Social history: The patient lives with his Review of Systems 2 General: Reports: 10 or more systems reviewed and unremarkable except in HPI and below Medications/Allergies Home Medications ?Medication ?Instructions ?Recorded ?Confirmed ?Last Taken ?Type acetaminophen 650 mg 650 mg PO Q8H PRN pain #90 t abs 01/02/24 07/01/24 Unknown Rx tablet,extended release (Tylenol Arthritis Pain) atorvastatin 20 mg tablet 20 mg PO DAILY #90 tabs 12/2207/01/24 07/01/24 Rx aripiprazole 10 mg tablet 10 mg PO DAILY #90 tabs 01/2107/01/24 07/01/24 Rx losartan 50 mg tablet 50 mg PO DAILY #90 tabs 01/2107/01/24 07/01/24 Rx Allergies Allergy/AdvReac Type Severity Reaction Status Date / Time paroxetine AdvReac Intermediate ADR-Dizzine Verified 06/17/24 22:13 ss PFSH Acute 2 PFSH: Medical History MARILYNN (obstructive sleep apnea) intolerant of CPAP Tobacco dependence chews Essential hypertension H/O viral illness Peripheral neuropathy all extremities Bipolar disorder History of femoral angiogram Family history of colon cancer Hyperlipidemia Surgical History S/P shoulder surgery Date of procedure: May 22, 2024 Pre-op diagnosis: Right shoulder impingement with possible rotator cuff tear and acromioclavicular joint osteoarthritis Procedure done: Open right acromioplasty with distal clavicle resection and bursectomy Surgeon: Zena Triplett MD History of colonoscopy with polypectomy (08/24/21) H/O esophagogastroduodenoscopy (08/24/21) H/O hemorrhoidectomy Family History Grandmother No problems noted. Grandfather Cancer lung Hyperlipidemia Hypertension Stroke Family/Other Cancer Uncle[place] Mother Cancer small cell lung Family/Other Cancer Aunt-breast Denies family history of Diabetes CAD (coronary artery disease) Clotting disorder Dementia Chronic kidney disease (CKD) Anesthesia complication Bleeding disorder Lung disease Social History Smoking and tobacco/nicotine status: never used tobacco/nicotine Second hand smoke exposure: No Alcohol intake: former Substance/Drug Use: never Caregiver/support person: No Lives independently: Yes Household members: spouse and children Marital status: Highest education level completed: GED or Equivalent service: No Current occupational status: employed Current occupation: [employer] workers [employer] Do you think of yourself as: Straight/Heterosexual Current gender identity: Male Vitals/I&O/Wt Last Vital Signs Temp 97.3 F L 07/01/24 11:11 Pulse 77 07/01/24 11:11 Resp 17 07/01/24 11:11 BP 168/95 07/01/24 11:11 Pulse Ox 94 07/01/24 11:11 O2 Del Method Room Air 07/01/24 11:11 Weight last 48 hrs Weight 256 lb Physical Exam 2 Narrative: NIH score = 3 (secondary to obvious right lower facial weakness =2, decreased sensation in the right arm and right leg =1) Point of contact glucose Accu-Chek 136 (normal equals 70-110) Stat thrombolytic noncontrast head CT 07/01/2024 reported no acute findings CT angiogram of the head and neck 07/01/2024 revealed no large vessel occlusion Blood pressure 176/122 with heart rate of 83 EKG 07/01/2024 revealed normal sinus rhythm The patient is alert and oriented x 3. Speech fluent. Head normocephalic. Neck supple. Cranial nerves II through XII revealed decreased sensation in a V1 through V3 distribution over the right face. Other cranial nerves intact except the patient complaining of vertigo with the room spinning with turning of his head or with extraocular movement testing. Extraocular movements were full without obvious signs of nystagmus. Visual alva full via confrontation. Pupils 4 mm round reactive to light and accommodation. Motor testing 5/5 bilaterally. There was no drift. Deep tendon reflex revealed plantar responses bilaterally. Sensory examination patient reported decreased sensation over the right arm and right leg. There was no extinction on double sensory stimulation. Throat clear. Lungs clear. Heart regular rhythm and rate. Extremities were negative for cyanosis. Data 07/01/24 12:02 07/01/24 12:02 A&P Assessment and plan (1) Stroke determined by clinical assessment: Impression: 1. Acute onset of severe vertigo associated with right facial numbness and right arm and right leg numbness upon awakening from sleep on 07/01/2024 at 8 AM. Clinic suggestive of posterior circulation stroke. NIH score =3. Since the patient's last known well was 3 AM on 07/01/2024, and CT angiogram of the head and neck and head CT were unrevealing for acute findings, patient was not a candidate for intravenous thrombolytics and no intravenous thrombolytics were administered 2. Hypertension with elevated blood pressure 176/122 3. History of remote left cerebral infarction manifested right sided weakness and numbness 2012 4. History of right shoulder surgery April 2024 for bone spur 5. History of lumbar disc surgery approximately 1 year ago 6. IT syndrome 7. Bipolar disorder 8. History of alcohol use 9. Peripheral neuropathy Plan: 1. Recommend increasing Lipitor to 40 mg p.o. nightly 2. Address hypertension which is most likely cause of the patient's stroke 3. Recommend obtaining 2D echocardiogram to rule out embolic source for stroke 4. Recommend obtaining head MRI without and with contrast to assess for posterior circulation stroke and space-occupying lesion in the posterior fossa 5. Recommend starting aspirin 325 mg p.o. every morning with food per NIH stroke protocol if no contraindication from medical standpoint 6. Agree with Antivert (meclizine) 25 mg p.o. every 6 hours as needed dizziness 7. Stroke education/stroke pamphlet for patient and family 8. Occupational Therapy, speech therapy and physical therapy consults 9. Fall precautions 10. Neurochecks and vital signs per NIH stroke protocol PDMP PDMP Reviewed: Not Reviewed Consult Attestations 2 Medical Necessity Statement: The patient was evaluated by neurology for acute care/code stroke emergency department room #3 Coding Level of Care Code 84787 Diagnoses Stroke determined by clinical assessment I63.9
[2024-07-01 12:57] LABS: Bilirubin Urine Negative (Negative); Blood Urine Negative (Negative); Glucose Urine UA Trace (Normal); Ketones Urine Negative (Negative); Leukocyte Esterase Urine Negative (Negative); Nitrate Urine Negative (Negative); Protein Urine Negative (Negative); Urine Appearance Clear (CLEAR); Urine Color Yellow (Yellow); Urobilinogen Urine 0.2 mg/dL (Negative); pH Urine 5.5 (5-7)
[2024-07-01 13:02] LABS: Add Urine Microscopic? YES; Bacteria Urine None Seen /hpf; Hyaline Casts Urine 4.11 /lpf; RBC Urine 0-2 /hpf (0-2); Squamous Epithelial Cell Urine 0-5 /hpf (0-5); WBC Urine 0-5 /hpf (0-5)
[2024-07-01 13:03] LABS: Amphetamines Screen Urine Negative (Negative); Barbiturates Screen Urine Negative (Negative); Benzodiazepines Screen Urine Negative (Negative); Cocaine Screen Urine Negative (Negative); Opiate Screen Urine Negative (Negative); PCP Screen Urine Negative (Negative); THC Screen Urine Negative (Negative)
[2024-07-01 13:07] LABS: Add Urine Culture? No; Specific Gravity, Urine 1.034 (1.005-1.030)
[2024-07-01] MEDS: aspirin 81 mg Chew Tablet 324 MG PO (14:27)
[2024-07-01 14:36] LABS: INR 0.97 (0.8-1.2)
[2024-07-01 14:44] LABS: Alanine Aminotransferase 51 U/L (0-41); Albumin Level 4.4 g/dL (3.5-5.2); Alkaline Phosphatase 103 U/L (40-130); Aspartate Amino Transferase 32 U/L (0-40); Blood Urea Nitrogen 13 mg/dL (6-20); Calcium 9.2 mg/dL (8.5-10.5); Carbon Dioxide 22 mmol/L (22-29); Chloride 102 mmol/L (98-107); Creatinine Clr Calc Pharmacy 172.7115; Globulin 2.5 g/dL (1.3-4.6); Glucose 121 mg/dL (65-115); Osmolality Calculated 281 mOsm/kg (285-295); Sodium 135 mmol/L (136-145); Total Bilirubin 0.4 mg/dL (0.15-1.2); Total Protein 6.9 g/dL (6.6-8.7)
[2024-07-01 14:50] LABS: Anion Gap 15.6 (5-19); Potassium 4.6 mmol/L (3.5-5.1)
--- NOTE | 2024-07-01 16:43 | PM.HP ---
Providers/Chief Complaint Admitting Physician: Shirley Sheikh MD Primary Care Provider: Nicolas Braun MD Chief Complaint: n/v, weakness, dizzy History of Present Illness Chester To is a 43 year old male who presented to the emergency room with chief complaint of severe dizziness and vomiting. He was okay last night when he went to bed. Upon awakening and opening up his eyes everything around him seem to be spinning. The dizziness was worse with any kind of movement. He had multiple episodes of vomiting at home with family describing more than 40 times . It was bilious emesis. He had some visual disturbances and on repeated neurological exams has seen up to 4 fingers at 1 time when only 1 was present. At home what prompted his family to have him come to the emergency room was slurred speech and worsening of a chronic left-sided facial droop. He had a stroke back in 2012 or 2011. He has had persistent mild right sided facial droop since then. No focal weakness noted in upper or lower extremities but he did have some paresthesias, describing numbness and tingling. Initial NIH stroke scale score was [address] of the head did not show any acute findings. Subsequently CTA of the head and neck showed no large vessel occlusion. With low NIH stroke score not a candidate for intravenous thrombolytics. For his vertigo he received a dose of meclizine and Zofran. He says that symptoms are a bit better but still developing dizziness with movement. Not as bad as earlier. He did receive aspirin and is being admitted to hospitalist service for further evaluation. Recommendation from neurology is for MRI in the morning and echocardiogram. I will note that initial blood pressures were as high as 170s over 120s. Without focus intervention blood pressures have improved. Review of Systems General: Reports: Other (ROS as per HPI or as otherwise noted here) Const: Denies: fever(s) Eyes: Reports: change in vision (double vision) Card: Reports: chest pain (brief episode today); Denies: syncope GI: Reports: nausea and vomiting; Denies: constipation or hematochezia : Denies: difficulty urinating Neuro: Reports: numbness in extremities (transient right side), difficulty walking, dizziness and vertigo; Denies: headache(s) Oswaldo/Lymph: Denies: easy bleeding Medications/Allergies Home Medications ?Medication ?Instructions ?Recorded ?Confirmed ?Last Taken ?Type acetaminophen 650 mg 650 mg PO Q8H PRN pain #90 tabs 01/02/24 07/01/24 Unknown Rx tablet,extended release (Tylenol Arthritis Pain) atorvastatin 20 mg tablet 20 mg PO DAILY #90 tabs 01/02/24 07/01/24 07/01/24 Rx aripiprazole 10 mg tablet 10 mg PO DAILY #90 tabs 01/31/24 07/01/24 07/01/24 Rx losartan 50 mg tablet 50 mg PO DAILY #90 tabs 01/31/24 07/01/24 07/01/24 Rx Allergies Allergy/AdvReac Type Severity Reaction Status Date / Time paroxetine AdvReac Intermediate ADR-Dizzine Verified 06/17/24 22:13 ss PFSH Acute PFSH: Medical History (Updated 07/01/24 @ 20:19 by Shirley Sheikh MD) History of stroke 2013 left cerebral infarction with right weakness Facet arthritis, degenerative, lumbar spine Multiple lipomas MARILYNN (obstructive sleep apnea) intolerant of CPAP Tobacco dependence chews Essential hypertension Peripheral neuropathy all extremities Bipolar disorder History of femoral angiogram Family history of colon cancer Hyperlipidemia Surgical History (Updated 07/01/24 @ 16:50 by Shirley Sheikh MD) Status post lumbar spinal fusion S/P shoulder surgery Date of procedure: May 22, 2024 Pre-op diagnosis: Right shoulder impingement with possible rotator cuff tear and acromioclavicular joint osteoarthritis Procedure done: Open right acromioplasty with distal clavicle resection and bursectomy Surgeon: Zena Triplett MD History of colonoscopy with polypectomy (08/24/21) H/O esophagogastroduodenoscopy (08/24/21) H/O hemorrhoidectomy Family History Grandmother No problems noted. Grandfather Cancer lung Hyperlipidemia Hypertension Stroke Family/Other Cancer Uncle[place] Mother Cancer small cell lung Family/Other Cancer Aunt-breast Denies family history of Diabetes CAD (coronary artery disease) Clotting disorder Dementia Chronic kidney disease (CKD) Anesthesia complication Bleeding disorder Lung disease Social History (Updated 07/01/24 @ 19:47 by Shirley Sheikh MD) Smoking and tobacco/nicotine status: current some day tobacco/nicotine user smokeless tobacco Smokeless tobacco user: chewing tobacco Second hand smoke exposure: No Alcohol intake: former Substance/Drug Use: never Caregiver/support person: No Lives independently: Yes Household members: spouse and children Marital status: Highest education level completed: GED or Equivalent service: No Current occupational status: employed Current occupation: [employer] workers [employer] Do you think of yourself as: Straight/Heterosexual Current gender identity: Male Vitals/I&O/Wt Last Vital Signs Temp 97.3 F L 07/01/24 11:11 Pulse 94 07/01/24 16:00 Resp 13 07/01/24 16:00 BP 131/87 07/01/24 16:00 Pulse Ox 92 07/01/24 16:00 O2 Del Method Room Air 07/01/24 16:00 Weight last 48 hrs Weight 116.12 kg Physical Exam Narrative: Patient is awake and alert. Able to provide history. Lying on left side in a lateral decubitus position. Able to make eye contact but keeps head still. No vomiting or gross vertiginous symptoms impeding examination noted. Dizziness is reproducible with head movements. Right-sided facial droop is noted. Neck is large but supple. Lungs are clear to auscultation without any rales rhonchi or wheezes noted. Cardiovascular exam reveals a regular rhythm. No murmurs. No gallops or rubs. Abdomen is soft, no tender. Positive bowel sounds noted. Extremities no pitting edema or calf tenderness. Handgrip is equal bilaterally. Strength is equal at both feet. No abnormal movements noted. Gait not currently assessed at this time. Data 07/01/24 12:02 07/01/24 14:13 Other Labs: Radiology Impressions Head CT 07/01/24 11:17 IMPRESSION: 1. No evidence of intracranial hemorrhage or mass effect. 2. No acute intracranial findings. Notified Marcelle Begum MD at 07/01/2024 11:31 AM. Head/Neck CTA 07/01/24 11:17 IMPRESSION: 1. No significant cervical ICA stenosis. 2. No flow-limiting intracranial stenosis. 3. LEFT vertebral artery originates from the aortic arch. Codominant and patent vertebral arteries bilaterally. 4. Proximal subclavian arteries are patent. Chest X-Ray 07/01/24 11:28 IMPRESSION: No acute findings. Laboratory Results WBC 5.62 10^3/uL (3.29-11.43) 07/01/24 12:02 RBC 5.00 10^6/uL (3.85-5.65) 07/01/24 12:02 Hgb 14.70 g/dL (11.27-16.99) 07/01/24 12:02 Hct 45.0 % (37-53) 07/01/24 12:02 MCV 90.0 fl (82-101) 07/01/24 12:02 MCH 29.4 pg (27-33) 07/01/24 12:02 MCHC 32.7 g/dL (30-55) 07/01/24 12:02 RDW 12.7 % (12.1-15.1) 07/01/24 12:02 Plt Count 191 10^3/cmm (157-399) 07/01/24 12:02 MPV 10.5 fL (7.4-10.4) H 07/01/24 12:02 Neut % (Auto) 76.4 % 07/01/24 12:02 Lymph % (Auto) 14.8 % 07/01/24 12:02 Morrill % (Auto) 6.0 % 07/01/24 12:02 Eos % (Auto) 0.7 % 07/01/24 12:02 Baso % (Auto) 1.2 % 07/01/24 12:02 Neut # (Auto) 4.29 10^3/uL (1.8-7.7) 07/01/24 12:02 Lymph # (Auto) 0.8 10^3/uL (0.8-4.8) 07/01/24 12:02 [place]rill # (Auto) 0.3 10^3/uL (0.2-0.9) 07/01/24 12:02 Eos # (Auto) 0.0 10^3/uL (0.0-0.8) 07/01/24 12:02 Baso # (Auto) 0.1 10^3/uL (0.0-0.1) 07/01/24 12:02 Nucleated RBC % (auto) 0 % 07/01/24 12:02 Nucleated RBCs # 0.0 /100WBC 07/01/24 12:02 PT 13.50 SECONDS (12.1-14.9) 07/01/24 14:13 INR 0.97 (0.8-1.2) 07/01/24 14:13 APTT 25.0 SECONDS (23.9-36.7) 07/01/24 14:13 Sodium 135 mmol/L (136-145) L 07/01/24 14:13 Potassium 4.6 mmol/L (3.5-5.1) 07/01/24 14:13 Chloride 102 mmol/L (98-107) 07/01/24 14:13 Carbon Dioxide 22 mmol/L (22-29) 07/01/24 14:13 Anion Gap 15.6 (5-19) 07/01/24 14:13 BUN 13 mg/dL (6-20) 07/01/24 14:13 Creatinine 0.7 mg/dL (0.7-1.2) 07/01/24 14:13 GFR Calculation 122.0 mL/min (90-130) 07/01/24 14:13 Glucose 121 mg/dL (65-115) H 07/01/24 14:13 POC Glucose 136 mg/dL (70-110) H 07/01/24 11:19 Calculated Osmolality 281 mOsm/kg (285-295) L 07/01/24 14:13 Calcium 9.2 mg/dL (8.5-10.5) 07/01/24 14:13 Total Bilirubin 0.4 mg/dL (0.15-1.2) 07/01/24 14:13 AST 32 U/L (0-40) 07/01/24 14:13 ALT 51 U/L (0-41) H 07/01/24 14:13 Alkaline Phosphatase 103 U/L (40-130) 07/01/24 14:13 Total Protein 6.9 g/dL (6.6-8.7) 07/01/24 14:13 Albumin 4.4 g/dL (3.5-5.2) 07/01/24 14:13 Globulin 2.5 g/dL (1.3-4.6) 07/01/24 14:13 Urine Color Yellow (Yellow) 07/01/24 12:24 Urine Appearance Clear (CLEAR) 07/01/24 12:24 Urine pH 5.5 (5-7) 07/01/24 12:24 Ur Specific [place] 1.034 (1.005-1.030) H 07/01/24 12:24 Urine Protein Negative (Negative) 07/01/24 12:24 Urine Glucose (UA) Trace (Normal) H 07/01/24 12:24 Urine Ketones Negative (Negative) 07/01/24 12:24 Urine Blood Negative (Negative) 07/01/24 12:24 Urine Nitrate Negative (Negative) 07/01/24 12:24 Urine Bilirubin Negative (Negative) 07/01/24 12:24 Urine Urobilinogen 0.2 mg/dL (Negative) 07/01/24 12:24 Ur Leukocyte Esterase Negative (Negative) 07/01/24 12:24 Urine RBC 0-2 /hpf (0-2) 07/01/24 12:24 Urine WBC 0-5 /hpf (0-5) 07/01/24 12:24 Ur Squamous Epith Cells 0-5 /hpf (0-5) 07/01/24 12:24 Amorphous Sediment Not Reportable 07/01/24 12:24 Urine Bacteria None seen /hpf (NONE) 07/01/24 12:24 Hyaline Casts 4.11 /lpf 07/01/24 12:24 Urine Opiates Screen Negative ng/mL (Negative) 07/01/24 12:24 Ur Barbiturates Screen Negative ng/mL (Negative) 07/01/24 12:24 Ur Phencyclidine Scrn Negative ng/mL (Negative) 07/01/24 12:24 Ur Amphetamines Screen Negative ng/mL (Negative) 07/01/24 12:24 U Benzodiazepines Scrn Negative ng/mL (Negative) 07/01/24 12:24 Urine Cocaine Screen Negative ng/mL (Negative) 07/01/24 12:24 U Marijuana (THC) Screen Negative ng/mL (Negative) 07/01/24 12:24 A&P Assessment and plan (1) Vertigo: Sudden onset and awakening him from sleep this morning and severe. Has not had similar symptoms previously. Currently has some features suggesting positional vertigo but that was not the case initially so concern is more for posterior circulation etiology at this time. - Meclizine as needed - Antiemetics as needed - Other supportive care (2) Stroke determined by clinical assessment: As per description provided by Dr. Boudreaux to include vertigo, right-sided weakness, right-sided facial droop. Also with slurred speech. Presently continues to have vertigo and some worsening of right sided facial droop from baseline though speech and weakness have improved. Was not a candidate for TNK. Current concern is for posterior circulation stroke with severity of his vertigo. - Stroke workup to include MRI, echocardiogram - PT, OT, speech - Check lipid panel and A1c for restratification - Encouraged to quit smoking - Allowing permissive hypertension currently - Initiate daily aspirin therapy - Continue statin therapy and losartan from home (3) Essential hypertension: Chronically on losartan. Initially with significant hypertension related to symptom presentation that has improved without focused intervention. - Continue home losartan, monitor blood pressures (4) Hyperlipidemia: Chronically on statin therapy - Increase atorvastatin dosing to 40 mg daily Qualifiers: Hyperlipidemia type: mixed hyperlipidemia Qualified Code(s): E78.2 - Mixed hyperlipidemia (5) MARILYNN (obstructive sleep apnea): Intolerant of CPAP. Contributing factor to hypertension and other comorbidities with no treatment. -In discussions with PCP can consider alternative treatments including inspire (6) Tobacco dependence: Chewing tobacco. - Reviewed with patient that nicotine and chewing tobacco still increases risk of stroke and that working towards cessation of all nicotine can help decrease risk of recurrent strokes. (7) Hyperglycemia: Mild hyperglycemia without any history of diabetes - Will recheck blood sugars in the morning along with an A1c (8) Bipolar disorder: Chronically on Abilify which has controlled his bipolar symptoms well. Reviewed with patient and family increased risk of stroke with this drug but also that sometimes benefits of medications can outweigh potential risk of medications and that it would be a decision that would have to be made by them in an informed manner and include provider who primarily manages his bipolar disorder as well for alternative management options should they choose to not continue it. - Current plan is to hold Abilify in the morning and follow-up MRI results before further discussion regarding whether or not to resume Abilify and plans regarding medication management at discharge. Qualifiers: Active/Remission status: in partial remission Most recent bipolar episode type: mixed Qualified Code(s): F31.77 - Bipolar disorder, in partial remission, most recent episode mixed Plan Observation admission VTE prophylaxis: Lovenox Antibiotics: none Pending studies: MRI of the head ordered for in the morning, echocardiogram ordered for in the morning, A1c and lipid panel along with repeat electrolytes ordered for in the morning Telemetry: Ordered secondary to stroke Freed: not currently indicated Line(s): peripheral IVs Disposition plan: Home with outpatient follow up with primary care provider and neurology anticipated. May need to also facilitate sooner follow-up with primary prescribing provider of Abilify. Last prescribed by Dr Braun. Code Status: Full Code Supportive care otherwise Findings, concerns and plans were discussed with patient and his family and they were given an opportunity to ask questions PDMP PDMP Reviewed: Last Reviewed 07/01/24 20:24 by Shirley Sheikh MD Attestations Medical Necessity Statement*: Currently anticipate a stay less than two midnights in this gentleman presenting with vertigo symptoms and right sided weakness suggesting acute stroke. He has a history of prior stroke some years ago. Not deemed a candidate for TNK. Vertiginous symptoms have persisted although right sided weakness has improved. Plan for further workup and symptom control as described. Will also need to determine plans for continued use of Abilify.. Diagnoses Vertigo R42 Stroke determined by clinical assessment I63.9 Essential hypertension I10 Mixed hyperlipidemia E78.2 Hyperlipidemia type: mixed hyperlipidemia MARILYNN (obstructive sleep apnea) G47.33 Tobacco dependence F17.200 Hyperglycemia R73.9 Bipolar disorder, in partial remission, most recent episode mixed F31.77 Active/Remission status: in partial remission Most recent bipolar episode type: mixed
--- NOTE | 2024-07-01 16:43 | PC.NURSE ---
Pt report called to med surg nurse Sd.
--- NOTE | 2024-07-01 17:41 | USCV_ITS ---
Chester To Age: 43 Gender: M : 1980 Exam Date: 07/01/2024 18:03 Ordering Phys: Shirley Sheikh MD Technologist: LOLIS Exam Location: [facility] [place] Indication: Clinical Stoke, HTN BP: 120 / 83 HR: 79 Rhythm: Sinus Technical Quality: Adequate MEASUREMENTS (Male / Female) Normal Values 2D ECHO LV Diastolic Diameter PLAX 4.4 cm 4.2 - 5.9 / 3.9 - 5.3 cm IVS Diastolic Thickness 1.2 cm 0.6 - 1.0 / 0.6 - 0.9 cm IVS Systolic Thickness 1.4 cm LVPW Diastolic Thickness 1.2 cm 0.6 - 1.0 / 0.6 - 0.9 cm LVPW Systolic Thickness 1.5 cm LVOT Diameter 2.0 cm LV Ejection Fraction 2D Teich 58.1 % LV Ejection Fraction MOD 4C 52.9 % LV Ejection Fraction MOD 2C 62.4 % LV Ejection Fraction 2C AL 61.2 % LA Diameter 3.3 cm RA Systolic Volume 4C AL 39.4 ml RA Systolic Volume 4C MOD 39.8 ml LA Sys Volume AL 30.6 cm cubed LA Sys Volume Index AL 12.5 cm cubed/m squared Aorta at Sinotubular Diameter 3.0 cm M-MODE LA Ao Ratio MM 1.2 AV Cusp Separation MM 2.1 cm DOPPLER AV Peak Velocity 117.0 cm/s LVOT Peak Velocity 100.0 cm/s AV Area Cont Eq vti 3.5 cm squared AV Area Cont Eq pk 2.8 cm squared MV Peak Velocity 91.0 cm/s MV Area PHT 4.6 cm squared Mitral E to A Ratio 1.0 TR Peak Velocity 114.0 cm/s TR Peak Gradient 5.2 mmHg TV Peak E Velocity 98.0 cm/s PV Peak Velocity 107.0 cm/s FINDINGS Left Ventricle Normal left ventricular size, systolic function and wall thickness, with no regional wall motion abnormalities. Left ventricular ejection fraction is estimated at 60 %. Grade I/IV diastolic dysfunction (abnormal relaxation filling pattern), normal to mildly elevated filling pressures. Right Ventricle The right ventricle is normal in size and function. Right Atrium The right atrium is normal in size. Left Atrium The left atrium is normal in size. Mitral Valve Structurally normal mitral valve without significant stenosis or prolapse. There is no mitral regurgitation. Aortic Valve Moderate aortic valve calcification. No aortic valve stenosis. Trace aortic valve regurgitation. Tricuspid Valve Structurally normal tricuspid valve without significant stenosis or regurgitation. Pulmonary artery systolic pressure is normal. Pulmonic Valve Structurally normal pulmonic valve without significant stenosis. There is no pulmonic regurgitation. Pericardium Normal pericardium without effusion. Aorta Normal ascending aorta dimension. IVC The inferior vena cava appears normal. CONCLUSIONS Normal left ventricular size, systolic function and wall thickness, with no regional wall motion abnormalities. Left ventricular ejection fraction is estimated at 60 %. Grade I/IV diastolic dysfunction (abnormal relaxation filling pattern), normal to mildly elevated filling pressures. There is no pericardial effusion. Pulmonary artery systolic pressure is within normal limits. Right atrial pressure is around 5 mm of mercury. Ryan Rene MD (Electronically Signed) Final Date: 01 July 2024 22:44 S
[2024-07-01] MEDS: enoxaparin 40 mg/0.4 mL Syringe SUBCUT (18:04)
[2024-07-01] MEDS: famotidine 20 mg Tablet PO (18:04)
[2024-07-02 00:37] VITALS: BP 97/58; PULSE 80; RESP 16; O2SAT 95
[2024-07-02 05:20] LABS: Alanine Aminotransferase 36 U/L (0-41); Albumin Level 3.9 g/dL (3.5-5.2); Alkaline Phosphatase 108 U/L (40-130); Anion Gap 15.2 (5-19); Aspartate Amino Transferase 23 U/L (0-40); Blood Urea Nitrogen 15 mg/dL (6-20); Calcium 8.8 mg/dL (8.5-10.5); Carbon Dioxide 25 mmol/L (22-29); Chloride 103 mmol/L (98-107); Creatinine Clr Calc Pharmacy 122.2861; Globulin 2.2 g/dL (1.3-4.6); Glomerular Filtration Rate 80.8 mL/min (90-130); Glucose 156 mg/dL (65-115); Magnesium 2.2 mg/dL (1.7-2.3); Osmolality Calculated 292 mOsm/kg (285-295); Phosphorus 3.5 mg/dL (2.5-4.5); Potassium 4.2 mmol/L (3.5-5.1); Sodium 139 mmol/L (136-145); Total Bilirubin 0.2 mg/dL (0.15-1.2); Total Protein 6.1 g/dL (6.6-8.7)
[2024-07-02 05:24] LABS: Chol HDL Ratio 8.39 mg/dL (1.0-5.00); Cholesterol 277 mg/dL (0-200); HDL Cholesterol 33 mg/dL (60-100)
[2024-07-02 05:25] VITALS: BP 95/59; PULSE 81; RESP 16; O2SAT 94
[2024-07-02 05:40] LABS: Triglycerides 1117 mg/dL (0-150)
[2024-07-02 05:53] LABS: LDL Cholesterol Direct 130 mg/dL (0-100)
[2024-07-02 05:54] LABS: Estmated Average Glucose 131; Hemoglobin A1C 6.2 % (4.0-6.0)
[2024-07-02 07:48] VITALS: BP 178/78; PULSE 83; RESP 15; TEMP 36.8; O2SAT 94
--- NOTE | 2024-07-02 08:00 | MR_ITS ---
WS: [id number] MRI BRAIN WITH AND WITHOUT CONTRAST HISTORY: vertigo, clinical stroke, htn, hld, hx cva COMPARISON: CT head 07/01/2024 TECHNIQUE: Multiplanar imaging performed through the brain with MultiHance 20 ml's IV. Normal diffusion imaging. No acute intracranial hemorrhage. No prior infarcts. Mild cerebellar atrophy out of proportion to the supratentorial atrophy. No infarct. No susceptibility artifacts or prior lacunar infarcts. Ventricles and extra-axial spaces are normal. Clivus and pituitary gland are normal. Visualized posterior fossa and brainstem are also normal. Postcontrast images are negative for masses or vascular malformations. Dural venous sinuses are normal. Paranasal sinuses: Mucous retention cyst in the RIGHT maxillary sinus. No air- fluid levels. Mastoid air cells: Normal. Calvarium and scalp: Normal. MR/MR head wo/w con [id number] IMPRESSION: 1. Normal diffusion imaging. No acute infarct. 2. Mild cerebellar atrophy. 3. No prior infarct or volume loss supratentorial brain. 4. No enhancing masses.
[2024-07-02] MEDS: atorvastatin 40 mg Tablet 20 MG PO (08:01)
[2024-07-02] MEDS: aspirin 325 mg EC Tablet PO (08:01)
[2024-07-02] MEDS: famotidine 20 mg Tablet PO (08:01)
--- NOTE | 2024-07-02 08:58 | PC.NURSE ---
medical records coordinator rounds at 0830- gave patient and family stroke education book.
--- NOTE | 2024-07-02 09:22 | PC.CHAP ---
Pastoral Care Encounter/Spiritual Assessment Type of Contact [] Declined powder worker tnt visit [] Patient/Family/Request visit [] Outpatient visit [] Follow-up visit [] Physician referral [] Code/Alert [] Routine visit [] Staff referral [] Actively dying [] Patient sleeping [] Family support [] [] Out of room [] Palliative care [] [x] Receiving care in room [] Pre-surgical visit [] Trauma [] Long length of stay [] ICU visit [] Other: Relational/Emotional Strength [] Patient feels connected with others/family/visitors/staff [] Distress [] Loneliness/isolation [] Abandonment Spirituality of Patient [] Person of Jill [] Attends Congregational of their Jill [] Believes in Prayer [] Reads Bible or Adventism materials [] There are Spiritual issues to be addressed Bag Inspector Interventions [] Prayer [] Active listening [] Non-anxious presence [] Spiritual/emotional support [] Crisis/trauma care [] Spiritual counseling [] Bereavement support [] Provided bereavement packet [] Provided Bible/devotional materials [] Provided toy/stuffed animal, coloring book to patient or family member [] Provided Communion [] Anointing/[place]urora [] Salvation [] Completed spiritual assessment [] Other: Impact on Illness or Injury [] Angry [] Fearful [] Anxious [] Often cries [] Exhaustion [] Unable to work [] Unable to attend religion [] Unable to walk/stand [] Unable to read [] Unable to drive [] Unable to eat/drink [] Unable to sleep [] Unable to be with family [] Patient intubated [] Other: Summary Time spent with patient
--- NOTE | 2024-07-02 10:33 | PC.SLP ---
Attempted to assess, however, patient was going down for an MRI.
[2024-07-02] MEDS: gadobenate dimeglumine 20 mL vial IV (10:42)
--- NOTE | 2024-07-02 10:44 | PC.OT ---
Attempted OT eval with pt at MRI; will attempt again at a later time.
--- NOTE | 2024-07-02 11:28 | P.PN_ITS ---
Subjective 2 Subjective: Patient reports symptoms have waxed and waned a little bit since yesterday. Still having significant vertigo. He notes he was able to make it to the restroom earlier this morning. MRI scheduled for this morning. He does have a history of stroke. Family bedside and supportive. Medications: Reviewed: Yes Vitals/I&O/Wt Last Vital Signs Temp 98.3 F 07/02/24 07:48 Pulse 83 07/02/24 07:48 Resp 15 07/02/24 07:48 BP 178/78 07/02/24 07:48 Pulse Ox 94 07/02/24 07:48 O2 Del Method Room Air 07/02/24 07:48 07/01/24 07/02/24 07/02/24 22:59 06:59 14:59 Intake Total 120 / 120 1000 / 1120 Balance 120 / 120 1000 / 1120 Weight last 48 hrs Weight 113.942 kg Weight 118.75 kg Weight 116.12 kg Physical Exam 2 Narrative: General: Patient is awake. Appears fatigued but very pleasant. Conversational. Head: Normocephalic. Atraumatic. EOM intact. Neck: No JVD. Cardiovascular: RRR. No gallops. No murmurs. Lungs: Clear to auscultation, no use of accessory muscles, no crackles or wheezes. Skin: No jaundice. No rashes. Abdomen: Normal bowel sounds, abdomen soft and nontender. Genito Urinary: Genital exam not performed since complaints not related. Rectal: Rectal exam not performed since no symptoms indicated blood loss. Extremities: No cyanosis or clubbing. Musculoskeletal: No swollen or erythematous joints. Neurological: Moves all 4 extremities. No myoclonus. Data 07/01/24 12:02 07/02/24 04:20 A&P Assessment and plan (1) Vertigo: Patient remains very symptomatic Evaluating for underlying posterior stroke Therapy evaluation is pending Meclizine as needed (2) Stroke determined by clinical assessment: MRI is pending, will follow-up Echocardiogram reviewed Therapy evaluation pending Lipid and A1c reviewed Complete permissive hypertension today Neurology following (3) Essential hypertension: Continue home losartan, monitor blood pressures (4) Hyperlipidemia: Continue statin to high intensity dosing Qualifiers: Hyperlipidemia type: mixed hyperlipidemia Qualified Code(s): E78.2 - Mixed hyperlipidemia (5) MARILYNN (obstructive sleep apnea): May benefit from non-CPAP modality such as inspire (6) Tobacco dependence: Would benefit from tobacco cessation (7) Hyperglycemia: A1c consistent with impaired fasting glucose (8) Bipolar disorder: Continue Abilify Qualifiers: Active/Remission status: in partial remission Most recent bipolar episode type: mixed Qualified Code(s): F31.77 - Bipolar disorder, in partial remission, most recent episode mixed Plan DVT prophylaxis: Lovenox PDMP PDMP Reviewed: Not Reviewed Attestations 2 Medical Necessity Statement*: Patient requires ongoing hospitalization for MRI, serial neurological exams, further treatment of vertigo, and supportive care. Coding Level of Care Code Acute Code for Chg Fwd Diagnoses Vertigo R42 Stroke determined by clinical assessment I63.9 Essential hypertension I10 Mixed hyperlipidemia E78.2 Hyperlipidemia type: mixed hyperlipidemia MARILYNN (obstructive sleep apnea) G47.33 Tobacco dependence F17.200 Hyperglycemia R73.9 Bipolar disorder, in partial remission, most recent episode mixed F31.77 Active/Remission status: in partial remission Most recent bipolar episode type: mixed
[2024-07-02 11:48] VITALS: BP 142/91; PULSE 75; RESP 15; TEMP 36.5; O2SAT 94
[2024-07-02 14:00] VITALS: PULSE 65
--- NOTE | 2024-07-02 14:51 | PC.OT ---
Pt seen for OT evaluation dressed in clothes. Pt is A+Ox2 and BIMS Assessment reports moderate cognitive impairment. Pt demonstrates good dynamic and static sitting and standing balance and declines to participate in ADLs. Pt demonstrates UE AROM WFL and UE strength WFL. No OT indicated at this time as pt has high level of independence. Pt has no further questions and all needs are within reach.
--- NOTE | 2024-07-02 15:19 | P.DS_ITS ---
Discharge Providers Date of Admission: 07/01/24 15:00 Date of Discharge: July 02, 2024 Attending Provider at Admission: Shirley Sheikh MD Attending Provider at Discharge: Jesus Seo MD Consults: Neurology Primary Care Provider: Nicolas Braun MD Diagnoses at Discharge Discharge Diagnosis (1) Vertigo: Status: Acute (2) Stroke determined by clinical assessment: Status: Acute (3) Essential hypertension: Status: Chronic (4) Hyperlipidemia: Status: Chronic Qualifiers: Hyperlipidemia type: mixed hyperlipidemia Qualified Code(s): E78.2 - Mixed hyperlipidemia (5) MARILYNN (obstructive sleep apnea): Status: Chronic Permanent problem details: intolerant of CPAP (6) Tobacco dependence: Status: Chronic Permanent problem details: chews (7) Hyperglycemia: Status: Acute (8) Bipolar disorder: Status: Chronic Qualifiers: Active/Remission status: in partial remission Most recent bipolar epi sode type: mixed Qualified Code(s): F31.77 - Bipolar disorder, in partial remission, most recent episode mixed Reason for Visit Reason for Visit: n/v, weakness, dizzy Hospital Course Hospital Course Chester Weber is a 43-year-old male with a past medical history significant for stroke who presented with severe dizziness associated with nausea and vomiting. Presentation was suspicious initially for posterior stroke especially considering patient has a history of prior stroke. Neurology was consulted and followed. MRI was obtained which was negative for stroke findings. Presentation most consistent with peripheral vertigo. Symptom pathology did improve. He is being discharged with short course of meclizine and short course of Valium for severe and refractory vertigo. Patient and family were counseled extensively regarding side effects of Valium. He is not to drive or operating machinery if he takes the Valium. Patient discharging to home in stable condition to complete his recovery. Return precautions were discussed. I will follow-up with his primary within 1 week for ongoing care. Physical Exam Narrative: General: Patient is awake. Appears fatigued but very pleasant. Conversational. Head: Normocephalic. Atraumatic. EOM intact. Neck: No JVD. Cardiovascular: RRR. No gallops. No murmurs. Lungs: Clear to auscultation, no use of accessory muscles, no crackles or wheezes. Skin: No jaundice. No rashes. Abdomen: Normal bowel sounds, abdomen soft and nontender. Genito Urinary: Genital exam not performed since complaints not related. Rectal: Rectal exam not performed since no symptoms indicated blood loss. Extremities: No cyanosis or clubbing. Musculoskeletal: No swollen or erythematous joints. Neurological: Moves all 4 extremities. No myoclonus. Discharge Data Studies Completed and Pending Completed Studies During Hospitalization Category Date Time Status CT angio headneck* [id number] Stat Cat Scan 07/01/24 11:[address] head thrombolytic [id number] Stat Cat Scan 07/01/24 11:17 Completed CXRP [XR chest 1V portable [id number]] Stat Exams 07/01/24 11:28 Completed MR head wo/w con [id number] Routine MRI 07/02/24 08:00 Completed CV. echo complete* [id number] Routine Ultrasound 07/01/24 17:41 Completed Radiology Impressions Head CT 07/01/24 11:17 IMPRESSION: 1. No evidence of intracranial hemorrhage or mass effect. 2. No acute intracranial findings. Notified Marcelle Begum MD at 07/01/2024 11:31 AM. Head/Neck CTA 07/01/24 11:17 IMPRESSION: 1. No significant cervical ICA stenosis. 2. No flow-limiting intracranial stenosis. 3. LEFT vertebral artery originates from the aortic arch. Codominant and patent vertebral arteries bilaterally. 4. Proximal subclavian arteries are patent. Chest X-Ray 07/01/24 11:28 IMPRESSION: No acute findings. Head MRI 07/02/24 08:00 IMPRESSION: 1. Normal diffusion imaging. No acute infarct. 2. Mild cerebellar atrophy. 3. No prior infarct or volume loss supratentorial brain. 4. No enhancing masses. Laboratory Results WBC 5.62 10^3/uL (3.29-11.43) 07/01/24 12:02 RBC 5.00 10^6/uL (3.85-5.65) 07/01/24 12:02 Hgb 14.70 g/dL (11.27-16.99) 07/01/24 12:02 Hct 45.0 % (37-53) 07/01/24 12:02 MCV 90.0 fl (82-101) 07/01/24 12:02 MCH 29.4 pg (27-33) 07/01/24 12:02 MCHC 32.7 g/dL (30-55) 07/01/24 12:02 RDW 12.7 % (12.1-15.1) 07/01/24 12:02 Plt Count 191 10^3/cmm (157-399) 07/01/24 12:02 MPV 10.5 fL (7.4-10.4) H 07/01/24 12:02 Neut % (Auto) 76.4 % 07/01/24 12:02 Lymph % (Auto) 14.8 % 07/01/24 12:02 Grainger % (Auto) 6.0 % 07/01/24 12:02 Eos % (Auto) 0.7 % 07/01/24 12:02 Baso % (Auto) 1.2 % 07/01/24 12:02 Neut # (Auto) 4.29 10^3/uL (1.8-7.7) 07/01/24 12:02 Lymph # (Auto) 0.8 10^3/uL (0.8-4.8) 07/01/24 12:02 Grainger # (Auto) 0.3 10^3/uL (0.2-0.9) 07/01/24 12:02 Eos # (Auto) 0.0 10^3/uL (0.0-0.8) 07/01/24 12:02 Baso # (Auto) 0.1 10^3/uL (0.0-0.1) 07/01/24 12:02 Nucleated RBC % (auto) 0 % 07/01/24 12:02 Nucleated RBCs # 0.0 /100WBC 07/01/24 12:02 PT 13.50 SECONDS (12.1-14.9) 07/01/24 14:13 INR 0.97 (0.8-1.2) 07/01/24 14:13 APTT 25.0 SECONDS (23.9-36.7) 07/01/24 14:13 Sodium 139 mmol/L (136-145) 07/02/24 04:20 Potassium 4.2 mmol/L (3.5-5.1) 07/02/24 04:20 Chloride 103 mmol/L (98-107) 07/02/24 04:20 Carbon Dioxide 25 mmol/L (22-29) 07/02/24 04:20 Anion Gap 15.2 (5-19) 07/02/24 04:20 BUN 15 mg/dL (6-20) 07/02/24 04:20 Creatinine 1.0 mg/dL (0.7-1.2) 07/02/24 04:20 GFR Calculation 80.8 mL/min (90-130) L 07/02/24 04:20 Glucose 156 mg/dL (65-115) H 07/02/24 04:20 POC Glucose 136 mg/dL (70-110) H 07/01/24 11:19 Estimat Average Glucose 131 07/02/24 04:20 Hemoglobin A1c 6.2 % (4.0-6.0) H 07/02/24 04:20 Calculated Osmolality 292 mOsm/kg (285-295) 07/02/24 04:20 Calcium 8.8 mg/dL (8.5-10.5) 07/02/24 04:20 Phosphorus 3.5 mg/dL (2.5-4.5) 07/02/24 04:20 Magnesium 2.2 mg/dL (1.7-2.3) 07/02/24 04:20 Total Bilirubin 0.2 mg/dL (0.15-1.2) 07/02/24 04:20 AST 23 U/L (0-40) 07/02/24 04:20 ALT 36 U/L (0-41) 07/02/24 04:20 Alkaline Phosphatase 108 U/L (40-130) 07/02/24 04:20 Total Protein 6.1 g/dL (6.6-8.7) L 07/02/24 04:20 Albumin 3.9 g/dL (3.5-5.2) 07/02/24 04:20 Globulin 2.2 g/dL (1.3-4.6) 07/02/24 04:20 Triglycerides 1117 mg/dL (0-150) H 07/02/24 04:20 Cholesterol 277 mg/dL (0-200) H 07/02/24 04:20 LDL Cholesterol Direct 130 mg/dL (0-100) H 07/02/24 04:20 LDL Cholesterol, Calc Not Reportable 07/02/24 04:20 HDL Cholesterol 33 mg/dL (60-100) L 07/02/24 04:20 LDL/HDL Ratio Not Reportable 07/02/24 04:20 Cholesterol/HDL Ratio 8.39 mg/dL (1.0-5.00) H 07/02/24 04:20 Urine Color Yellow (Yellow) 07/01/24 12:24 Urine Appearance Clear (CLEAR) 07/01/24 12:24 Urine pH 5.5 (5-7) 07/01/24 12:24 Ur Specific [place] 1.034 (1.005-1.030) H 07/01/24 12:24 Urine Protein Negative (Negative) 07/01/24 12:24 Urine Glucose (UA) Trace (Normal) H 07/01/24 12:24 Urine Ketones Negative (Negative) 07/01/24 12:24 Urine Blood Negative (Negative) 07/01/24 12:24 Urine Nitrate Negative (Negative) 07/01/24 12:24 Urine Bilirubin Negative (Negative) 07/01/24 12:24 Urine Urobilinogen 0.2 mg/dL (Negative) 07/01/24 12:24 Ur Leukocyte Esterase Negative (Negative) 07/01/24 12:24 Urine RBC 0-2 /hpf (0-2) 07/01/24 12:24 Urine WBC 0-5 /hpf (0-5) 07/01/24 12:24 Ur Squamous Epith Cells 0-5 /hpf (0-5) 07/01/24 12:24 Amorphous Sediment Not Reportable 07/01/24 12:24 Urine Bacteria None seen /hpf (NONE) 07/01/24 12:24 Hyaline Casts 4.11 /lpf 07/01/24 12:24 Urine Opiates Screen Negative ng/mL (Negative) 07/01/24 12:24 Ur Barbiturates Screen Negative ng/mL (Negative) 07/01/24 12:24 Ur Phencyclidine Scrn Negative ng/mL (Negative) 07/01/24 12:24 Ur Amphetamines Screen Negative ng/mL (Negative) 07/01/24 12:24 U Benzodiazepines Scrn Negative ng/mL (Negative) 07/01/24 12:24 Urine Cocaine Screen Negative ng/mL (Negative) 07/01/24 12:24 U Marijuana (THC) Screen Negative ng/mL (Negative) 07/01/24 12:24 Vitals Last Vital Signs Temp 97.7 F 07/02/24 11:48 Pulse 65 07/02/24 14:00 Resp 15 07/02/24 11:48 BP 142/91 07/02/24 11:48 Pulse Ox 94 07/02/24 11:48 O2 Del Method Room Air 07/02/24 11:48 Discharge Plan Discharge Patient Disposition: Home Condition: Stable Prescriptions: New meclizine 25 mg tablet 25 mg PO TID PRN (Reason: dizziness) Qty: 20 0RF diazepam [Valium] 5 mg tablet 5 mg PO TID PRN (Reason: refractory dizziness) Qty: 10 0RF Continued atorvastatin 20 mg tablet 20 mg PO DAILY Qty: 90 1RF acetaminophen [Tylenol Arthritis Pain] 650 mg tablet extended release 650 mg PO Q8H PRN (Reason: pain) Qty: 90 1RF aripiprazole 10 mg tablet 10 mg PO DAILY Qty: 90 1RF losartan 50 mg tablet 50 mg PO DAILY Qty: 90 1RF Discharge Orders: Discharge Order (Routine); Ordered 07/02/24 Ordered By: Jesus Seo Referrals: Nicolas Braun MD [Primary Care Provider] - 4-7 days (We have notified your physician's clinic of the need for a follow-up appointment to be scheduled. If you have not heard from them within the next 2 business days, please call them directly. ) Discharge Diet: Advance as tolerated and Usual diet Discharge Activity: Resume usual activity and Increase activity as tolerated Patient Instructions: Diazepam (By mouth), Meclizine (By mouth), Vertigo (GEN), Opioid Safety, Pain Management, Stroke Stoplight Activity Restrictions/Additional Instructions: Take medications as prescribed. Return precautions discussed. Follow-up with PCP within 1 week. Discharge Attestations Time Spent in Discharge Care*: greater than 30 min Quality Metrics Clinical Quality Measures [ No reported AMI, CVA or VTE this stay] Coding Level of Care Code Acute Code for Chg Fwd Diagnoses Vertigo R42 Stroke determined by clinical assessment I63.9 Essential hypertension I10 Mixed hyperlipidemia E78.2 Hyperlipidemia type: mixed hyperlipidemia MARILYNN (obstructive sleep apnea) G47.33 Tobacco dependence F17.200 Hyperglycemia R73.9 Bipolar disorder, in partial remission, most recent episode mixed F31.77 Active/Remission status: in partial remission Most recent bipolar episode type: mixed
[2024-07-02 15:29] VITALS: BP 142/91; PULSE 75; RESP 16; TEMP 36.5; O2SAT 94
== END 2024-07-02 15:30 | disposition home or self-care (01) ==
LOC: ER 14:51 → ER IP 15:06 → MEDSURG 07-02 08:04 → ER IP 07-03 06:21
PROVIDERS: Admitting Provider Hospitalist; Emergency Provider Emergency Medicine; PCP Family Medicine; Visit Provider Internal Medicine
DX: R42 Dizziness and giddiness (principal); I10 Essential (primary) hypertension; E78.2 Mixed hyperlipidemia; F17.220 Nicotine dependence, chewing tobacco, uncomplicated; G47.33 Obstructive sleep apnea (adult) (pediatric); R73.9 Hyperglycemia, unspecified; F31.77 Bipolar disorder, in partial remission, most recent episode mixed; Z79.899 Other long term (current) drug therapy; Z88.8 Allergy status to other drugs, medicaments and biological substances; G62.9 Polyneuropathy, unspecified; I69.351 Hemiplegia and hemiparesis following cerebral infarction affecting right dominant side; I69.392 Facial weakness following cerebral infarction
CPT/HCPCS: 36415; 36416; 70450; 70496; 70498; 70553; 71045; 80053; 80061; 80306; 81001; 82962; 83036; 83721; 83735; 84100; 85025; 85610; 85730; 93005; 93306; 96372; 96374; 96375; 97161; 99285; G0378; J1650; J2405; J8597

== ENCOUNTER 2024-09-29 11:59 | Outpatient (CLI) | payer MEDICAID, SELFPAY | END 2024-09-29 12:00 | disposition home or self-care (01) | LOC: SLEEP 12:01 | PROVIDERS: PCP Family Medicine; Referring Provider Family Medicine; Visit Provider Family Medicine | DX: G47.33 Obstructive sleep apnea (adult) (pediatric) (principal) | CPT/HCPCS: 94762 ==

== ENCOUNTER 2024-11-27 20:53 | Emergency (ER) | payer MEDICAID, SELFPAY ==
[2024-11-27 20:58] VITALS: BP 134/83; PULSE 86; RESP 18; TEMP 37.1; O2SAT 95; BMI 36.2
--- OUTSIDE RECORDS SUMMARY | 2024-11-27 20:58 | XMS_ITS | Clinical Summary ---
Author Organization [facility] Address [address] [place] [address] Phone Care Team Providers Care Planner Name Role Phone Fernando Webster MD Primary Care Provider + Allergies No known active allergies Medications gabapentin (NEURONTIN) 300 mg capsule Take 300 mg by mouth 2 times daily. Active atorvastatin (LIPITOR) 20 mg tablet Take 20 mg by mouth daily. Active Immunizations Immunization Administration Dates Next Due (TDVAX)(7 YRS UP) TETANUS AN D DIPHTHERIA TOXOIDS, ADSORBED (2 LF OF TETANUS TOXOID AND 2 LF OF DIPHTHERIA TOXOID), 0.5ML (PF), IM 06/07/1993 Social History Tobacco Use Types Packs/Day Years Used Date Smoking Tobacco: Former Cigarettes Q uit: 2017 Smokeless Tobacco: Current Chew Tobacco Cessation:Ready to Q uit: Not Asked; Counseling Given: Not Answered Alcohol Use Standard Drinks/Week Comments Yes 0 (1 standard drink = 0.6 oz pur e alcohol) Sex and Gender Information Value Date Recorded Sex Assigned at Not on file Legal Sex Male 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 [employer] Gender Identity Not on file Sexual Orientation Not on file Last Filed Vital Signs Vital Sign Reading Time Taken Comments Blood Pressure 155/102 12/16/2021 5:30 PM CDT Pulse 73 12/16/2021 5:30 PM CDT Temperature 36.7 C (98 F) 12/16/2021 5:30 PM CDT Respiratory Rate 21 12/16/2021 5:30 PM CDT Oxygen Saturation 98% 12/16/2021 5:30 PM CDT Inhaled Oxygen Concentration - - Weight 107.4 kg (236 lb 12.5 oz) 12/16/2021 3:47 PM CDT Height 177.8 cm (5' 10 ) 12/16/2021 3:47 PM CDT Body Mass Index 33.97 12/16/2021 3:47 PM CDT Plan of Treatment Health Maintenance Due Date Last Done Comments DTAP/TDAP/TD VACCINES (2 - Tdap) 06/08/1993 06/07/18 94 HPV VACCINES (1 - Male 3-dose series) 1993 HEPATITIS B VACCINES (1 of 3 - 19+ 3-dose series) 11/21 COLORECTAL SCREENING 12/01/2023 Colorectal Cancer Screening 12/01/2023 FIT-DNA Q 3 years 12/01/2023 FIT/FOBT Q 1 year 12/01/2023 Flex Sig/CT Colonography Q 5 years 12/01/2023 INFLUENZA VACCINE (#1) 2024 Insurance [facility] [id number] Care Teams Planner Relationship Specialty Start Date End Date Fernando Webster MD [address] [place] [phone] PCP - General Family Practice 12/16/21
--- NOTE | 2024-11-27 21:10 | XRR_ITS ---
PROCEDURE INFORMATION: Exam: XR Chest Exam date and time: 11/27/2024 9:29 PM Age: 43 years old Clinical indication: Pain; Chest pressure; Additional info: Cp TECHNIQUE: Imaging protocol: Radiologic exam of the chest. Views: 1 view. COMPARISON: CR XR chest 1V portable [id number] 07/01/2024 11:43 AM FINDINGS: Lungs: There is a linear opacity in the lateral aspect of the left lung base which was also present previously. No consolidation. Pleural spaces: Unremarkable. No pleural effusion. No pneumothorax. Heart/Mediastinum: Unremarkable. No cardiomegaly. Bones/joints: Unremarkable. XR/XR chest 1V portable [id number] IMPRESSION: There is no evidence of active disease.
--- NOTE | 2024-11-27 21:10 | ECG_ITS ---
[facility] Test Date: 2024-11-27 Pat Name: Chester To Department: Room: Gender: Male Health/Safety Job Titles: : 1980 Requested By: Nitin Omalley Order Number: [id number] Holly MD: Sabra Gardner M.D. Measurements Intervals [place] Rate: 88 P: 58 NE: 140 QRS: 42 QRSD: 97 T: 51 QT: 339 QTc: 411 Interpretive Statements SINUS RHYTHM Compared to ECG 07/01/2024 11:33:53 No significant changes Electronically Signed On 11-28-2024 13:47:29 CDT by Sabra Gardner M.D. [email or web address]
[2024-11-27 21:56] LABS: Hematocrit 39.2 % (37-53); Hemoglobin 13.50 g/dL (11.27-16.99); Mean Corpuscular HGB Conc 34.4 g/dL (30-55); Mean Corpuscular Hemoglobin 30.9 pg (27-33); Mean Corpuscular Volume 89.7 fl (82-101); Nucleated Red Blood Cells % 0 %; Platelet Count 196 10^3/cmm (157-399); Red Blood Count 4.37 10^6/uL (3.85-5.65); White Blood Count 6.85 10^3/uL (3.29-11.43)
[2024-11-27 22:07] VITALS: BP 146/97; PULSE 88; RESP 16; O2SAT 95
[2024-11-27 22:17] LABS: Troponin(5th) Baseline < 6 ng/L (0-15)
[2024-11-27 22:19] LABS: Albumin Level 4.1 g/dL (3.5-5.2); Alkaline Phosphatase 103 U/L (40-130); Anion Gap 15.9 (5-19); Aspartate Amino Transferase 43 U/L (0-40); Blood Urea Nitrogen 12 mg/dL (6-20); Calcium 9.1 mg/dL (8.5-10.5); Carbon Dioxide 27 mmol/L (22-29); Chloride 101 mmol/L (98-107); Creatinine Clr Calc Pharmacy 93.7350; Globulin 2.2 g/dL (1.3-4.6); Glucose 160 mg/dL (65-115); Osmolality Calculated 293 mOsm/kg (285-295); Potassium 3.9 mmol/L (3.5-5.1); Sodium 140 mmol/L (136-145); Total Protein 6.3 g/dL (6.6-8.7)
[2024-11-27 22:31] LABS: Alanine Aminotransferase < 5 U/L (0-41)
[2024-11-27 23:15] VITALS: BP 165/93; PULSE 88; RESP 18; O2SAT 94
--- NOTE | 2024-11-27 23:26 | ECG_ITS ---
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 Measurements Intervals [place] Rate: 80 P: 61 IA: 172 QRS: 35 QRSD: 93 T: 44 QT: 358 QTc: 413 Interpretive Statements SINUS RHYTHM Compared to ECG 11/27/2024 21:01:13 No significant changes Electronically Signed On 11-28-2024 13:59:15 CDT by Sabra Gardner M.D. [email or web address]
[2024-11-27 23:30] VITALS: BP 143/92; PULSE 82; RESP 20; O2SAT 95
--- NOTE | 2024-11-28 00:14 | ED_ITS ---
HPI - Chest Pain 2 General: Chief Complaint: Chest Pain Stated Complaint: Chest Pains, BP High Time Seen by Provider: 11/27/24 21:36 Source: patient and family Mode of arrival: ambulatory History of Present Illness: Chest pressure discomfort in the left chest since 1 PM after he got too hot and got kind of faint feeling. Been steady in nature is mild to moderate comes even get evaluated. Has a history of hypertension hypercholesterol and bipolar. Related Data Previous Rx's ?Medication ?Instructions ?Recorded atorvastatin 20 mg tablet 20 mg PO DAILY #90 tabs 06/21 11/14 aripiprazole 10 mg tablet 10 mg PO DAILY #90 tabs 07/22 05/17 ondansetron 8 mg disintegrating 8 mg PO Q8H PRN nausea and 09/16/24 tablet vomiting 5 days #15 tabs auto -CPAP 6-16 cm mmHg setting #1 ea 10/03/24 with mask, tubing and supplies hydrochlorothiazide 12.5 mg tablet 12.5 mg PO QAM #30 tabs 11/10/24 losartan 100 mg tablet 100 mg PO DAILY #90 tabs Allergies Allergy/AdvReac Type Severity Reaction Status Date / Time paroxetine AdvReac Intermediate ADR-Dizzine Verified 11/01/24 12:03 ss Review of Systems 2 General: Reports: 10 or more systems reviewed and unremarkable except in HPI and below PFSH ED 2 PFSH: Medical History (Updated 11/28/24 @ 00:15 by Nitin Omalley MD) Hyperglycemia Vertigo Stroke determined by clinical assessment History of stroke 2013 left cerebral infarction with right weakness Facet arthritis, degenerative, lumbar spine Multiple lipomas MARILYNN (obstructive sleep apnea) Tobacco dependence chews Essential hypertension Peripheral neuropathy all extremities Bipolar disorder History of femoral angiogram Family history of colon cancer Hyperlipidemia Surgical History Status post lumbar spinal fusion S/P shoulder surgery Date of procedure: May 22, 2024 Pre-op diagnosis: Right shoulder impingement with possible rotator cuff tear and acromioclavicular joint osteoarthritis Procedure done: Open right acromioplasty with distal clavicle resection and bursectomy Surgeon: Zena Triplett MD History of colonoscopy with polypectomy (08/24/21) H/O esophagogastroduodenoscopy (08/24/21) H/O hemorrhoidectomy Family History Grandmother No problems noted. Grandfather Cancer lung Hyperlipidemia Hypertension Stroke Family/Other Cancer Uncle[place] Mother Cancer small cell lung Family/Other Cancer Aunt-breast Denies family history of Diabetes CAD (coronary artery disease) Clotting disorder Dementia Chronic kidney disease (CKD) Anesthesia complication Bleeding disorder Lung disease Social History Smoking and tobacco/nicotine status: never used tobacco/nicotine Second hand smoke exposure: No Alcohol intake: former Substance/Drug Use: never Caregiver/support person: No Lives independently: Yes Household members: spouse and children Marital status: Highest education level completed: GED or Equivalent service: No Current occupational status: employed Current occupation: [employer] Do you think of yourself as: Straight/Heterosexual Current gender identity: Male Physical Exam 2 Const: COMMON NORMALS: no acute distress, patient oriented x3, healthy appearing, alert and well nourished GENERAL APPEARANCE: well kempt and well developed HENMT: COMMON NORMALS: normocephalic, atraumatic, external ears normal and moist oral mucous membranes HEAD & SCALP: normocephalic and atraumatic E XTERNAL EAR: Yes external ears normal Eye: COMMON NORMALS: Equal, round and reactive pupils present, EOMs intact bilaterally and conjunctivae normal CONJUNCTIVA: Yes conjunctivae normal P UPIL: Yes Equal, round and reactive pupils present Neck/C-Spine: COMMON NORMALS: full ROM, no lymphadenopathy and supple Chest: CHEST: Yes Symmetrical chest wall rise and No Surgical scars present (Chest) Resp: COMMON NORMALS: normal respiratory effort, No retractions, No use of accessory muscles and clear to auscultation bilaterally AUSCULTATION: clear to auscultation bilaterally Cardio: COMMON NORMALS: regular rate, regular rhythm, S1 normal heart sound present, S2 normal heart sound present, No gallops present (Cardio), No clicks present (Cardio), No murmurs present (Cardio) and No rub (Cardio) RATE: r egular rate RHYTHM: regular rhythm HEART SOUNDS: S1 normal heart sound present, S2 normal heart sound present and no murmurs PERIPHERAL PULSES: o ther (Radial pulses 2+ and symmetric) GI: COMMON NORMALS: Soft to palpation, non-tender and no masses INSPECTION: No abdominal distension PALPATION: Yes Soft to palpation, No Guarding due to palpation present (GI) and No Rebound tenderness present : COMMON NORMALS: Yes no CVA tenderness BLADDER/KIDNEY EXAM: Yes no CVA tenderness Back/Pelvis: COMMON NORMALS: no CVA tenderness Extremity: COMMON NORMALS: normal to inspection, full ROM, capillary refill normal and no clubbing, cyanosis or edema Neuro: COMMON NORMALS: patient oriented x3 SENSORIUM/ORIENTATION: Yes alert Psych: APPEARANCE: Yes well kempt Skin: COMMON NORMALS: no rashes or lesions noted, no wounds, turgor normal and no jaundice GENERAL SKIN EXAM: no rashes or lesions noted and turgor normal Course 2 Vital Signs: Vital signs: Vital Signs Temperature 98.7 F 11/27/24 20:58 Pulse Rate 82 11/27/24 23:30 Respiratory Rate 20 H 11/27/24 23:30 Blood Pressure 143/92 11/27/24 23:30 Pulse Oximetry 95 11/27/24 23:30 Oxygen Delivery Me thod Room Air 11/27/24 22:07 MDM - Chest Pain Medical Decision Making 43-year-old male with chest discomfort. Comes in for evaluation going for several hours and has a negative troponin. Patient was out in the heat a good bit when this started. Did feel that in the heat. Heart score 3, advised if he gets worse to come back and to follow-up with PCP for possible referral to cardiology. Medical Records I reviewed the patient's medical records. Lab Data I reviewed the patient's lab results. 11/27/24 21:50 11/27/24 21:50 Radiology Impressions Chest X-Ray 11/27/24 21:10 IMPRESSION: There is no evidence of active disease. Laboratory Results WBC 6.85 10^3/uL (3.29-11.43) 11/27/24 21:50 RBC 4.37 10^6/uL (3.85-5.65) 11/27/24 21:50 Hgb 13.50 g/dL (11.27-16.99) 11/27/24 21:50 Hct 39.2 % (37-53) 11/27/24 21:50 MCV 89.7 fl (82-101) 11/27/24 21:50 MCH 30.9 pg (27-33) 11/27/24 21:50 MCHC 34.4 g/dL (30-55) 11/27/24 21:50 RDW 12.1 % (12.1-15.1) 11/27/24 21:50 Plt Count 196 10^3/cmm (157-399) 11/27/24 21:50 MPV 9.8 fL (7.4-10.4) 11/27/24 21:50 Neut % (Auto) 58.3 % 11/27/24 21:50 Lymph % (Auto) 27.9 % 11/27/24 21:50 [place] % (Auto) 9.9 % 11/27/24 21:50 Eos % (Auto) 2.6 % 11/27/24 21:50 Baso % (Auto) 1.0 % 11/27/24 21:50 Neut # (Auto) 3.99 10^3/uL (1.8-7.7) 11/27/24 21:50 Lymph # (Auto) 1.9 10^3/uL (0.8-4.8) 11/27/24 21:50 [place] # (Auto) 0.7 10^3/uL (0.2-0.9) 11/27/24 21:50 Eos # (Auto) 0.2 10^3/uL (0.0-0.8) 11/27/24 21:50 Baso # (Auto) 0.1 10^3/uL (0.0-0.1) 11/27/24 21:50 Nucleated RBC % (auto) 0 % 11/27/24 21:50 Nucleated RBCs # 0.0 /100WBC 11/27/24 21:50 Sodium 140 mmol/L (136-145) 11/27/24 21:50 Potassium 3.9 mmol/L (3.5-5.1) 11/27/24 21:50 Chloride 101 mmol/L (98-107) 11/27/24 21:50 Carbon Dioxide 27 mmol/L (22-29) 11/27/24 21:50 Anion Gap 15.9 (5-19) 11/27/24 21:50 BUN 12 mg/dL (6-20) 11/27/24 21:50 Creatinine 1.3 mg/dL (0.7-1.2) H 11/27/24 21:50 GFR Calculation 59.7 mL/min (90-130) L 11/27/24 21:50 Glucose 160 mg/dL (65-115) H 11/27/24 21:50 Calculated Osmolality 293 mOsm/kg (285-295) 11/27/24 21:50 Calcium 9.1 mg/dL (8.5-10.5) 11/27/24 21:50 Total Bilirubin 0.3 mg/dL (0.15-1.2) 11/27/24 21:50 AST 43 U/L (0-40) H 11/27/24 21:50 ALT < 5 U/L (0-41) 11/27/24 21:50 Alkaline Phosphatase 103 U/L (40-130) 11/27/24 21:50 Troponin T Baseline < 6 ng/L (0-15) 11/27/24 21:50 Total Protein 6.3 g/dL (6.6-8.7) L 11/27/24 21:50 Albumin 4.1 g/dL (3.5-5.2) 11/27/24 21:50 Globulin 2.2 g/dL (1.3-4.6) 11/27/24 21:50 All radiology interpretation(s) finalized by discharge Discharge Plan Discharge Patient Disposition: Home Clinical Impression: Heat effect, Chest heaviness Condition: Stable Prescriptions: No Action (DME) auto -CPAP 6-16 cm mmHg setting with mask, tubing and supplies See Rx Instructions .ROUTE .MEDSUPPLY Qty: 1 0RF Rx Instructions: As directed ondansetron 8 mg tablet,disintegrating 8 mg PO Q8H PRN (Reason: nausea and vomiting) 5 Days Qty: 15 0RF aripiprazole 10 mg tablet 10 mg PO DAILY Qty: 90 1RF atorvastatin 20 mg tablet 20 mg PO DAILY Qty: 90 1RF hydrochlorothiazide 12.5 mg tablet 12.5 mg PO QAM Qty: 30 1RF losartan 100 mg tablet 100 mg PO DAILY Qty: 90 1RF Discharge Orders: Discharge ED (Routine); Ordered 11/28/24 Ordered By: Nitin Omalley Referrals: Nicolas Braun MD [Primary Care Provider, Family Practice] Patient Instructions: Patient Portal & Sheng Instructions, Heat Exhaustion (ED) Activity Restrictions/Additional Instructions: Continue current home medications. Make sure to take it easy, drink plenty of water. Return to the ER as needed. Print Language: Singaporean Coding Level of Care Code ED Freight Delivery Driver for Ricky Verdin
[2024-11-28 00:52] VITALS: BP 141/94; PULSE 77; RESP 18; O2SAT 98
== END 2024-11-28 00:55 | disposition home or self-care (01) ==
PROVIDERS: Emergency Provider Emergency Medicine; PCP Family Medicine
DX: T67.8XXA Other effects of heat and light, initial encounter (principal); R07.89 Other chest pain; X30.XXXA Exposure to excessive natural heat, initial encounter; E78.5 Hyperlipidemia, unspecified; I10 Essential (primary) hypertension
CPT/HCPCS: 36415; 71045; 80053; 84484; 85025; 93005; 99285; J7030

== ENCOUNTER 2025-01-22 07:00 | Outpatient (CLI) | payer OTHER, MEDICAID, SELFPAY ==
--- NOTE | 2025-01-22 07:00 | USCV_ITS ---
Chester To Age: 44 Gender: M : 1980 Exam Date: 01/22/2025 07:19 Ordering Phys: Nicolas Braun MD Technologist: Exam Location: [facility] Indication: DIZZY BP: 198 / 100 HR: 72 Rhythm: Sinus Technical Quality: Adequate MEASUREMENTS (Male / Female) Normal Values 2D ECHO LV Diastolic Diameter PLAX 4.5 cm 4.2 - 5.9 / 3.9 - 5.3 cm IVS Diastolic Thickness 1.2 cm 0.6 - 1.0 / 0.6 - 0.9 cm IVS Systolic Thickness 1.7 cm LVPW Diastolic Thickness 1.2 cm 0.6 - 1.0 / 0.6 - 0.9 cm LVPW Systolic Thickness 1.8 cm LVOT Diameter 2.1 cm LV Ejection Fraction 2D Teich 63.8 % LV Ejection Fraction MOD 4C 66.0 % LV Ejection Fraction MOD 2C 65.6 % LV Ejection Fraction 2C AL 65.8 % LA Diameter 3.5 cm RA Systolic Volume 4C AL 40.0 ml RA Systolic Volume 4C MOD 38.1 ml Aorta at Sinotubular Diameter 3.6 cm M-MODE LA Ao Ratio MM 1.4 AV Cusp Separation MM 2.2 cm DOPPLER AV Peak Velocity 122.0 cm/s LVOT Peak Velocity 100.0 cm/s AV Area Cont Eq vti 3.0 cm squared AV Area Cont Eq pk 2.8 cm squared MV Area PHT 3.1 cm squared Mitral E to A Ratio 1.4 TR Peak Velocity 173.0 cm/s TR Peak Gradient 12.0 mmHg TV Peak E Velocity 103.0 cm/s PV Peak Velocity 91.0 cm/s FINDINGS Left Ventricle Normal left ventricular size, systolic function and wall thickness, with no regional wall motion abnormalities. Left ventricular ejection fraction is estimated at 60 %. Normal diastolic function. Right Ventricle Normal right ventricular size and systolic function. Right Atrium Normal right atrial size. Left Atrium Normal left atrial size. IA Septum Normal appearance of the interatrial septum. Mitral Valve Normal mitral valve structure. No mitral valve stenosis or regurgitation. Aortic Valve Moderate aortic valve calcification. No aortic valve stenosis. Trace aortic valve regurgitation. Tricuspid Valve Normal tricuspid valve structure. No tricuspid valve stenosis or regurgitation. Normal pulmonary pressure. Pulmonic Valve Normal pulmonic valve structure. No pulmonic valve stenosis or regurgitation. Pericardium No pericardial effusion. Aorta Normal diameter of the aortic root and ascending thoracic aorta. IVC Normal IVC diameter. CONCLUSIONS Normal left ventricular size, systolic function and wall thickness with ejection fraction of 60 %. Normal right ventricular size and systolic function. Moderate aortic valve calcification. No aortic valve stenosis. Trace aortic valve regurgitation. There is no pericardial effusion. Right atrial pressure is around 5 mm of mercury. Ryan Rene MD (Electronically Signed) Final Date: 29 January 2025 17:40 S
--- NOTE | 2025-01-22 07:45 | USCV_ITS ---
Chester To Age: 44 Gender: M : 1980 Exam Date: 01/22/2025 07:36 Ordering Phys: Nicolas Braun MD Technologist: Exam Location: [facility] Indication: dizzy Risk Factors: Previous Vascular Surgery: [place] of Lt opthamic art Right Brachial BP: / Left Brachial BP: / Right Left Velocity (cm/s) Spectral Plaque Velocity (cm/s) Spectral Plaque Syst/Diast Broadening Syst/Diast Broadening 72.60/ 29.70 Prox CCA 120.70/ 38.00 83.00/ 31.00 Mid CCA 110.10/ 35.90 73.90/ 19.40 Distal CCA 97.40 / 31.60 102.70/29.80 Prox ICA 97.00 / 21.40 74.80/ 29.80 Mid ICA 113.90/ 29.40 85.50/ 40.50 Distal ICA 60.80 / 27.10 132.70 ECA 121.00 1.40 ICA/CCA 1.20 Antegrade Vertebral Antegrade 38.40/ 12.60 cm/s 45.60/ 12.30 cm/s Tri Subclavian Tri 74.80 137.3 0 CONCLUSIONS Right ICA stenosis <50%. Right ICA stenosis <50%. Intimal thickening in the common carotid arteries and internal carotid arteries bilaterally. Normal antegrade Doppler flow noted in the right vertebral artery. Normal antegrade Doppler flow noted in the left vertebral artery. Stefan Fenton MD (Electronically Signed) Final Date: 22 January 2025 11:33 S
== END 2025-01-22 07:01 | disposition home or self-care (01) ==
LOC: RAD 07:01
PROVIDERS: PCP Family Medicine; Visit Provider Family Medicine
DX: R42 Dizziness and giddiness (principal); I10 Essential (primary) hypertension
CPT/HCPCS: 93306; 93880

== ENCOUNTER → 2025-01-23 15:26 | Outpatient (BNVA) | payer OTHER, MEDICAID, SELFPAY | PROVIDERS: PCP Family Medicine; Visit Provider Family Medicine | DX: N17.9 Acute kidney failure, unspecified (principal) | CPT/HCPCS: 80048 ==

== ENCOUNTER → 2025-01-26 08:12 | Outpatient (BNVA) | payer OTHER, MEDICAID, SELFPAY | PROVIDERS: PCP Family Medicine; Visit Provider Family Medicine | DX: N17.9 Acute kidney failure, unspecified (principal) | CPT/HCPCS: 80048; 83036 ==

== ENCOUNTER → 2025-04-06 11:19 | Outpatient (BNVA) | payer OTHER, MEDICAID, SELFPAY | PROVIDERS: PCP Family Medicine; Visit Provider Nurse Practitioner | DX: R53.83 Other fatigue (principal) | CPT/HCPCS: 87400; 87426 ==

== ENCOUNTER 2025-04-17 19:25 | Emergency (ER) | payer OTHER, MEDICAID, SELFPAY ==
[2025-04-17 19:36] VITALS: BP 125/65; PULSE 119; RESP 17; TEMP 37.1; O2SAT 95; BMI 36.2
--- OUTSIDE RECORDS SUMMARY | 2025-04-17 19:40 | XMS_ITS | Continuity of Care Document ---
Author Organization GINO - Maci Rivera, [facility] ([facility]) Address [address] [place] [address] Assessment No assessment recorded. Plan of Treatment Reminders Order Date Submit Date Provider Last Modified By Organization Details Last Modified Time Details Appointments None recorded. Lab None recorded. Referral None recorded. Procedures None recorded. Surgeries None recorded. Imaging None recorded. Medication Orders mupirocin 2 % topical ointment 2024 025 [facility], [address], [place], [address], 14:22:55 sulfamethox azole 800 mg-trimetho prim 160 mg tablet 2024 025 [facility], [address], [place], [address], 14:22:56 Patient TargetsNo targets recorded. Patient InstructionsNo instructions recorded. Reason for Referral None Reported. Medical Equipment None Reported. Allergies No known drug allergies Medications Name Sig Start Date Stop Date Status Note LastModified by Organization Details LastModified Time hydrocodo ne 5 mg-acetam inophen 325 mg tablet every six hours 04/11 completed ER prescrib ed; 0; Recorded 02/05/20 9:59AM by Daysi Ascencio, Office Visit; Not Available Not Available Not Available sulfameth oxazole 800 mg-trimet hoprim 160 mg tablet Take 1 tablet every 12 hours by oral route for 5 days. 2024 active Not Available Not Available Not Avai lable diclofena c sodium 75 mg tablet,de layed release every 12 hours 04/11 completed ER prescrib ed.; 0; Recorded 02/05/20 19 9:59AM by Daysi Ascencio, Office Visit; Not Available Not Available Not Available mupirocin 2 % topical ointment APPLY A SMALL AMOUNT TO THE AFFECTED AREA BY TOPICAL ROUTE 3 TIMES PER DAY x 7days 2024 active Not Available Not Available Not Avai lable atorvasta tin active Not Available Not Available Not Available hydrochlo rothiazid e active Not Available Not Available Not Available losartan active Not Available Not Avai lable Not Available aripipraz ole active Not Available Not Available Not Available Vitals Date Recorded Body weight Body mass index (BMI) Body height Body temperature Heart rate Oxygen saturation Systolic And Diastolic Provider Name and Address Organization Details Last Updated DateTime 423463. 82 g 36.3 kg/m2 180.34 cm 98.3 [degF] 94 /min 96 % 162/88 mm[Hg] Juliet Kay [facility] 14:12:48 Social History Question Answer Notes LastModified by [address] Details LastModified Time Tobacco Smoking Status Never Smoker Juliet Kay [facility] 04/11/2025 14:09:46 What Was The Date Of Your Most Recent Tobacco Screening? 04/11/2025 [email or web address] Information not available 04/11/2025 Sex: Unknown Functional Status Question Answer Note LastModified by [address] Details LastModified Time Do you or have you ever used any other forms of tobacco or nicotine? Yes [email or web address] Information not available 04/11/2025 Do you or have you ever used smokeless tobacco? Currently chews tobacco [email or web address] Information not available 04/11/2025 Mental Status None recorded. Family History Nothing Reported Notes:Maternal Grandmother: Hypertension Medical History No medical history recorded. Immunizations Vaccine Type Date Status Note Provider Nam e and Address Organization Details Recorded Time Influenza, split virus, trivalent, preservative 3 completed Not Available [facility] 11/18/2022 02:34:11 Td (adult), 2 Lf tetanus toxoid, preservative free, adsorbed 4 completed Not Available [facility] 04/11/2025 13:58:29 Influenza, split virus, trivalent, preservative 3 completed Not Available [facility] 04/11/2025 13:58:29 COVID-19, mRNA, LNP-S, PF, 100 mcg/0.5mL dose or 50 mcg/0.25mL dose 1 completed Not Available [facility] 04/11/2025 13:58:29 COVID-19, mRNA, LNP-S, PF, 100 mcg/0.5mL dose or 50 mcg/0.25mL dose 1 completed Not Available [facility] 04/11/2025 13:58:29 Past Encounters Encounter ID Performer Location Encounter Start Date Encounter Closed Date Diagnosis/Indication Diagnosis SNOMED-CT Code Diagnosis ICD10 Code Diagnosis IMO Codes Diagnosis Note [id number] GILMAR BENDER [facility] ([facility]) [address] [place] [address] 04/11/2025 13:55:39 04/11/2025 17:01:01 Paronychia of finger of left hand [id number] 1734315 L03.012 [id number] Abx as prescribed for skin infection. Complete full course. Keep site clean and dry. Wash with mild soap and water. Pat dry . Apply antibiotic ointment as directed. RTC with any new or worsening symptoms. Health Concerns Section Related Observation LastModified by Organization Detai ls LastModified Time None Recorded Concern Status LastModified by Organization Details LastModified Time None Recorded Payers Encounter Date Sequence Insurance Name Policy Number Policy Gutierrez Covered Member ID Gutierrez Member ID Guarantor Name 04/11/2025 1 [facility] (MEDICAID REPLACEMENT - HMO) TYSHAWN To [id number] Chester To 04/11/2025 1 [facility] (EPO) [place] To [id number] [place] To Notes Date Note Type Note Provider Name and Address Organization Details Recorded Time 04/11/2025 text/html ROS as noted in the HPI walk in ptPt left middle finger is red, swollen and painful for 3 days. GILMAR BENDER [address] [place], [address], [facility] 04/11/2025 14:23:05
--- OUTSIDE RECORDS SUMMARY | 2025-04-17 19:40 | XMS_ITS | Data Portability ---
Author Organization [facility] Clement Vega [facility] Maci Randle [facility] Address [address] [place] [address] Assessment No assessment recorded. Plan of Treatment Reminders Order Date Submit Date Provider Last Modified By Organization Details Last Modified Time Details Appointments None recorded. Lab None recorded. Referral None recorded. Procedures None recorded. Surgeries None recorded. Imaging None recorded. Medication Orders mupirocin 2 % topical ointment 2024 025 [facility], [address] [address], [address], 14:22:55 sulfamethox azole 800 mg-trimetho prim 160 mg tablet 2024 025 [facility], [address] [address], [place], [address], 14:22:56 Patient TargetsNo targets recorded. Patient InstructionsNo instructions recorded. Reason for Referral None Reported. Medical Equipment None Reported. Allergies No known drug allergies Medications Name Sig Start Date Stop Date Status Note LastModified by Organization Details LastModified Time hydrocodo ne 5 mg-acetam inophen 325 mg tablet every six hours 04/11 completed ER prescrib ed; 0; Recorded 02/05/20 19 9:59AM by Daysi Ascencio, Office Visit; Not Available Not Available Not Available sulfameth oxazole 800 mg-trimet hoprim 160 mg tablet Take 1 tablet every 12 hours by oral route for 5 days. 2024 active Not Available Not Available Not Avai lable diclofena c sodium 75 mg tablet,hurleyed release every 12 hours 04/11 completed ER [...] and Address Organization Details Last Updated DateTime 824771. 82 g 36.3 kg/m2 180.34 cm 98.3 [degF] 94 /min 96 % 162/88 mm[Hg] Juliet Kay [facility] 14:12:48 Social History Question Answer Notes LastModified by [employer] Details LastModified Time Tobacco Smoking Status Never Smoker Juliet Kay [facility] 04/11/2025 14:09:46 What Was The Date Of Your Most Recent Tobacco Screening? 04/11/2025 [email or web address] Information not available 04/11/2025 Sex: Unknown Functional Status Question Answer Note LastModified by [employer] Details LastModified Time Do you or have you ever used any other forms of tobacco or nicotine? Yes [email or web address] Information not available 04/11/2025 Do you or have you ever used smokeless tobacco? Currently chews tobacco [email or web address] Information not available 04/11/2025 Mental Status None recorded. Family History Nothing Reported Notes:Maternal Grandmother: Hypertension Medical History No medical history recorded. Immunizations Vaccine Type Date Status Note Provider Nam e and Address Organization Details Recorded Time Influenza, split virus, trivalent, preservative 3 completed Not Available [facility] 11/18/2022 02:34:11 Td (adult), 2 Lf tetanus toxoid, preservative free, adsorbed 4 completed Not Available [facility] 04/11/2025 13:58:29 Influenza, split virus, trivalent, preservative 3 completed Not Available [facility] 04/11/2025 13:58:29 COVID-19, mRNA, LNP-S, PF, 100 mcg/0.5mL dose or 50 mcg/0.25mL dose 1 completed Not Available [facility] 04/11/2025 13:58:29 COVID-19, mRNA, LNP-S, PF, 100 mcg/0.5mL dose or 50 mcg/0.25mL dose 1 completed Not Available [facility] 04/11/2025 13:58:29 Past Encounters Encounter ID Performer Location Encounter Start Date Encounter Closed Date Diagnosis/Indication Diagnosis SNOMED-CT Code Diagnosis ICD10 Code Diagnosis IMO Codes Diagnosis Note [id number] GILMAR BENDER [facility] ([facility]) [address] [place] [phone] 04/11/2025 13:55:39 04/11/2025 17:01:01 Paronychia of finger of left hand [id number] L03.012 [id number] Abx as prescribed for skin infection. Complete full course. Keep site clean and dry. Wash with mild soap and water. Pat dry . Apply antibiotic ointment as directed. RTC with any new or worsening symptoms. Health Concerns Section Related Observation LastModified by Organization Detai ls LastModified Time None Recorded Concern Status LastModified by Organization Details LastModified Time None Recorded Advance Directives Directive None Recorded Payers Insurance Date Sequence Insurance Name Policy Number Policy Gutierrez Covered Member ID Gutierrez Member ID Guarantor Name 04/13/2025 2 [facility] TYSHAWN To [id number] [place] To 04/13/2025 [place] [facility]ITUTIONAL ) TYSHAWN To [id number] [place] To 04/13/2025 1 [facility] ([facility]) [place] To [id number] [place] To 04/13/2025 [place] [facility] [place] To [id number] [place] To 04/13/2025 1 [facility] (MEDICAID REPLACEMENT - HMO) [facility] Chester To [id number] Chester To Notes Date Note Type Note Provider Name and Address Organization Details Recorded Time 04/11/2025 text/html ROS as noted in the HPI walk in ptPt left middle finger is red, swollen and painful for 3 days. EVELINA [facility] ATTENDANT [address] [place] [address], [phone], [facility] 04/11/2025 14:23:05
--- OUTSIDE RECORDS SUMMARY | 2025-04-17 19:40 | XMS_ITS | Clinical Summary ---
Author Organization 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 Gender Identity Not on file Sexual Orientation [...] VACCINES (2 - Tdap) 06/08/1993 06/07/18 94 HEPATITIS B VACCINES (1 of 3 - 19+ 3-dose series) 11/21 COLORECTAL SCREENING 12/01/2023 Colorectal Cancer Screening 12/01/2023 FIT-DNA Q 3 years 12/01/2023 FIT/FOBT Q 1 year 12/01/2023 Flex Sig/CT Colonography Q 5 years 12/01/2023 INFLUENZA VACCINE (#1) 2024 HPV VACCINES (No Doses Required) Completed Insurance [facility] [id number] Care Teams Fine Chemicals Operator Relationship Specialty Start Date End Date Fernando Webster MD [address] [place] [id number] PCP - General Family Practice 12/16/21
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
[2025-04-17 21:09] VITALS: BP 129/81; PULSE 110; O2SAT 91
[2025-04-17 21:14] VITALS: BP 129/81; PULSE 110; O2SAT 91
== END 2025-04-17 21:15 | disposition home or self-care (01) ==
PROVIDERS: Emergency Provider Physician Assistant; PCP Family Medicine
DX: L03.012 Cellulitis of left finger (principal); E78.5 Hyperlipidemia, unspecified; I10 Essential (primary) hypertension
CPT/HCPCS: 99283